=== PATIENT | female | born 1985 | race Caucasian/White ===

== ENCOUNTER 2021-10-05 08:28 | Outpatient (CLI) | payer OTHER, SELFPAY ==
[2021-10-05 13:51] LABS: Chloride* 106 mmol/L (96-114); Potassium* 4.2 mmol/L (3.6-5.1); Sodium* 138 mmol/L (135-149)
[2021-10-05 13:54] LABS: Carbon Dioxide* 26 mmol/L (20-32); Creatinine* 0.7 mg/dL (0.5-1.5); Estimated Glomerular Filt Rate 114.88; Hematocrit 35.9 % (33.0-51.0); Hemoglobin* 11.6 gm/dL (12.0-16.0); Mean Corpuscular HGB Conc 32 gm/dL (32-36); Mean Corpuscular Hemoglobin 26 pg (26-34); Mean Corpuscular Volume 81 fL (80-100); Platelet Count* 235 K/uL (140-440); Red Blood Count 4.46 m/uL (4.00-5.20); White Blood Count* 5.35 K/uL (4.50-11.00)
[2021-10-05 13:55] LABS: Blood Urea Nitrogen* 18 mg/dL (5-24); Calcium* 9.4 mg/dL (8.4-10.6); Glucose* 104 mg/dL (60-115)
[2021-10-05 14:04] LABS: Slide Review Reflex No
[2021-10-05 15:01] LABS: SARS PCR* Negative SARS-CoV-2 (Negative)
[2021-10-05 21:55] LABS: Thyroid Stimulating Hormone* < 0.015 uIU/mL (0.270-4.20)
== END 2021-10-05 08:29 | disposition home or self-care (01) ==
PROVIDERS: PCP Family Medicine; Visit Provider Family Medicine
DX: Z20.822 Contact with and (suspected) exposure to COVID-19 (principal); Z01.818 Encounter for other preprocedural examination; E03.9 Hypothyroidism, unspecified
CPT/HCPCS: 80048; 84443; 85027; 87635

== ENCOUNTER 2021-10-06 06:33 | Day surgery (SDC) | payer OTHER, SELFPAY ==
[2021-10-06] VITALS (51 sets, daily range): BP systolic 112–137; BP diastolic 56–83; PULSE 56–97; RESP 14–18; TEMP 36.4–36.9; O2SAT 89–99; BMI 46.3
[2021-10-06] MEDS: LACTATED RINGERS 1000 ML 1,000 ML 35 ML IV ×2 (06:30→09:24)
[2021-10-06 07:19] LABS: Ur HCG Qualitative* Negative (Negative)
--- NOTE | 2021-10-06 07:29 | PM.GSPRC ---
Operative Note Date of procedure: 10/06/21 Type of Procedure: 1. Excisional biopsy of the right breast retroareolar tissue. Procedure Description: After discussing the risks and benefits of the procedure, the patient signed informed consent.? The operative site was marked and the patient was brought to the operating room and placed on the operating table in supine position.? Care was taken to pad the patient's pressure points.?? The patient was then intubated by anesthesia.?? The operative site was then prepped and draped in the usual sterile fashion.? A time-out was then performed. Local anesthetic was injected in the right periareolar skin and skin incision was made with a scalpel spanning from 4 o'clock to 7 o'clock. A disk of retroareolar ductal breast tissue was then excised with cautery. Dilated retroareolar duct was noted immediately adjacent to the nipple. During the dissection this duct was entered and gold brown and minimally thickened mucus like clear discharge came out from this duct. There were no masses palpable in the specimen. The excised retroareolar breast tissue was inked for orientation and sent to pathology for permanent section. Hemostasis was achieved with cautery. Additional local anesthetic was injected in the surgical field. The dilated duct was oversewn with a [id number] 3-0 Vicryl suture. Retroareolar breast tissue was then re-approximated with interrupted 3-0 Vicryl stitches. Dermal layer was re-approximated with interrupted 3-0 Vicryl stitches and skin was closed with a running 4-0 Monocryl stitch. Steris and sterile pressure dressing was applied over the incision. All counts were correct at the end of the case. Dr. Johnson from OBGYN than proceeded with her portion of the procedure. Findings: A single dilated duct posterior to the nipple. The duct was entered and clear jelly-like material along with small amount of gold simple fluid was noted to come from the duct. Anesthesia: GETA Surgeon: Rickey Kidd MD Estimated blood loss (mL): 2 Condition: stable Disposition: other (OBGYN proceeded with their portion of the procedure.)
[2021-10-06] MEDS: SCOPOLAMINE 1 MG/3 DAY PATCH 1 PATCH TD (07:48)
[2021-10-06] MEDS: CLINDAMYCIN 900 MG/6 ML VIAL IVPB (08:50)
[2021-10-06] MEDS: BUPIVACAINE 0.25% 30 ML 5 ML INJECTION (09:17)
[2021-10-06] MEDS: VASOPRESSIN 20 UNIT/ML INJ 10 UNIT SUBCUT (09:22)
--- NOTE | 2021-10-06 10:47 | PM.PROC ---
Procedure Note Time Seen by Provider: 10:48 Date Seen: 10/06/21 Date of procedure: 10/06/21 Will [facility] bill your pro fee for this procedure?: Yes Pre-op diagnosis: 36yo with uterine fibroids and menorrhagia Procedure: Total vaginal hysterectomy, bilateral salpingectomy, diagnostic cystoscopy. Procedure Description: Operative note: I was asked to assist Francoise Johnson MD with the patient's surgery. I aided in dissection, visualization, and obtaining hemostasis. Please see Dr. Johnson note for complete details. Surgeon: Francoise Johnson MD Resource Specialist: Ankita Oakley Pathology: specimen obtained, sent to pathology (Uterus, bilateral fallopian tubes.) Condition: stable Disposition: floor
[2021-10-06] MEDS: ESTROGENS, CONJUGATED VAGINAL 0.625 MG/G CREAM 1 APPLIC VAGINAL (10:48)
--- NOTE | 2021-10-06 11:10 | W.PM.GYNPROC ---
Procedure Note Date Seen: 10/06/21 Procedure Details: PREOPERATIVE DIAGNOSIS: Menorrhagia, fibroid uterus POSTOPERATIVE DIAGNOSIS: Menorrhagia, fibroid uterus PROCEDURE: Total vaginal hysterectomy with bilateral salpingectomy, cystoscopy. 260 g uterus. SURGEON: Francoise Johnson MD STOCK COUNTER: Ankita Oakley MD ANESTHESIA: General IV FLUIDS: 1700 mL crystalloid EBL: 150 mL FINDINGS: 1. On exam under anesthesia, uterus was mobile and anteverted. There were no palpable adnexal masses. 2. Upon cystoscopy performed at end of procedure, the bladder mucosa was normal in appearance. There were bilateral ureteral jets and no injury to the bladder dome. 3. Weight of specimen was 260 g. COMPLICATIONS: None PROCEDURE IN DETAIL: Patient was taken to the operating room with IV running. Prior to her hysterectomy, she had excision of breast papilloma mass performed by Dr. Ponce. She was under general anesthesia. After the excision of breast papilloma, she was repositioned in dorsal lithotomy with her legs fully supported in candy-cane stirrups. She received gentamicin and clindamycin in preoperative prophylaxis. Exam under anesthesia was performed for the above noted findings. Baer catheter was inserted. Weighted speculum was inserted. Cervix was grasped along its anterior and posterior lips with thyroid Cb clamps. The cervical vaginal junction was circumferentially infiltrated with dilute vasopressin. The cervical vaginal junction was then incised circumferentially with scalpel. The vaginal epithelium was dissected bluntly off bilateral uterosacral ligaments. Anterior colpotomy was performed sharply, and a Hopkins retractor was placed between the bladder and the uterus. The posterior colpotomy was performed sharply, and a long weighted speculum was placed in the cul-de-sac. Bilateral uterosacral ligaments were clamped, cut, suture ligated with 0 Vicryl, and tagged for later identification. The cardinal ligaments were serially clamped, cut, and suture ligated bilaterally with 0 Vicryl. Finally, the remnants of the broad ligament were clamped, cut, and suture ligated bilaterally, ultimately freeing the uterus from its attachments to the pelvis. The uterus was delivered through the vagina. Bilateral ovaries were normal in appearance. The pedicles of the fallopian tubes were grasped. The LigaSure Impact device was used to divide the tube was from the investing mesosalpinx bilaterally, and each was sent to pathology. Hemostasis of these pedicles was noted. All pedicles were exam. There was persistent bleeding along the pedicles of the broad and cardinal ligaments. Multiple pbhcrn-zy-[id number] sutures of 2-0 Vicryl were used bilaterally to obtain hemostasis. The angles of the vaginal cuff were closed with a stitch of 0 Vicryl, incorporating the distal most aspect of the uterosacral pedicle into the closure. The intervening vaginal cuff was closed with a series of [id number]-lz-[id number] sutures of 0 Vicryl. Hemostasis was noted. All instruments were removed from the vagina. Baer catheter was removed from the patient's bladder. Patient was administered IV sodium fluorescein to aid in visualization of ureteral jets. Cystoscopy was performed, revealing bilateral ureteral jets and no injury to the bladder. The cystoscope was removed and the Baer catheter replaced. Vaginal packing coated with Premarin cream was then placed in the patient's vagina. Patient tolerated procedure well and was taken to recovery area in stable condition.
[2021-10-06] MEDS: fentaNYL 100 MCG/2 ML inj 50 MCG IV ×2 (11:15→11:20)
[2021-10-06] MEDS: HYDROmorphone 0.5 mg/0.5 ml inj IVP ×2 (11:34→11:44)
--- NOTE | 2021-10-06 12:28 | W.ANESCHARGE ---
Anesthesia Charges Start Date/Time Anesthesia Start Date: 10/06/21 Anesthesia Start Time: 07:50 Stop Date/Time Anesthesia Stop Date: 10/06/21 Anesthesia Stop Time: 11:03 Summary Emergency: No
[2021-10-06] MEDS: KETOROLAC 30 MG/ML inj IVP ×2 (13:12→19:17)
[2021-10-06] MEDS: LACTATED RINGERS 1000 ML 1,000 ML 125 ML IV ×2 (13:54→23:12)
--- NOTE | 2021-10-06 14:16 | W.ANESCHARGE ---
Anesthesia Charges Start Date/Time Anesthesia Start Date: 10/06/21 Anesthesia Start Time: 07:50 Stop Date/Time Anesthesia Stop Date: 10/06/21 Anesthesia Stop Time: 11:03 Summary Emergency: No
--- NOTE | 2021-10-06 14:42 | P.GYNPN_ITS ---
NATIONAL SALES REPRESENTATIVE - A/P Assessment and plan (1) H/O total vaginal hysterectomy: Status: Acute Plan Postop day 0 status post total vaginal hysterectomy. Appropriate postoperative course. EBL was 150 mL. She will have complete blood count at 3:00 p.m.. Is this is reassuring, she will receive Lovenox tonight in prophylaxis against DVT. Otherwise, advance diet as tolerated. Ambulate when ready. She will have a voiding trial in a.m.. Anticipate discharge tomorrow. Postoperative Procedures: Procedures Operation Date: 10/06/21 07:45 Actual Procedure Side Surgeon p #1 Breast Excision Retro Areolar Tissue (45 min) Right Rickey Kidd MD p #2 Total Vaginal Hysterectomy, Bilateral Salpingectomy, Cystoscopy Francoise Johnson MD Postoperative day: 0 Postoperative status: doing well Time Spent With Patient Time: Total time spent is greater than 50% in coordination of care (as documented) at patient's floor/unit and/or counseling patient: Time with patient: less than 15 minutes NATIONAL SALES REPRESENTATIVE- PN:Subj Post-Op Subjective Time Seen by Provider: 14:00 Date Seen: 10/06/21 Post Operative Details: Post-operative day 0: status post total vaginal hysterectomy, bilateral salpingectomy, cystoscopy Also status post excision of breast papilloma by Dr. Kris Castillo reports some pelvic discomfort/pressure. She does have a vaginal pack in place. She does receive some Toradol, and thinks this will help. She is interested in eating something. Denies any chest pain, shortness of breath, or nausea. NATIONAL SALES REPRESENTATIVE-PN: Obj Exam Physical Exam: Vital signs: Temp Pulse Resp BP Pulse Ox 97.7 F 61 14 137/81 98 10/06/21 13:12 10/06/21 13:58 10/06/21 13:58 10/06/21 13:58 10/06/21 13:58 Narrative: General: Pleasant, no acute distress Heart: Regular rate and rhythm, no murmur or gallop Lungs: Clear to auscultation bilaterally Abdomen: Soft, normoactive bowel sounds in all 4 quadrants, nontender, not distended, no rebound or guarding Lower extremities: SCDs in place bilaterally Urinary Catheter Management: 2-way Urethral: Cath placed during this visit: no NATIONAL SALES REPRESENTATIVE - PN: Obj Data Labs Labs: Laboratory Results - last 24 hr 10/06/21 10/06/21 06:40 07:05 Urine HCG, Qual Negative Blood Type O Negative Antibody Screen NEGATIVE Crossmatch (AHG) See Detail
--- NOTE | 2021-10-06 15:06 | PM.GYNDS1 ---
DS: Providers Provider Date Seen: 10/07/21 Date of admission: 10/06/2021 Primary care physician: Jomar Seaman MD Admitting Clinician: Francoise Johnson MD Consults: Rosa Ponce MD Attending Physician on discharge: Francoise Johnson MD Date of Discharge: 10/07/21 DS: Diagnosis Discharge Diagnosis (1) H/O total vaginal hysterectomy: Status: Acute ENTERPRISE SOFTWARE DEVELOPER-Discharge Summary Hospital Course Hospital Course Narrative: Patient is a 36 year old woman admitted on 10/06/2021 for excision of breast papilloma, performed by Dr. Ponce, by total vaginal hysterectomy with bilateral salpingectomy and cystoscopy. This was performed for indication of menorrhagia. Intraoperative findings were notable for a 260 g uterus. Surgery was uncomplicated. Postoperative course has been uneventful. Vitals have been stable. She has remained afebrile. Today, on postoperative day 1, she was doing well. Time Spent with Patient Time attestation: Total time spent providing and/or coordinating discharge services: ENTERPRISE SOFTWARE DEVELOPER - Exam Physical Exam: Vital signs: Temp Pulse Resp BP Pulse Ox 97.7 F 61 14 137/81 98 10/06/21 13:12 10/06/21 13:58 10/06/21 13:58 10/06/21 13:58 10/06/21 13:58 ENTERPRISE SOFTWARE DEVELOPER - DS: Data Data Completed and Pending Labs on day of discharge: Labs from last 24 hours 10/06/21 10/06/21 10/06/21 08:22 07:05 06:40 Urine HCG, Qual Negative Surg PTH (Off-Site) Pending Blood Type O Negative Antibody Screen NEGATIVE Crossmatch (AHG) See Detail Procedures Procedures: Procedures Operation Date: 10/06/21 07:45 Actual Procedure Side Surgeon p #1 Breast Excision Retro Areolar Tissue (45 min) Right Rickey Kidd MD p #2 Total Vaginal Hysterectomy, Bilateral Salpingectomy, Cystoscopy Francoise Johnson MD Discharge Plan Discharge Disposition: Home, Self-Care Discharging Surgeon: Francoise Johnson Follow-Up Appointment: [address] Johnson Prescriptions: New acetaminophen 325 mg Tablet 650 mg PO Q4H PRN (Reason: minor pain) Qty: 60 0RF oxycodone 5 mg Tablet 5 mg PO Q4H PRN (Reason: Moderate Pain) 7 Days Qty: 20 0RF ibuprofen 600 mg tablet 600 mg PO Q6H PRNQty: 60 0RF Continued escitalopram oxalate 20 mg tablet 20 mg PO DAILY 0RF levothyroxine 200 mcg tablet 200 mcg PO DAILY 0RF Rx Instructions: total dose 225 mcg QD levothyroxine 25 mcg tablet 25 mcg PO DAILY 0RF Rx Instructions: Total dose is 225 mcg QD No Action phentermine 37.5 mg capsule 37.5 mg PO DAILY Qty: 30 2RF Activity Level: No Restrictions Activity Detail: Nothing per vagina for 6 weeks. No lifting restriction. Discharge Diet: Regular Patient Instructions: Surgical Site Infections (DC), Vaginal Hysterectomy (DC) Additional Instructions: Hospital Course: Anna was admitted to the hospital on 10/06/2021 for a scheduled total vaginal hysterectomy to treat menorrhagia and uterine fibroids. Her surgery was uncomplicated. Her postoperative course was also uncomplicated. Her vaginal packing was removed in the evening on postop day 0. By postoperative day 1, she was tolerating a regular diet, ambulating without difficulty, passing flatus and pain was well controlled with oral pain medications. She would like to be discharged home today on postoperative day 1. Labs: Preoperative hemoglobin 11.6 on 10/05/2021, postoperative hemoglobin 11.2 on 10/06/2021. Objective: General: Alert and oriented x3. Pleasant, woman in no acute distress. Vital signs: See EMR. Heart: Regular rate and rhythm without gallop, rub or murmur. Chest: Clear to auscultation bilaterally. Abdomen: Soft, nontender, nondistended with normal bowel sounds throughout. No CVA or flank tenderness. Pelvic: Minimal vaginal bleeding, remainder of pelvic exam deferred. Extremities: No pain, edema, cyanosis or clubbing. Assessment: 36-year-old postoperative day 1 from a total vaginal hysterectomy doing well. Plan: 1. Discharge home today. 2. Activity restrictions reviewed with the patient. 3. Return to clinic to see Dr. Francoise Johnson for a postoperative visit in 2-3 weeks. Discharge instructions were reviewed with the patient including signs and symptoms of infection and medications to use for pain.? ? No lifting restriction. Nothing per vagina for 6 weeks. Off work or school for 4 weeks. ? Follow up with your surgeon in 2-3 weeks for a postop exam. Forms: Work/Release Restrictions Follow-up: Francoise Johnson MD [Staff Physician] - Jomar Seaman MD [Primary Care Provider] - Discharge Orders: Discharge Order (Routine); Ordered 10/07/21 Ordered By: Ankita Oakley
[2021-10-06 15:38] LABS: Basophils Absolute Auto 0.01 K/uL (0.00-0.30); Basophils Percent Auto 0.1 % (0.0-3.0); Eosinophils Absolute Auto 0.01 K/uL (0.00-0.50); Eosinophils Percent Auto 0.1 % (0.0-7.0); Hematocrit 34.9 % (33.0-51.0); Hemoglobin* 11.2 gm/dL (12.0-16.0); Immature Granulocytes Abs Auto 0.01 K/uL (0.00-0.30); Lymphocytes Percent Auto 5.8 % (20-44); Mean Corpuscular HGB Conc 32 gm/dL (32-36); Mean Corpuscular Hemoglobin 26 pg (26-34); Mean Corpuscular Volume 80 fL (80-100); Monocytes Percent Auto 2.8 % (0.0-11.0); Neutrophils Percent Auto 91.1 % (42.0-72.0); Platelet Count* 238 K/uL (140-440); RDW Coefficient of Variation % 14.2 % (11.5-15.5); Red Blood Count 4.34 m/uL (4.00-5.20); White Blood Count* 10.08 K/uL (4.50-11.00)
[2021-10-06 15:43] LABS: Slide Review Reflex No
[2021-10-06] MEDS: ACETAMINOPHEN 325 MG TABLET 650 MG PO (18:26)
[2021-10-06] MEDS: OXYCODONE 5 MG TABLET PO (20:03)
[2021-10-06] MEDS: ENOXAPARIN 40 MG/0.4 ML INJ SUBCUT (20:04)
[2021-10-07] MEDS: ACETAMINOPHEN 325 MG TABLET 650 MG PO ×3 (00:23→08:14)
[2021-10-07] MEDS: OXYCODONE 5 MG TABLET PO ×3 (00:24→08:15)
[2021-10-07 00:27] VITALS: BP 110/67; PULSE 60; RESP 16; TEMP 36.4; O2SAT 97
[2021-10-07] MEDS: KETOROLAC 30 MG/ML inj IVP (01:19)
[2021-10-07 04:31] VITALS: BP 107/68; PULSE 83; RESP 16; TEMP 36.6; O2SAT 96
[2021-10-07 07:36] VITALS: BP 108/70; PULSE 60; RESP 16; TEMP 36.7; O2SAT 99
[2021-10-07 07:42] VITALS: PULSE 60; RESP 16
== END 2021-10-07 09:40 | disposition home or self-care (01) ==
LOC: OR 06:34 → MEDSURG 06:40 → OB 09:52
PROVIDERS: Obstetrics & Gynecology; PCP Family Medicine; Visit Provider Surgery
PROC: (CPT 19120; principal; 2021-10-06 07:30)
PROC: 0UT94ZZ Resection of Uterus, Percutaneous Endoscopic Approach (ICD-10-PCS; CPT 58291; 2021-10-06 07:30)
DX: N92.0 Excessive and frequent menstruation with regular cycle (principal); D25.9 Leiomyoma of uterus, unspecified; D24.1 Benign neoplasm of right breast
CPT/HCPCS: 58291; 19120; 00944; 36415; 81025; 82565; 85018; 85025; 86850; 86900; 86901; 86922; 88307; A9270; J0330; J1100; J1170; J1580; J1650; J1885; J2250; J2704; J3010; J3490; J7120; S0077

== ENCOUNTER 2022-02-13 09:42 | Outpatient (CLI) | payer OTHER, SELFPAY ==
--- OUTSIDE RECORDS SUMMARY | 2022-02-13 09:56 | XMS_ITS | Encounter Summary ---
:1985 Author Organization [facility] Address [address] [place] [address] Care Team Providers Name Role Phone No Ref-Primary, Physician Primary Care Provider [phone] Hawa Valderrama PETROLEUM PRODUCTION ENGINEER Unavailable Reason for Visit Reason Onset Date Comments Schedule Surgery 04/02/2020 RIGHT BREAST SEED LO CALIZED EXCISIONAL BIOPSY GENERAL PT INST TO HAVE H&P WIT H PCP 60 MIN REQ PA ASSIST DJM NMS SEED AT 8:00 AM NMS Encounter Details Date Type Department Care Team Description 04/02/2020 Telephone [facility] Marina Mix MD Schedule Surgery Surgery Clinic [address] (RIGHT BREAST SEED [place] [address] LOCALIZED EXCISIONAL [address] [facility] [place] [address] BIOPSY GENERAL PT INST [address] TO HAVE H&P WITH PCP [place], [place] 60 MIN REQ PA ASSIST [id number] DJM NMS SEED AT 8:00 AM NMS ) Social History Tobacco Use Types Packs/Day Years Used Date Smoking Tobacco: Never Smokeless Tobacco: Never Alcohol Habits Answer Date Recorded How often do you have a drink containing alcohol? Never 04/19/2020 How many drinks containing alcohol do you have on a typical Not asked day when you are drinking? How often do you have six or more drinks on one occasion? No t asked Sex Assigned at Date Recorded Not on file COVID-19 Exposure Response Date Recorded In the last month, have you been in contact with No / Unsure 04/01/2020 3:49 PM TRADES HELPER someone who was confirmed or suspected to have Coronavirus / COVID-19? documented as of this encounter Miscellaneous Notes Telephone Encounter - Maria Luisa Kim CMA - 04/02/2020 9:50 AM CST Type of surgery: RIGHT BREAST SEED LOCALIZED EXCISIONAL BIOPSY Location of surgery: [facility] Date and time of surgery: 05/14/2020 @ 10:00 AM Surgeon: MARINA MIX MD Pre-Op Appt Date: PATIENT TO SCHEDULE Post-Op Appt Date: PATIENT TO SCHEDULE Packet sent out: Yes Pre-cert/Authorization completed: Not Applicable Date: 04/01/2020 RIGHT BREAST SEED LOCALIZED EXCISIONAL BIOPSY GENERAL PT INST TO HAVE H&P WITH PCP 60 MIN REQ PAASSIST MADDI NMS SEED AT 8:00 AM NMS ES HELPER documented in this encounter Plan of Treatment Not on filedocumented as of this encounter Visit Diagnoses Not on filedocumented in this encounter Care Teams Identity Management Consultant Relationship Specialty Start Date End Date No Ref-Primary, Physician PCP - General 04/01/20 Hawa Valderrama, KEN Assigned PCP 03/25/20 [place] [address] documented as of this encounter
--- OUTSIDE RECORDS SUMMARY | 2022-02-13 09:56 | XMS_ITS | Encounter Summary ---
:1985 Author Organization [facility] Address [address] [place] [address] Care Team Providers Name Role Phone No Ref-Primary, Physician Primary Care Provider [phone] Hawa Valderrama NP Unavailable Jomar Castro MD Unavailable Reason for Referral Diagnostic Imaging Ultrasound (Routine) - Closed Specialty Diagnoses / Procedures Referred By Contact Refer red To Contact Diagnoses Papilloma of right breast Jomar Castro MD Procedures US Breast Radioactive Seed Placement, 1St Lesion Right [address] [facility] [address] [place] [address] Referral ID Status Reason Start Date Expiration Date Visits Requ ested Visits Authorized [id number] Closed 04/02/2020 04/02/2021 1 1 N HOSPITALIST PHYSICIAN Reason for Visit Auth/Cert Specialty Diagnoses / Procedures Referred By Contact Refer red To Contact Surgery Diagnoses Papilloma of breast Papilloma of breast [D24.9] Rh Periop Services Procedures HC BX BREAST W DEVICE 1ST LESION, STEREOTACTIC GUIDE HC BX BREAST W DEVICE 1ST LESION, ULTRASOUND GUIDE HC BX BREAST W DEVICE 1ST LESION, MAGNETIC RES GUIDE RIGHT BREAST SEED LOCALIZED EXCISIONAL BIOPSY [address] [place], [place] [address] Phone: Fax: Referral ID Status Reason Start Date Expiration Date Visits Requ ested Visits Authorized [id number] 1 1 Encounter Details Date Type Department Care Team Description 05/14/2020 Hospital Encounter [facility] Jomar Castro, Papilloma of right [facility] [address] [facility] [address] [place], [place] [id number] Social History Tobacco Use Types Packs/Day Years Used Date Smoking Tobacco: Never Smokeless Tobacco: Never Alcohol Use Standard Drinks/Week Comments Yes 0 (1 standard drink = 0.6 oz pure alcoho l) 2 drinks per year Alcohol Habits Answer Date Recorded How often [...] been in contact with No / Unsure 05/14/2020 6:57 AM OBGYN HOSPITALIST PHYSICIAN someone who was confirmed or suspected to have Coronavirus / COVID-19? documented as of this encounter Medications at Time of Discharge Medication Sig Dispensed Refills Start Date End Date levothyroxine Take 1 tablet (200 90 tablet 3 04/19/2020 (SYNTHROID/LEVOTHROID) 200 mcg) by mouth daily MCG tabletIndications: Other specified hypothyroidism oxyCODONE (ROXICODONE) 5 MG Take 1-2 tablets 10 tablet 0 tabletIndications: (5-10 mg) by mouth Papilloma of right breast every 4 hours as needed for moderate to severe pain documented as of this encounter Progress Notes Anuradha Bains - 05/14/2020 8:22 AM CST SBAR Seed Localization SITUATION: Patient to breast imaging center for imaging guided seed localizations before breast lumpectomy or excision biopsy without sentinel node injection. BACKGROUND: Breast imaging cancer, breast abnormality Ordered procedure completed: Yes Special needs identified: Yes ASSESSMENT: SBAR report called to patient care unit because of unexpected event in radiology: No Allergies and medication list reviewed prior to procedure. Yes Skin cleansed with ChloraPrep One-Step. Anesthesia: approximately 5ml of 1% Lidocaine injection subcutaneous before seed insertion administered by the radiologist. Gauze dressing over insertion site(s). Post procedure mammogram completed: Yes Patient tolerance: Patient tolerated procedure well. RECOMMENDATIONS: Patient transferred to Same Day Surgery in stable condition via wheelchair with Transport Services. Please call [facility] [place] [phone] if there are any questions. N HOSPITALIST PHYSICIAN documented in this encounter Plan of Treatment Not on filedocumented as of this encounter Procedures Procedure Name Priority Date/Time Associated Comments Diagnosis US BREAST RADIOACTIVE Routine 05/14/2020 8:22 AM Papilloma of right Results for this SEED PLACEMENT, 1ST OBGYN HOSPITALIST PHYSICIAN breast procedur e are in LESION RIGHT the results section. documented in this encounter Results US Breast Radioactive Seed Placement, 1St Lesion Right (05/14/2020 8:22 AM OBGYN HOSPITALIST PHYSICIAN) Anatomical Region Laterality Modality Breast Right Ultrasound Specimen (Source) Anatomical Location Collection Method / Collectio n Time Received Time / Laterality Volume Impressions 05/14/2020 8:26 AM OBGYN HOSPITALIST PHYSICIAN IMPRESSION: Successful placement of radioactive seed(s) for operative guidance. JUAN HAN MD Narrative 05/14/2020 8:26 AM OBGYN HOSPITALIST PHYSICIAN RIGHT BREAST SEED LOCALIZATION; POST SEED PLACEMENT RIGHT DIGITAL MAMMOG CINDA; 05/14/2020 8:24 AM HISTORY: Papilloma. Imaging directed loc alization requested prior to excision. COMPARISON: 03/25/2020 PROCEDURE: ??Informed consent was obtain ed prior to the procedure. ??The skin overlying the target lesion was mar ked, sterilized and anesthetized using 1% lidocaine. ??Using continuous ultrasound guidance, one radioactive seed(s) was/we re deployed adjacent to biopsy marker. ??Adequate placement was confirm ed with imaging. ??Images were archived. There were no complications. Post procedure mammogram confirms satisf actory positioning of the seed(s). ??The images were annotated and provided to the surgeon. Total seed radiation dose: 0.170 mCi I12 5 Procedure Note Juan Han MD - 05/14/2020 RIGHT BREAST SEED LOCALIZATION; POST SEED PLACEMENT RIGHT DIGITAL MAMMOG CINDA; 05/14/2020 8:24 AM HISTORY: Papilloma. Imaging directed loc alization requested prior to excision. COMPARISON: 03/25/2020 PROCEDURE: Informed consent was obtained prior to the procedure. The skin overlying the target lesion was mar ked, sterilized and anesthetized using 1% lidocaine. Using c ontinuous ultrasound guidance, one radioactive seed(s) was/we re deployed adjacent to biopsy marker. Adequate placement was confirmed with imaging. Images were archived. There were no complications. Post procedure mammogram confirms satisf actory positioning of the seed(s). The images were annotated and p rovided to the surgeon. Total seed radiation dose: 0.170 mCi I12 5 IMPRESSION: Successful placement of radi oactive seed(s) for operative guidance. JUAN HAN MD Jomar Castro MD IMG US ORDERABLES documented in this encounter Visit Diagnoses Diagnosis Papilloma of right breast documented in this encounter Administered Medications Inactive Administered Medications - up to 3 most recent administrations Medication Order MAR Action Action Date Dose Rate Site lidocaine 1 % 5 mL Given 05/14/2020 8:12 AM OBGYN HOSPITALIST PHYSICIAN 5 mLs 5 mL, Subcutaneous, ONCE, On Sun05/14/20 at 0800, For 1 dose documented in this encounter Care Teams Heavy Forger Helper Relationship Specialty Start Date End Date No Ref-Primary, Physician PCP - General 04/01/20 Hawa Valderrama, KEN Assigned PCP 03/25/20 [address] [place] [address] Jomar Castro MD Assigned Surgical Provider 04/04/20 7 [address] [place] [id number] documented as of this encounter
--- OUTSIDE RECORDS SUMMARY | 2022-02-13 09:56 | XMS_ITS | Encounter Summary ---
:1985 Author Organization [place] Address [facility] [place] [address] Care Team Providers Name Role Phone No Ref-Primary, Physician Primary Care Provider [phone] Hawa Valderrama NP Unavailable Jomar Castro MD Unavailable Reason for Visit Auth/Cert Specialty Diagnoses / [...] LOCALIZED EXCISIONAL BIOPSY [address] [place], [place] [phone] Phone: Fax: Referral ID Status Reason Start Date Expiration Date Visits Requ ested Visits Authorized [id number] 1 1 Encounter Details Date Type Department Care Team Description 05/14/2020 Hospital Encounter [facility] Jomar Castro, Papilloma of right [facility] [address] [facility] [address] [facility], [address] [place] [id number] Social History Tobacco Use Types Packs/Day [...] with No / Unsure 05/14/2020 6:57 AM [employer] someone who was confirmed or suspected to [...] severe pain documented as of this encounter Plan of Treatment Not on filedocumented as of this encounter Visit Diagnoses Diagnosis Papilloma of right breast documented in this encounter Care Teams E Tailer Relationship Specialty Start Date End Date No Ref-Primary, Physician PCP - General 04/01/20 Hawa Valderrama NP Assigned PCP 03/25/20 [address] [place] [address] Jomar Castro MD Assigned Surgical Provider 04/04/20 [address] [place] [id number] documented as of this encounter
--- OUTSIDE RECORDS SUMMARY | 2022-02-13 09:56 | XMS_ITS | Encounter Summary ---
:1985 Author Organization [facility] [place] [address] Care Team Providers Name Role Phone No Ref-Primary, Physician Primary Care Provider [phone] Hawa Valderrama NP Unavailable Marina Castro MD Unavailable Reason for Visit Auth/Cert [...] LOCALIZED EXCISIONAL BIOPSY [address] [place], [place] [address] Phone: Fax: Referral ID Status Reason Start Date Expiration Date Visits Requ ested Visits Authorized [id number] 1 1 Encounter Details Date Type Department Care Team Description 05/14/2020 Hospital Encounter [facility] Marina Castro, Papilloma of breast; [facility] PreOP/PostOP Papilloma of breast; [address] [facility] [address] Papilloma of right breast [facility] [address] [id number] [place], [place] [phone] [id number] Social History Tobacco Use Types Packs/Day Years [...] with No / Unsure 05/14/2020 6:57 AM STAMP REDEMPTION CLERK someone who was confirmed or suspected to have Coronavirus / COVID-19? documented as of this encounter Last Filed Vital Signs Vital Sign Reading Time Taken Comments Blood Pressure 105/57 05/14/2020 12:50 PM STAMP REDEMPTION CLERK Pulse 59 05/14/2020 12:50 PM STAMP REDEMPTION CLERK Temperature 36.4 ??C (97.6 ??F) 05/14/2020 12:50 PM STAMP REDEMPTION CLERK Respiratory Rate 16 05/14/2020 12:50 PM STAMP REDEMPTION CLERK Oxygen Saturation 100% 05/14/2020 12:50 PM STAMP REDEMPTION CLERK Inhaled Oxygen Concentration - - Weight 122 kg (268 lb 14.4 oz) 05/14/2020 7:14 AM STAMP REDEMPTION CLERK Height 170.2 cm (5' 7) 05/14/2020 7:14 AM STAMP REDEMPTION CLERK Body Mass Index 42.12 05/14/2020 7:14 AM STAMP REDEMPTION CLERK documented in this encounter Discharge Instructions Discharge Agnes James RN - 05/14/2020 11:49 AM CST HOME CARE FOLLOWING BREAST BIOPSY Myrtle Pop, Princess Mccarty, R. O???Josue Anton RESULTS: You will receive a phone call from your surgeon or office staff with your pathology results. Occasionally special testing must be done on the surgical specimen which may delay the posting of your finalpathology report. You may call for your final pathology report after 1p.m. three working days after surgery to check on its status. INCISIONAL CARE: ??? If you have a dressing in place, keep clean and dry for 48 hours; you may replace the gauze if it becomes soiled. ??? After 48 hours you may remove the dressing and shower. Do not submerse incision in water for 1 week. ??? Sutures will absorb and do not need to be removed. ??? If present, leave the steri-strips (white paper tapes) in place for 14 days after surgery. ??? You may expect a small amount of drainage from your incision. ??? A lump/ridge under the incision is normal and will gradually resolve. SUPPORT: Wear a bra for support and comfort for 3-7 days, day and night. ACTIVITY: Cautiously resume exercise and strenuous activities such as jogging, tennis, aerobics, etc. Also, becareful of stretching activities with operative side for two weeks. DIET: Start with liquids and gradually resume your regular diet as tolerated. Increased fluid intake is recommended. While taking pain medications, consider use of a stool softener, increase your fiber in your diet, or add a fiber supplement (like Metamucil, Citrucel) to help prevent constipation - a possible side effect of pain medications. DISCOMFORT: Local anesthetic placed at surgery should provide relief for 4-8 hours. Begin taking pain pills before discomfort is severe. Take the pain medication with some food, when possible, to minimize side effects. Intermittent use of ice packs may help during the first 1-3 weeks after surgery. Expect gradual improvement. Ufzb-pav-npzttja anti-inflammatory medications (i.e. Ibuprofen/Advil/Motrin or Naprosyn/Aleve) may be used per package instructions in addition to or while tapering off the narcotic pain medications todecrease swelling and sensitivity. DO NOT TAKE these Anti-inflammatory medications if your primary physician has advised against doing so, or if you have acid reflux, ulcer, or bleeding disorder, or take blood-thinner medications. Call your primary physician or the surgery office if you have medication questions. FOLLOW-UP AFTER SURGERY: -Our office will contact you approximately 2-3 weeks after surgery to check on your progress and answer any questions you may have. If you are doing well, you will not need to return for an office appointment. If any concerns are identified over the phone, we will help you make an appointment to see a provider. -If you have not received a phone call, have any questions or concerns, or would like to be seen, please call us at [phone]. We are located at: [address], [address]; [place] [address] -CONTACT US IF THE FOLLOWING DEVELOPS: 1. A fever that is above 101?? 2. Increased redness, warmth, drainage, bleeding, or swelling. 3. Pain that is not relieved by rest/ice and your prescription. 4. Increasing pain after 48 hours. 5. Drainage that is thick, cloudy, yellow, green or white. 6. Any other questions or concerns. FREQUENTLY ASKED QUESTIONS: Q: How should my incision look? A: Normally your incision will appear slightly swollen with light redness directly along the incision itself as it heals. It may feel like a bump or ridge as the healing/scarring happens, and over time(3-4 months) this bump or ridge feeling should slowly go away. In general, clear or pink watery drainage can be normal at first as your incision heals, but should decrease over time. Q: How do I know if my incision is infected? A: Look at your incision for signs of infection, like redness around the incision spreading to surrounding skin, or drainage of cloudy or foul-smelling drainage. If you feel warm, check your temperature to see if you are running a fever. If any of these things occur, please notify the nurse at our office. We may need you to come into the office for an incision check. Q: How do I take care of my incision? A: If you have a dressing in place - Starting the day after surgery, replace the dressing 1-2 times a day until there is no further drainage from the incision. At that time, a dressing is no longer needed. Try to minimize tape on the skin if irritation is occurring at the tape sites. If you have significant irritation from tape on the skin, please call the office to discuss other method of dressing your incision. Small pieces of tape called ???steri-strips?? may be present directly overlying your incision; these may be removed 10 days after surgery unless otherwise specified by your surgeon. If these tapes start to loosen at the ends, you may trim them back until they fall off or are removed. Q: There is a piece of tape or a sticky ???lead?? still on my skin. Can I remove this? A: Sometimes the sticky ???leads?? used for monitoring during surgery or for evaluation in the emergency department are not all removed while you are in the hospital. These sometimes have a tab or metal dot on them. You can easily remove these on your own, like taking off a band-aid. If there is a gel substance under the ???lead?? , simply wipe/clean it off with a washcloth or paper towel. Q: What can I do to minimize constipation (very hard stools, or lack of stools)? A: Stay well hydrated. Increase your dietary fiber intake or take a fiber supplement -with plenty ofwater. Walk around frequently. You may consider an lkcr-jiz-loejdca stool-softener. Your Pharmacist can assist you with choosing one that is stocked at your pharmacy. Constipation is also one of the most common side effects of pain medication. If you are using pain medication, be pro-active and try toPREVENT problems with constipation by taking the steps above BEFORE constipation becomes a problem. Q: What do I do if I need more pain medications? A: Call the office to receive refills. Be aware that certain pain meds cannot be called into a pharmacy and actually require a paper prescription. A change may be made in your pain med as you progress thru your recovery period or if you have side effects to certain meds. --Pain meds are NOT refilled after 5pm on weekdays, and NOT AT ALL on the weekends, so please look ahead to prevent problems. Q: Why am I having a hard time sleeping now that I am at home? A: Many medications you receive while you are in the hospital can impact your sleep for a number of days after your surgery/hospitalization. Decreased level of activity and naps during the day may alsomake sleeping at night difficult. Try to minimize day-time naps, and get up frequently during the day to walk around your home during your recovery time. Sleep aides may be of some help, but are not recommended for long-term use. Q: I am having some back discomfort. What should I do? A: This may be related to certain positioning that was required for your surgery, extended periods of time in bed, or other changes in your overall activity level. You may try ice, heat, acetaminophen,or ibuprofen to treat this temporarily. Note that many pain medications have acetaminophen in them and would state this on the prescription bottle. Be sure not to exceed the maximum of 4000mg per day of acetaminophen. If the pain you are having does not resolve, is severe, or is a flare of back pain you have had onother occasions prior to surgery, please contact your primary physician for further recommendations or for an appointment to be examined at their office. Q: Why am I having headaches? A: Headaches can be caused by many things: caffeine withdrawal, use of pain meds, dehydration, high blood pressure, lack of sleep, over-activity/exhaustion, flare-up of usual migraine headaches. If youfeel this is related to muscle tension (a band-like feeling around the head, or a pressure at the low-back of the head) you may try ice or heat to this area. You may need to drink more fluids (try electrolyte drink like Gatorade), rest, or take your usual migraine medications. If your headaches do not resolve, worsen, are accompanied by other symptoms, or if your blood pressure is high, please call your primary physician for recommendation and/or examination. Q: I am unable to urinate. What do I do? A: A small percentage of people can have difficulty urinating initially after surgery. This includesbeing able to urinate only a very small amount at a time and feeling discomfort or pressure in the very low abdomen. This is called ???urinary retention?? , and is actually an urgent situation. Proceedto your nearest Emergency department for evaluation (not an Urgent Care Center). Sometimes the bladder does not work correctly after certain medications you receive during surgery, or related to certain procedures. You may need to have a catheter placed until your bladder recovers. When planning to goto an Emergency department, it may help to call the ER to let them know you are coming in for this problem after a surgery. This may help you get in quicker to be evaluated. If you have symptoms of a urinary tract infection, please contact your primary physician for the proper evaluation and treatment. If you have other questions, please call the office Sunday thru Sunday between 8am and 5pm to discuss with the nurse or physician placement assistant. # There is a surgeon SPLASH LINE OPERATOR on weekday evenings and over the weekend in case of urgent need only, andmay be contacted at the same number. If you are having an emergency, call 911 or proceed to your nearest emergency department. GENERAL ANESTHESIA OR SEDATION ADULT DISCHARGE INSTRUCTIONS SPECIAL PRECAUTIONS FOR 24 HOURS AFTER SURGERY IT IS NOT UNUSUAL TO FEEL LIGHT-HEADED OR FAINT, UP TO 24 HOURS AFTER SURGERY OR WHILE TAKING PAIN MEDICATION. IF YOU HAVE THESE SYMPTOMS; SIT FOR A FEW MINUTES BEFORE STANDING AND HAVE SOMEONE ASSIST YOU WHEN YOU GET UP TO WALK OR USE THE BATHROOM. YOU SHOULD REST AND RELAX FOR THE NEXT 24 HOURS AND YOU MUST MAKE ARRANGEMENTS TO HAVE SOMEONE STAY WITH YOU FOR AT LEAST 24 HOURS AFTER YOUR DISCHARGE. AVOID HAZARDOUS AND STRENUOUS ACTIVITIES. DO NOTMAKE IMPORTANT DECISIONS FOR [address] ANY VEHICLE OR OPERATE MECHANICAL EQUIPMENT FOR 24 HOURS FOLLOWING THE END OF YOUR SURGERY. EVEN THOUGH YOU MAY FEEL NORMAL, YOUR REACTIONS MAY BE AFFECTED BY THE MEDICATION YOU HAVE RECEIVED. DO NOT DRINK ALCOHOLIC BEVERAGES FOR 24 HOURS FOLLOWING YOUR SURGERY. DRINK CLEAR LIQUIDS (APPLE JUICE, BHUMI JOSE, 7-UP, BROTH, ETC.). PROGRESS TO YOUR REGULAR DIET YOU FEEL ABLE. YOU MAY HAVE A DRY MOUTH, A SORE THROAT, MUSCLES ACHES OR TROUBLE SLEEPING. THESE SHOULD GO AWAY AFTER 24 HOURS. CALL YOUR DOCTOR FOR ANY OF THE FOLLOWING: SIGNS OF INFECTION (FEVER, GROWING TENDERNESS AT THE SURGERY SITE, A LARGE AMOUNT OF DRAINAGE OR BLEEDING, SEVERE PAIN, FOUL-SMELLING DRAINAGE, REDNESS OR SWELLING. IT HAS BEEN OVER 8 TO 10 HOURS SINCE SURGERY AND YOU ARE STILL NOT ABLE TO URINATE (PASS WATER). P REDEMPTION CLERK documented in this encounter Medications at Time of Discharge [...] severe pain documented as of this encounter H&P Notes Tan Saucedo DO - 05/14/2020 9:14 AM CST I have reviewed the surgical (or preoperative) H&P that is linked to this encounter, and examined the patient. There are no significant changes P REDEMPTION CLERK Source Note - Hawa Valderrama NP - 04/19/2020 3:40 PM STAMP REDEMPTION CLERK [place] [address] [address] [facility] [id number] Primary Provider: No Ref-Primary, Physician PREOPERATIVE EVALUATION: Today's date: 04/19/2020 Anna Reed is a 34 year old female who presents for a preoperative evaluation. Surgical Information: Surgery/Procedure: Right breast seed localized excisional biopsy Surgery Location: [facility] Surgeon: Dr. Marina Castro Surgery Date: 05/14/20 Time of Surgery: 10 AM Where patient plans to recover: At home with family Fax number for surgical facility: Note does not need to be faxed, will be available electronically in theScore. Type of Anesthesia Anticipated: General Subjective HPI related to upcoming procedure: Preop Questions 04/19/2020 1. Have you ever had a heart attack or stroke? No 2. Have you ever had surgery on your heart or blood vessels, such as a stent placement, a coronary artery bypass, or surgery on an artery in your head, neck, heart, or legs? No 3. Do you have chest pain with activity? No 4. Do you have a history of heart failure? No 5. Do you currently have a cold, bronchitis or symptoms of other infection? No 6. Do you have a cough, shortness of breath, or wheezing? No 7. Do you or anyone in your family have previous history of blood clots? No 8. Do you or does anyone in your family have a serious bleeding problem such as prolonged bleeding following surgeries or cuts? No 9. Have you ever had problems with anemia or been told to take iron pills? No 10. Have you had any abnormal blood loss such as black, tarry or bloody stools, or abnormal vaginal bleeding? No 11. Have you ever had a blood transfusion? No 12. Are you willing to have a blood transfusion if it is medically needed before, during, or after your surgery? Yes 13. Have you or any of your relatives ever had problems with anesthesia? UNKNOWN - 14. Do you have sleep apnea, excessive snoring or daytime drowsiness? No 15. Do you have any artifical heart valves or other implanted medical devices like a pacemaker, defibrillator, or continuous glucose monitor? No 16. Do you have artificial joints? No 17. Are you allergic to latex? No 18. Is there any chance that you may be ? No Health Care Directive: Patient does not have a Health Care Directive or Living Will: Discussed advance care planning with patient; however, patient declined at this time. Preoperative Review of BILLBOARD POSTER HELPER: BILLBOARD POSTER HELPER reviewed - no record of controlled substances prescribed. Review of Systems CONSTITUTIONAL: NEGATIVE for fever, chills, change in weight INTEGUMENTARY/SKIN: NEGATIVE for worrisome rashes, moles or lesions EYES: NEGATIVE for vision changes or irritation ENT/MOUTH: NEGATIVE for ear, mouth and throat problems RESP: NEGATIVE for significant cough or SOB BREAST: NEGATIVE for masses, tenderness or discharge CV: NEGATIVE for chest pain, palpitations or peripheral edema GI: NEGATIVE for nausea, abdominal pain, heartburn, or change in bowel habits : NEGATIVE for frequency, dysuria, or hematuria MUSCULOSKELETAL: NEGATIVE for significant arthralgias or myalgia NEURO: NEGATIVE for weakness, dizziness or paresthesias ENDOCRINE: NEGATIVE for temperature intolerance, skin/hair changes HEME: NEGATIVE for bleeding problems PSYCHIATRIC: NEGATIVE for changes in mood or affect Patient Active Problem List Diagnosis Date Noted ??? Papilloma of breast 04/02/2020 Priority: Medium Added automatically from request for surgery [id number] ??? Morbid obesity (H) 04/01/2020 Priority: Medium History reviewed. No pertinent past medical history. History reviewed. No pertinent surgical history. Current Outpatient Medications Medication Sig Dispense Refill ??? levothyroxine (SYNTHROID/LEVOTHROID) 200 MCG tablet Take 200 mcg by mouth daily Allergies Allergen Reactions ??? Penicillins Anaphylaxis Social History Tobacco Use ??? Smoking status: Never Smoker ??? Smokeless tobacco: Never Used Substance Use Topics ??? Alcohol use: Never Frequency: Never History Drug Use Unknown Objective BP 122/74 (BP Location: Right arm, Patient Position: Sitting, Cuff Size: Adult Large) Pulse 90 Temp 98 ??F (36.7 ??C) (Oral) Ht 1.702 m (5' 7) Wt 125.1 kg (275 lb 12.8 oz) LMP 03/28/2020 (Approximate) SpO2 98% BMI 43.20 kg/m?? Physical Exam GENERAL APPEARANCE: alert, no distress and morbidly obese EYES: EOMI, PERRL NECK: no adenopathy, no asymmetry, masses, or scars and thyroid normal to palpation RESP: lungs clear to auscultation - no rales, rhonchi or wheezes CV: regular rates and rhythm, normal S1 S2, no S3 or S4 and no murmur, click or rub ABDOMEN: soft, nontender, no HSM or masses and bowel sounds normal MS: extremities normal- no gross deformities noted, no evidence of inflammation in joints, FROM in all extremities. SKIN: no suspicious lesions or rashes NEURO: Normal strength and tone, sensory exam grossly normal, mentation intact and speech normal PSYCH: mentation appears normal. and affect normal/bright LYMPHATICS: No cervical adenopathy No results for input(s): HGB, PLT, INR, NA, POTASSIUM, CR, A1C in the last 14753 hours. Diagnostics: No EKG required for low risk surgery (cataract, skin procedure, breast biopsy, etc). Revised Cardiac Risk Index (RCRI): The patient has the following serious cardiovascular risks for perioperative complications: - No serious cardiac risks = 0 points RCRI Interpretation: 0 points: Class I (very low risk - 0.4% complication rate) Assessment & Plan The proposed surgical procedure is considered LOW risk. (Z01.818) Preop general physical exam (primary encounter diagnosis) Comment: Plan: CBC with platelets, Basic metabolic panel (E03.8) Other specified hypothyroidism Comment: Plan: levothyroxine (SYNTHROID/LEVOTHROID) 200 MCG tablet, TSH Risks and Recommendations: The patient has the following additional risks and recommendations for perioperative complications: - Morbid obesity (BMI >40) RECOMMENDATION: APPROVAL GIVEN to proceed with proposed procedure pending review of diagnostic evaluation. Signed Electronically by: Hawa Valderrama NP Copy of this evaluation report is provided to requesting physician. Preop [facility] Preop Guidelines Revised Cardiac Risk Index P REDEMPTION CLERK documented in this encounter Miscellaneous Notes Result Encounter Note - Marina Castro MD - 05/14/2020 1:41 PM CST Patient was notified of these results. Recommended new baseline mammogram in 9 months Marina Castro MD 05/18/2020 10:19 AM P REDEMPTION CLERK Op Note - Marina Castro MD - 05/14/2020 11:32 AM CST General Surgery Operative Note Pre-operative diagnosis: Right breast mass, subareolar Post-operative diagnosis: Same Procedure: Right seed-localized breast biopsy, areola Surgeon: Marina Castro MD Crime Laboratory Analyst(s): Ellie Tolliver PA-C The Physician Crime Laboratory Analyst was medically necessary for their expertise in prepping, camera management, suctioning, suturing and retraction. Anesthesia: General Estimated blood loss: 2 cc Specimens: ID Type Source Tests Collected by Time Destination A : RIGHT BREAST BIOPSY Tissue Breast, Right SURGICAL PATHOLOGY EXAM Marina Castro MD 05/14/2020 11:30 AM INDICATIONS: Right breast mass, areola. Percutaneous biopsy reveals a papilloma. DESCRIPTION OF PROCEDURE: The patient was placed on the table in supine position. Anesthetic was administered. The right breast was prepped and draped in standard sterile fashion. We used the seed placed in the Breast Center as well as the post-seed mammograms to localize the area of interest. After an esthetizing the skin we made an incision centered at the 3 o'clock position. We carried the incisiondown into the breast tissue and excised the area of interest, including the seed. The seed had been placed just superficial to the target lesion. Target lesion appears to be somewhat fragmented by the prior biopsy. A specimen mammogram was performed and sent via PACS to the Breast Center. The breast radiologist confirmed the presence of the area of interest including the seed and the clip which had been placed at the time of her biopsy. Hemostasis was maintained throughout with electrocautery. The cavity was checked and rechecked to assure both complete hemostasis and complete removal of the targetlesion. The deep dermis was closed with interrupted 3-0 Vicryl. The skin was closed with running 4-0Vicryl subcuticular suture and Steri-Strips. The patient tolerated the procedure well. Sponge and instrument counts were correct. Marina Castro MD P REDEMPTION CLERK documented in this encounter Plan of Treatment Not on filedocumented as of this encounter Procedures Procedure Name Priority Date/Time Associated Comments Diagnosis MA BREAST SPECIMEN Routine 05/14/2020 11:31 Papilloma of right Results for this RIGHT OR AM STAMP REDEMPTION CLERK breast procedure are i n the results section. SURGICAL PATHOLOGY Routine 05/14/2020 11:30 Resul ts for this EXAM AM STAMP REDEMPTION CLERK procedure are i n the results section. EKG 12-LEAD, TRACING Routine 05/14/2020 8:46 AM R esults for this ONLY STAMP REDEMPTION CLERK procedure are i n the results section. HCG QUALITATIVE URINE STAT 05/14/2020 7:05 AM Papilloma of breast Results for this STAMP REDEMPTION CLERK procedure are i n the results section. BIOPSY BREAST SEED Routine 05/14/2020 7:03 AM Papilloma of caroline ast LOCALIZATION STAMP REDEMPTION CLERK documented in this encounter Results MA Breast Specimen Right OR (05/14/2020 11:31 AM STAMP REDEMPTION CLERK) Anatomical Region Laterality Modality Breast Right Mammography Specimen (Source) Anatomical Location Collection Method / Collectio n Time Received Time / Laterality Volume Impressions 05/14/2020 11:33 AM STAMP REDEMPTION CLERK Impression: Specimen radiograph shows the target lesion, the radioactive seed and the marker placed a t the time of core biopsy. MOODY HAN MD Narrative 05/14/2020 11:33 AM STAMP REDEMPTION CLERK MA BREAST SPECIMEN RIGHT OR, 05/14/2020 11:31 AM History: Papilloma of right breast. Procedure Note Moody Han MD - 05/14/2020 MA BREAST SPECIMEN RIGHT OR, 05/14/2020 1 1:31 AM History: Papilloma of right breast. Impression: Specimen radiograph shows th e target lesion, the radioactive seed and the marker placed a t the time of core biopsy. MOODY HAN MD Marina Castro MD IMG MAMMOGRAPHY ORDERABLES Surgical pathology exam (05/14/2020 11:30 AM STAMP REDEMPTION CLERK) Component Value Ref Test Analysis Performed At [facility] Range Method Time Signature Copath Report Patient Name: ANNA REED MR#: [id number] Specimen #: [id number] Collected: 05/14/2020 Received: 05/14/2020 Reported: 05/17/2020 13:45 Ordering Phy(s): MARINA CASTRO For improved result formatting, select 'View Enhanced Report Format' under Linked Documents section. SPECIMEN(S): Breast mass, right FINAL DIAGNOSIS: Breast, right, radioactive seed localized excisional biopsy: - Changes of prior biopsy site. - Intraductal papilloma with florid epithelial hyperplasia. - Negative for atypia and malignancy. - Margins: See comment. COMMENT: The specimen was received fragmented and thus interfering wi th margin assessment. ??However, the tumor is affected by cautery artifact and consequently, we assume jeffry t it is extending to the margin. Electronically signed out by: Angelo Miller M.D. CLINICAL HISTORY: Papilloma of right breast. GROSS: The specimen is received in formalin labeled with the patien t's name, identifying information and designated right breast biopsy. ??It consists of two unoriented fragm ents of fibrofatty tissue, aggregating to 1.2 grams. ??The smaller fragment measures 0.6 cm and the larger fragment is 1.5 x 1.5 x 0.9 cm. ??The outer surface of each fragment is inked blue. ??Sectioning the larger frag ment reveals a 0.8 cm partially disrupted biopsy cavity. ??A discrete lesion isn't identified. ??Floating loo se within the container is a single radioactive seed and a coiled biopsy clip. ??This seed is retrieved and handl ed per protocol. ??The specimen is serially sectioned and submitted entirely in sequential order in 3 ocks. (Dictated by: MIGUELINA Tucker 05/14/2020 01:05 PM) MICROSCOPIC: Microscopic examination was performed. The technical component of this testing was completed at the [facility], with the professional compo nent performed at the [facility], [address] [place] [address] ??[phone] ([phone]) CPT Codes: A: 42794-YW9 COLLECTION SITE: Client: [facility] Location: [facility] (R) Specimen (Source) Anatomical Collection Method Collection Time Re ceived Time Location / / Volume Laterality Tissue specimen RIGHT BREAST 05/14/2020 11:30 (specimen) STRUCTURE / AM STAMP REDEMPTION CLERK Unknown Comment: 1 seed confirmed placement and collection via telephone conversation by Dr. Castro and Dr. Han at 1129. Marina Castro MD LAB - [facility] AP Performing Organization Address City/State/ZIP Code Phon e Number COPATH EKG 12-lead, tracing only (05/14/2020 8:46 AM STAMP REDEMPTION CLERK) Patholo gist Method Time Signature Interpretation ECG Click View RADIOLOGY Image link RESULTS to view waveform and result Specimen (Source) Anatomical Collection Method Collection Time Re ceived Time Location / / Volume Laterality 05/14/2020 8:46 AM STAMP REDEMPTION CLERK Rene Blank MD ECG ORDERABLES Performing Organization Address City/State/ZIP Code Phon e Number RADIOLOGY RESULTS HCG qualitative urine (05/14/2020 7:05 AM STAMP REDEMPTION CLERK) athologist Signature HCG Qual Urine Negative NEG^Negati 05/14/2020 [facility] 7:22 AM R [facility] Comment: This test is for screening purposes. ??R esults should be interpreted along with the clinical picture. ??Confirmation te sting is available if warranted by ordering [id number], HCG Quantitative Pregna ncy. Specimen Anatomical Collection Method Collection Time Receive d Time (Source) Location / / Volume Laterality Urine specimen URINE SPECIMEN / 05/14/2020 7:05 AM 7:13 (specimen) Unknown STAMP REDEMPTION CLERK AM STAMP REDEMPTION CLERK Rene Blank MD LAB - URINE ORDERABLES Performing Organization Address City/[facility] Phon e Number [place] [address] [place] [address] [facility] [address] [phone] documented in this encounter Visit Diagnoses Diagnosis Papilloma of breast - Primary Benign neoplasm of breast Papilloma of right breast documented in this encounter Admitting Diagnoses Diagnosis Papilloma of breast Benign neoplasm of breast documented in this encounter Administered Medications Inactive Administered Medications - up to 3 most recent administrations Medication Order MAR Action Action Date Dose Rate Site HYDROmorphone (PF) (DILAUDID) injection 0.3-0.5 mg 0.3-0.5 mg, Intravenous, EVERY 10 MIN PRN, other, acut e pain. May administer if Respiratory Rate is greater than 10, Starting on Sun at 1145, Max cumulative dose = 2 mg If fentaNYL (SUBL IMAZE) is also ordered, use HYDROmorphone (DILAUDID) if pain control insufficient with fentaNYL (SUMBLIMAZE) or a longer acting agent is needed. For ordered IV doses 0.1-4 mg give IV Push undiluted. Administer each 2mg over 2-5 minutes., PACU/Phase II lactated ringers infusion at 100 mL/hr, Intravenous, CONTINUOUS, Continue until IV catheter is weaned, PACU/Phase II, Starting on Sun05/14/20 at 1200, Until Sun05/14/20 at 1542 meperidine (DEMEROL) injection 12.5 mg 12.5 mg, Intravenous, EVERY 15 MIN PRN, post anesthesia shivering, Starting on Sun05/14/20 at 1145, For 2 doses, Give IV Pu sh undiluted. 10-40 mg over 2-3 minutes, up to 125 mg over 3-15 minutes, PACU/Phase II naloxone (NARCAN) injection 0.2 mg 0.2 mg, Intravenous, EVERY 2 MIN PRN, op ioid reversal, Starting on Sun05/14/20 at 1145, For 24 hours, Administer intraveno us route when available and notify provider when administered. For unintended sedati on or respiratory depression if all of the below criteria are met: ~ respiratory ra te LESS than or EQUAL to 8. ~SaO2 less than 92% and or/end-tidal CO2 is greater than 50. ~ the patient is receiving an opioid, has unintended sedations assessed as AYAKA S (-3), and is currently not on mechanical ventilation. RASS scale moderate (-3) is movement or eye opening to voice but no eye contact. Patient Monitoring Once the patient has demonstrated a response to the naloxone, continue to monitor respiratory rate, depth, oxygen saturation and end-tidal CO2 (if available) every 15 mi nutes x 2, then every 30 minutes x 2, then every 1 hour x 1 after each naloxone dose. Consider tr ansfer to ICU if patient respiratory parameters have not improved after 4 nalox one doses. For ordered IV doses 0.1-2mg give IVP. Give each 0.4mg over 15 seconds in emergency situations. For non-emergent situations further dilu te in 9mL of NS to facilitate titration of response., PACU/Phase II naloxone (NARCAN) injection 0.2 mg 0.2 mg, Intramuscular, EVERY 2 MIN PRN, opioid reversal, Starting on Sun05/14/20 at 1145, For 24 hours, Administer intramuscular if an int ravenous route is not available and notify provider when administered. For u nintended sedation or respiratory depression if all of the below criteria ar e met: ~ respiratory rate LESS than or EQUAL to 8. ~SaO2 less than 92% and or/end-tidal CO2 is greater than 50. ~ the patient is receiving an opioid , has unintended sedations assessed as RASS (-3), and is currently not on mechanical ventilation. RASS scale moderate (-3) is movement or eye opening to voice but no eye contact. Patient Monitoring Once the patient has demonstrated a response to the naloxone, c ontinue to monitor respiratory rate, depth, oxygen saturati on and end-tidal CO2 (if available) every 15 minutes x 2, then every 30 minutes x 2, then every 1 hour x 1 after each naloxone dose. Consider transfer to ICU if patient respiratory parameters have not improved after 4 naloxone doses. For ord ered IV doses 0.1-2mg give IVP. Give each 0.4mg over 15 seconds in emergency situa tions. For non-emergent situations further dilute in 9mL of NS to facilitate titration of respons e., PACU/Phase II naloxone (NARCAN) injection 0.4 mg 0.4 mg, Intravenous, EVERY 2 MIN PRN, op ioid reversal, Starting on Sun05/14/20 at 1145, For 24 hours, Administer intraveno us route when available and notify provider when administered. For unintended sedati on or respiratory depression if all of the below criteria are met: ~ respiratory rate LESS than o r EQUAL to 8. ~ SaO2 less than 92% and or/end-tidal CO2 is greater than 50. ~ th e patient is receiving an opioid, has unintended sedation assessed as RASS (-4) or (-5) and patient is currently not on mechanical ventilation. RASS scale (-4) is deep sedation with no response to voice but movement or eye op ening to physical stimulation. RASS scale (-5) is unarousable. Patient Monitoring Once the patie nt has demonstrated a response to the naloxone, continue to monitor respirat ory rate, depth, oxygen saturation and end-tidal CO2 (if available) every 15 m inutes x 2, then every 30 minutes x 2, then every 1 hour x 1 after each naloxone dose. Consider transfer to ICU if patient respiratory parameters khan ve not improved after 4 naloxone doses. For ordered IV doses 0.1-2mg give IVP. Give each 0.4mg ove r 15 seconds in emergency situations. For non-emergent situations further dilute in 9mL of NS to facilitate titration of response., PACU/Phase II naloxone (NARCAN) injection 0.4 mg 0.4 mg, Intramuscular, EVERY 2 MIN PRN, opioid reversal, Starting on Sun05/14/20 at 1145, For 24 hours, Administer intramuscular if an int ravenous route is not available and notify provider when administered. For u nintended sedation or respiratory depression if all of the below criteria ar e met: ~ respiratory rate LESS than or EQUAL to 8. ~ SaO2 less jeffry n 92% and or/end-tidal CO2 is greater than 50. ~ the patient is receiving an opioid , has unintended sedation assessed as RASS (-4) or (-5) and patient is currently not on mechanica l ventilation. RASS scale (-4) is deep sedation with no response to voice but mo vement or eye opening to physical stimulation. RASS scale (-5) is unarousable. Patient Monitoring Once the patient has demonstrated a response to the naloxone, c ontinue to monitor respiratory rate, depth, oxygen saturati on and end-tidal CO2 (if available) every 15 minutes x 2, then every 30 minutes x 2, then every 1 hour x 1 after each naloxone dose. Consider transfer to ICU if patient respiratory parameters have not improved after 4 naloxone doses. For ord ered IV doses 0.1-2mg give IVP. Give each 0.4mg over 15 seconds in emergency situa tions. For non-emergent situations further dilute in 9mL of NS to facilitate titration of respons e., PACU/Phase II ondansetron (ZOFRAN) injection 4 mg 4 mg, Intravenous, EVERY 30 MIN PRN, ghulam sea, vomiting, Administer over 2-5 Minutes, Starting on Sun05/14/20 at 1145, For 2 d oses, MAX total dose = 8 mg, including OR dosing. This is step 1 of nausea and vomiting manageme nt. If not resolved in 15 minutes, then go to step 2 [prochlorpera zine (COMPAZINE) if ordered]. Irritant. For ordered IV doses 0.1-4 mg, give IV Push undiluted over 2-5 minutes., PACU/Phase II ondansetron (ZOFRAN-ODT) ODT tab 4 mg 4 mg, Oral, EVERY 30 MIN PRN, nausea, vo miting, Starting on Sun05/14/20 at 1145, For 2 doses, MAX total dose = 8 mg, incl uding OR dosing. This is step 1 of nausea and vomiting management. If not resolved in 15 minutes , then go to step 2 [prochlorperazine (COMPAZINE) if ordered ]. With dry hands, peel back foil backing and gently remove tablet. Do not push oral disintegrat ing tablet through foil backing. Administer immediately on tongu e and oral disintegrating tablet dissolves in seconds, then swallow with saliva. Liquid not requi red., PACU/Phase II ORAL Pain Medications - may administer a s ordered by surgeon for take home use CONTINUOUS PRN, Starting on Sun05/14/20 at 1145, Until Sun05/14/20 at 1542, May administer oral pain medications as ordered by surgeon for take home use. Discontinue IV pain medication prior to administration of oral pain medication., PACU/Phase II prochlorperazine (COMPAZINE) injection 1 0 mg Given 05/14/2020 11:54 AM STAMP REDEMPTION CLERK 10 mg 10 mg, Intravenous, EVERY 6 HOURS PRN, nausea, vomiting, Administer over 1-2 Minutes, Starting on Sun05/14/20 at 1145, This is Step 2 of nausea and vomiting management. If nausea not resolved in 15 minutes, Notify provider. For ordered IV doses 0.1-10 mg, give IV push undiluted, each 5 mg over 1 minute., PACU/Phase II documented in this encounter Active and Recently Administered Medications Times are shown in STAMP REDEMPTION CLERK. Scheduled Medication Order 05/12/2020 05/13/2020 05/14/2020 acetaminophen (TYLENOL) tablet 975 mg 1200 (Canceled Entry - Provider: Orders Generic Provider - Comment: Automatically canceled at discontinue of medication order) 975 mg, Oral, ONCE, Sun05/14/20 at 1200, For 1 dose, Maximum acetaminophen dose from all sources = 75 mg/kg/day not to exceed 4 grams/day., PACU/Phase II bupivacaine 0.25 % - EPINEPHrine 1:200,000 (PF) injection 0-75 m g (COMPLETED) 1030 (Due)1132 (Given - Provider: Marina Castro MD) 0-75 mg (0-30 mL), Intradermal, ONCE, Fr i 05/14/20 at 1030, For 1 dose, Intra-procedure clindamycin (CLEOCIN) infusion 900 mg (CANCELED) 0730 (Canceled Entry - Provider: Orders Generic Provider - Comment: Automatically canceled at discontinue of medication order)1046 (Given - Provider: Kwesi Blank APRN CRNA) Routine, 900 mg, Intravenous, EVERY 8 HO URS, First dose on Sun05/14/20 at 0730, Indications: Perioperative Pharmacoprophylaxis, Pre-procedure Continuous Medication Order 05/12/2020 05/13/2020 05/14/2020 lactated ringers infusion (CANCELED) 1030 (New Bag - Provider: Kwesi Blank APRN CRNA) at 25 mL/hr, Intravenous, CONTINUOUS, IF patient NOT on dialysis., Pre- procedure, Starting Sun05/14/20 at 0730, Until Sun05/14/20 at 1141 lactated ringers infusion 1200 ( Canceled Entry - Provider: Orders Generic Provider - Comment: Automatically canceled at discontinue of medication order) at 100 mL/hr, Intravenous, CONTINUOUS, C ontinue until IV catheter is weaned, PACU/Phase II, Starting Sun05/14/20 at 1200, Until Sun05/14/20 at 1542 PRN Medication Order 05/12/2020 05/13/2020 05/14/2020 HYDROmorphone (PF) (DILAUDID) injection 0.3-0.5 mg 0.3-0.5 mg, Intravenous, EVERY 10 MIN AZ N, other, acute pain. May administer if Respiratory Rate is greater than 10, Starting Sun05/14/20 at 1145, Max cumulative dose = 2 mg If fentaNYL (SUBLIMAZE) is a lso ordered, use HYDROmorphone (DILAUDID ) if pain control insufficient with fentaNYL (SUMBLIMAZE) or a longer acting agent is needed. For ordered IV doses 0.1-4 mg give IV Push undiluted. Administer each 2mg over 2-5 minutes., PACU/Phase II meperidine (DEMEROL) injection 12.5 mg 12.5 mg, Intravenous, EVERY 15 MIN PRN, post anesthesia shivering, Starting Sun05/14/20 at 1145, For 2 doses, Give IV Push undiluted. 10-40 mg over 2-3 minutes, up to 125 mg over 3-15 minutes, PACU/Phase II naloxone (NARCAN) injection 0.2 mg 0.2 mg, Intravenous, EVERY 2 MIN PRN, op ioid reversal, Starting Sun05/14/20 at 1145, For 24 hours, Administer intravenous route when available and notify provider when administered. For unintended sedat ion or respiratory depression if all of the below criteria are met: ~ respiratory rate LESS than or EQUAL to 8. ~SaO2 less than 92% and or/end-tidal CO2 is greater than 50. ~ the patient is receiving an opioid, has unintended sedations assess ed as RASS (-3), and is currently not on mechanical ventilation. RASS scale moderate (-3) is movement or eye opening to voice but no eye contact. Patient Monitori ng Once the patient has demonstrated a r esponse to the naloxone, continue to monitor respiratory rate, depth, oxygen saturation and end-tidal CO2 (if available) every 15 minutes x 2, then every 30 minut es x 2, then every 1 hour x 1 after each naloxone dose. Consider transfer to ICU if patient respiratory parameters have not improved after 4 naloxone doses. For ordered IV doses 0.1-2mg give IVP. Give e ach 0.4mg over 15 seconds in emergency s ituations. For non-emergent situations further dilute in 9mL of NS to facilitate titration of response., PACU/Phase II naloxone (NARCAN) injection 0.2 mg 0.2 mg, Intramuscular, EVERY 2 MIN PRN, opioid reversal, Starting Sun05/14/20 at 1145, For 24 hours, Administer intramuscular if an intravenous route is not available and notify provider when administer ed. For unintended sedation or respirato ry depression if all of the below criteria are met: ~ respiratory rate LESS than or EQUAL to 8. ~SaO2 less than 92% and or/end-tidal CO2 is greater than 50. ~ the patient is receiving an opioid, has uni ntended sedations assessed as RASS (-3), and is currently not on mechanical ventilation. RASS scale moderate (-3) is movement or eye opening to voice but no eye c ontact. Patient Monitoring Once the naveen ent has demonstrated a response to the naloxone, continue to monitor respiratory rate, depth, oxygen saturation and end-tidal CO2 (if available) every 15 minutes x 2, then every 30 minutes x 2, then katheryn ry 1 hour x 1 after each naloxone dose. Consider transfer to ICU if patient respiratory parameters have not improved after 4 naloxone doses. For ordered IV doses 0.1-2mg give IVP. Give each 0.4mg over 1 5 seconds in emergency situations. For non-emergent situations further dilute in 9mL of NS to facilitate titration of response., PACU/Phase II naloxone (NARCAN) injection 0.4 mg 0.4 mg, Intravenous, EVERY 2 MIN PRN, op ioid reversal, Starting Sun05/14/20 at 1145, For 24 hours, Administer intravenous route when available and notify provider when administered. For unintended sedat ion or respiratory depression if all of the below criteria are met: ~ respiratory rate LESS than or EQUAL to 8. ~ SaO2 less than 92% and or/end-tidal CO2 is greater than 50. ~ the patient is receiving a n opioid, has unintended sedation assess ed as RASS (-4) or (-5) and patient is currently not on mechanical ventilation. RASS scale (-4) is deep sedation with no response to voice but movement or eye ope swathi to physical stimulation. RASS scale (-5) is unarousable. Patient Monitoring Once the patient has demonstrated a response to the naloxone, continue to monitor respiratory rate, depth, oxygen saturat ion and end-tidal CO2 (if available) katheryn ry 15 minutes x 2, then every 30 minutes x 2, then every 1 hour x 1 after each naloxone dose. Consider transfer to ICU if patient respiratory parameters have not improved after 4 naloxone doses. For ord ered IV doses 0.1-2mg give IVP. Give each 0.4mg over 15 seconds in emergency situations. For non-emergent situations further dilute in 9mL of NS to facilitate titration of response., PACU/Phase II naloxone (NARCAN) injection 0.4 mg 0.4 mg, Intramuscular, EVERY 2 MIN PRN, opioid reversal, Starting Sun05/14/20 at 1145, For 24 hours, Administer intramuscular if an intravenous route is not available and notify provider when administer ed. For unintended sedation or respirato ry depression if all of the below criteria are met: ~ respiratory rate LESS than or EQUAL to 8. ~ SaO2 less than 92% and or/end-tidal CO2 is greater than 50. ~ th e patient is receiving an opioid, has un intended sedation assessed as RASS (-4) or (-5) and patient is currently not on mechanical ventilation. RASS scale (-4) is deep sedation with no response to voice but movement or eye opening to physical stimulation. RASS scale (-5) is unarousable. Patient Monitoring Once the patient has demonstrated a response to the naloxone, continue to monitor respiratory rat e, depth, oxygen saturation and end-tida l CO2 (if available) every 15 minutes x 2, then every 30 minutes x 2, then every 1 hour x 1 after each naloxone dose. Consider transfer to ICU if patient respirat ory parameters have not improved after 4 naloxone doses. For ordered IV doses 0.1-2mg give IVP. Give each 0.4mg over 15 seconds in emergency situations. For non-emergent situations further dilute in 9mL of NS to facilitate titration of response., PACU/Phase II ondansetron (ZOFRAN) injection 4 mg(Linked Group 1) 4 mg, Intravenous, EVERY 30 MIN PRN, ghulam sea, vomiting, Administer over 2-5 Minutes, Starting Sun05/14/20 at 1145, For 2 doses, MAX total dose = 8 mg, including OR dosing. This is step 1 of nausea and vo miting management. If not resolved in 15 minutes, then go to step 2 [prochlorperazine (COMPAZINE) if ordered]. Irritant. For ordered IV doses 0.1-4 mg, give IV Push undiluted over 2-5 minutes., PACU/Phase II ondansetron (ZOFRAN-ODT) ODT tab 4 mg(Linked Group 1) 4 mg, Oral, EVERY 30 MIN PRN, nausea, vo miting, Starting Sun05/14/20 at 1145, For 2 doses, MAX total dose = 8 mg, including OR dosing. This is step 1 of nausea and vomiting management. If not resolved i n 15 minutes, then go to step 2 [prochlo rperazine (COMPAZINE) if ordered]. With dry hands, peel back foil backing and gently remove tablet. Do not push oral disintegrating tablet through foil backing. A dminister immediately on tongue and oral disintegrating tablet dissolves in seconds, then swallow with saliva. Liquid not required., PACU/Phase II ORAL Pain Medications - may administer as ordered by surgeon for take home use CONTINUOUS PRN, Starting Sun05/14/20 at 1145, Until Sun05/14/20 at 1542, May administer oral pain medications as ordered by surgeon for take home use. Discontinue IV pain medication prior to administration of oral pain medication., PACU/Phase II oxyCODONE (ROXICODONE) tablet 5 mg 5 mg, Oral, ONCE PRN, other, pain contro l or improvement in physical function.??, Starting Sun05/14/20 at 1145, For 1 dose, Notify provider to assess for uncontrolled pain or analgesic side effects., Post-procedure prochlorperazine (COMPAZINE) injection 10 mg 1154 (Given - Provider: Agnes Parada RN) 10 mg, Intravenous, EVERY 6 HOURS PRN, n ausea, vomiting, Administer over 1-2 Minutes, Starting Sun05/14/20 at 1145, This is Step 2 of nausea and vomiting management. If nausea not resolved in 15 minutes , Notify provider. For ordered IV doses 0.1-10 mg, give IV push undiluted, each 5 mg over 1 minute., PACU/Phase II Linked Groups Order Group 1: ondansetron (ZOFRAN-ODT) ODT tab 4 mgJump to med 4 mg, Oral, EVERY 30 MIN PRN, nausea, vo miting, Starting Sun05/14/20 at 1145, For 2 doses
MAX total dose = 8 mg, including OR dosing. This is step 1 of nausea and vomiting management. If not resolved in 15 minutes, the n go to step 2 [prochlorperazine (COMPAZINE) if ordered]. With dry hands, peel back foil backing and gently remove tablet. Do not push oral disintegr ating tablet through foil backing. Admin ister immediately on tongue and oral disintegrating tablet dissolves in seconds, then swallow with saliva. Liquid not required.
PACU/Phase II Or ondansetron (ZOFRAN) injection 4 mgJump to med 4 mg, Intravenous, EVERY 30 MIN PRN, ghulam sea, vomiting, Administer over 2-5 Minutes, Starting 05/14/20 at 1145, For 2 doses
MAX total dose = 8 mg, including OR dosing. This is step 1 of nause a and vomiting management. If not resolved in 15 minutes, then go to step 2 [prochlorperazine (COMPAZINE) if ordered]. Irritant. For ordered IV doses 0.1-4 mg, give IV Push undiluted over 2-5 minutes.
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
--- OUTSIDE RECORDS SUMMARY | 2022-02-13 09:56 | XMS_ITS | Encounter Summary ---
:1985 Author Organization [facility] Address [address] [place] [address] Care Team Providers Name Role Phone No Ref-Primary, Physician Primary Care Provider [phone] Hawa Valderrama NP Unavailable Jomar Castro MD Unavailable Encounter Details Date Type Department Care Team Description 05/11/2020 [facility] Only [facility] angelic for screening [facility] for other viral diseases [address] [place] [address] Social History Tobacco Use Types Packs/Day Years [...] been in contact with No / Unsure 05/11/2020 9:24 AM AMERICAN SIGN LANGUAGE INTERPRETER someone who was confirmed or suspected to have Coronavirus / COVID-19? documented as of this encounter Plan of Treatment Not on filedocumented as of this encounter Procedures Procedure Name Priority Date/Time Associated Diagnosis Comme nts SARS-COV-2 Routine 05/11/2020 2:57 PM Encounter for Results for this (COVID-19) VIRUS AMERICAN SIGN LANGUAGE INTERPRETER screening for other proc edure are in RT-PCR viral diseases the results section. COVID-19 VIRUS Routine 05/11/2020 2:57 PM Encounter for Result s for this (CORONAVIRUS) BY AMERICAN SIGN LANGUAGE INTERPRETER screening for other proc edure are in PCR viral diseases the results section. documented in this encounter Results SARS-CoV-2 COVID-19 Virus (Coronavirus) by PCR (05/11/2020 2:57 PM AMERICAN SIGN LANGUAGE INTERPRETER) [facility] Method Time Signature SARS-CoV-2 Nasopharyngeal 05/12/2020 INFECTIOUS Virus 2:06 PM AMERICAN SIGN LANGUAGE INTERPRETER DISEASES Specimen DIAGNOSTIC Source LABORATORY, [facility] SARS-CoV-2 NEGATIVE 05/12/2020 INFECTIOUS PCR Result 2:06 PM AMERICAN SIGN LANGUAGE INTERPRETER DISEASES DIAGNOSTIC LABORATORY, [facility] Comment: SARS-CoV2 (COVID-19) RNA not de tected, presumed negative. SARS-CoV-2 PCR Testing was 05/12/2020 2:06 PM INFE CTIOUS DISEASES Comment performed using the AMERICAN SIGN LANGUAGE INTERPRETER DIAGNOSTIC zoe SARS-CoV-2 LABORATORY, [facility] assay on the zoe 6800 System.2 Comment: This test should be ordered for the dete ction of SARS-CoV-2 in individuals who meet SARS-CoV-2 clinical and/or epidemi ological criteria. Test performance is unknown in asymptomatic patients. This test is for in vitro diagnostic use under the FDA EUA for laboratories certified under CLIA to perform high and /or moderate complexity testing. This test has not been FDA cleared or approve d. A negative result does not rule out the presence of PCR inhibitors in the specimen or target RNA in concentration below the limit of detection for the assay. The possibility of a false negati ve should be considered if the patient's recent exposure or clinical pr esentation suggests COVID-19. This test was validated by the [facility] Infectious Diseases Diagnostic Laboratory. This laboratory i s certified under the Clinical Laboratory Improvement Amendments of 198 8 (CLIA-88) as qualified to perform high and/or moderate complexity laborato ry testing. Specimen (Source) Anatomical Collection Method Collection Time Re ceived Time Location / / Volume Laterality Specimen from 05/11/2020 2:57 05/11/2020 nasopharyngeal PM AMERICAN SIGN LANGUAGE INTERPRETER 3:02 PM AMERICAN SIGN LANGUAGE INTERPRETER structure (specimen) Jomar Castro MD LAB - MICRO GENERAL ORDERABL ES Performing Organization Address City/State/ZIP Code Phon e Number INFECTIOUS DISEASES DIAGNOSTIC [address] [facility] [address] LABORATORY, [facility] Asymptomatic COVID-19 Virus (Coronavirus) by PCR (05/11/2020 2:57 PM AMERICAN SIGN LANGUAGE INTERPRETER) Component Value Ref Test Analysis Performed At Patholo gist Range Method Time Signature COVID-19 Nasopharyngeal 05/11/2020 JENNERS Virus PCR to 3:02 PM AMERICAN SIGN LANGUAGE INTERPRETER CLINICS [facility] Source COVID-19 Test received-See 05/11/2020 INFECTIOUS Virus PCR to reflex to IDDL 6:42 PM AMERICAN SIGN LANGUAGE INTERPRETER DISEASES [facility] [place] - test SARS CoV2 DIAGNOSTIC Result (COVID-19) Virus LABORATORY, RT-PCR [facility] Specimen (Source) Anatomical Collection Method Collection Time Re ceived Time Location / / Volume Laterality Specimen from 05/11/2020 2:57 05/11/2020 nasopharyngeal PM AMERICAN SIGN LANGUAGE INTERPRETER 3:02 PM AMERICAN SIGN LANGUAGE INTERPRETER structure (specimen) Jomar Castro MD LAB - MICRO GENERAL ORDERABL ES Performing Organization Address City/State/ZIP Code Phon e Number INFECTIOUS DISEASES [address] [place] [address] DIAGNOSTIC LABORATORY, [facility] [address] [place], [place] [address] [address] documented in this encounter Visit Diagnoses Diagnosis Encounter for screening for other viral diseases documented in this encounter Care Teams Family Day Care Provider Relationship Specialty Start Date End Date No Ref-Primary, Physician PCP - General 04/01/20 Hawa Valderrama NP Assigned PCP 03/25/20 [address] [place] [address] Jomar Castro MD Assigned Surgical Provider 04/04/20 7 [address] [address] documented as of this encounter
--- OUTSIDE RECORDS SUMMARY | 2022-02-13 09:56 | XMS_ITS | Encounter Summary ---
:1985 Author Organization [facility] Address [address] [place] [address] Care Team Providers Name Role Phone No Ref-Primary, Physician Primary Care Provider Hawa Valderrama NP Unavailable Marina Castro MD [...] LOCALIZED EXCISIONAL BIOPSY [address] [place], [place] [address] Phone: Fax: Referral ID Status Reason Start Date Expiration Date Visits Requ ested Visits Authorized [id number] 1 1 Encounter Details Date Type Department Care Team Description 05/14/2020 Surgery [facility] Marina Castro MD RIGHT BREAST SEED [facility] [address] LOCALIZED EXCISIONAL [address] [place], [place] [address] [phone] Surgery Details Date/Time Status Location OR Service Patient Case Class Case Type Trauma Class Case? 05/14/20 9:50 Posted [facility] OR OR 06 General Same Day AM Surgery Panel 1 Procedure LRB Anes Op Region Wound Class Commen ts RIGHT BREAST SEED LOCALIZED EXCISIONAL Right General Breast I-Clean BIOPSY Surgeon Surgeon Role Service Panel Marina Castro MD Primary General 1 Ellie Tolliver PA-C Assisting Manager Mountain Authoriz ation 1 Special Needs 5ft7in, 247 lb stated documented in this encounter Social History Tobacco Use Types Packs/Day Years [...] with No / Unsure 05/14/2020 6:57 AM FABRICATION SUPERVISOR someone who was confirmed or suspected to have Coronavirus / COVID-19? documented as of this encounter Last Filed Vital Signs Vital Sign Reading Time Taken Comments Blood Pressure 121/87 05/14/2020 7:14 AM FABRICATION SUPERVISOR Pulse 74 05/14/2020 7:14 AM FABRICATION SUPERVISOR Temperature 36.8 ??C (98.3 ??F) 05/14/2020 7:14 AM FABRICATION SUPERVISOR Respiratory Rate 20 05/14/2020 7:14 AM FABRICATION SUPERVISOR Oxygen Saturation 98% 05/14/2020 7:14 AM FABRICATION SUPERVISOR Inhaled Oxygen Concentration - - Weight 122 kg (268 lb 14.4 oz) 05/14/2020 7:14 AM FABRICATION SUPERVISOR Height 170.2 cm (5' 7) 05/14/2020 7:14 AM FABRICATION SUPERVISOR Body Mass Index 42.12 05/14/2020 7:14 AM FABRICATION SUPERVISOR documented in this encounter Discharge Instructions Discharge Agnes James RN - 05/14/2020 11:49 AM CST HOME CARE FOLLOWING BREAST BIOPSY Myrtle Pop, Princess Mccarty, RKim Singh???Josue Anton RESULTS: You will receive a phone [...] 1-3 weeks after surgery. Expect gradual improvement. Qpab-bwe-aetuqqq anti-inflammatory medications (i.e. Ibuprofen/Advil/Motrin or Naprosyn/Aleve) may [...] to be seen, please call us at [phone]. We are located at: [address] [facility], [address]; [place] [address] -CONTACT US IF THE FOLLOWING DEVELOPS: 1. [...] Walk around frequently. You may consider an chrv-rws-zibggkn stool-softener. Your Pharmacist can assist you with [...] to discuss with the nurse or physician event sales assistant. # There is a surgeon CARTRIDGE FILLER on weekday evenings and over the weekend [...] STILL NOT ABLE TO URINATE (PASS WATER). ICATION SUPERVISOR documented in this encounter Medications at Time [...] the patient. There are no significant changes ICATION SUPERVISOR Source Note - Hawa Valderrama, KEN - 04/19/2020 3:40 PM FABRICATION SUPERVISOR [place] [address] [address] [facility] [address] Primary Provider: No Ref-Primary, Physician PREOPERATIVE EVALUATION: Today's date: 04/19/2020 Anna Reed is a 34 year old female who presents for a preoperative evaluation. Surgical Information: Surgery/Procedure: Right breast seed localized excisional biopsy Surgery Location: [facility] Surgeon: Dr. Marina Castro Surgery Date: 05/14/20 Time of Surgery: 10 AM Where patient plans to recover: At home with family Fax number for surgical facility: Note does not need to be faxed, will be available electronically in CTQuan. Type of Anesthesia Anticipated: General Subjective HPI [...] declined at this time. Preoperative Review of MIRROR SILVERER: MIRROR SILVERER reviewed - no record of controlled substances [...] Medium Added automatically from request for surgery [id number] ??? Morbid obesity (H) 04/01/2020 Priority: Medium [...] NA, POTASSIUM, CR, A1C in the last 11192 hours. Diagnostics: No EKG required for low [...] report is provided to requesting physician. Preop [facility] Preop Guidelines Revised Cardiac Risk Index ICATION SUPERVISOR documented in this encounter Miscellaneous Notes Result Encounter Note - Marina Castro MD - 05/14/2020 1:41 PM CST Patient was notified of these results. Recommended new baseline mammogram in 9 months Marina Castro MD 05/18/2020 10:19 AM ICATION SUPERVISOR Op Note - Marina Castro MD - 05/14/2020 11:32 AM CST General Surgery Operative Note Pre-operative diagnosis: Right breast mass, subareolar Post-operative diagnosis: Same Procedure: Right seed-localized breast biopsy, areola Surgeon: Marina Castro MD Manager Mountain(s): Ellie Tolliver PA-C The Physician Manager Mountain was medically necessary for their expertise in [...] instrument counts were correct. Marina Castro MD ICATION SUPERVISOR documented in this encounter Plan of Treatment Not on filedocumented as of this encounter Procedures Procedure Name Priority Date/Time Associated Comments Diagnosis MA BREAST SPECIMEN Routine 05/14/2020 11:31 Papilloma of right Results for this RIGHT OR AM FABRICATION SUPERVISOR breast procedure are i n the results section. SURGICAL PATHOLOGY Routine 05/14/2020 11:30 Resul ts for this EXAM AM FABRICATION SUPERVISOR procedure are i n the results section. EKG 12-LEAD, TRACING Routine 05/14/2020 8:46 AM R esults for this ONLY FABRICATION SUPERVISOR procedure are i n the results section. HCG QUALITATIVE URINE STAT 05/14/2020 7:05 AM Papilloma of breast Results for this FABRICATION SUPERVISOR procedure are i n the results section. BIOPSY BREAST SEED Routine 05/14/2020 7:03 AM Papilloma of caroline ast LOCALIZATION FABRICATION SUPERVISOR documented in this encounter Results MA Breast Specimen Right OR (05/14/2020 11:31 AM FABRICATION SUPERVISOR) Anatomical Region Laterality Modality Breast Right Mammography Specimen (Source) Anatomical Location Collection Method / Collectio n Time Received Time / Laterality Volume Impressions 05/14/2020 11:33 AM FABRICATION SUPERVISOR Impression: Specimen radiograph shows the target lesion, the radioactive seed and the marker placed a t the time of core biopsy. MOODY HAN MD Narrative 05/14/2020 11:33 AM FABRICATION SUPERVISOR MA BREAST SPECIMEN RIGHT OR, 05/14/2020 11:31 [...] ORDERABLES Surgical pathology exam (05/14/2020 11:30 AM FABRICATION SUPERVISOR) Component Value Ref Test Analysis Performed At [facility] Range Method Time Signature Copath Report Patient Name: ANNA REED MR#: [id number] Specimen #: [id number] Collected: 05/14/2020 Received: 05/14/2020 Reported: 05/17/2020 13:45 [...] of this testing was completed at the [facility], with the professional compo nent performed at the [facility], [address] [place] [address] ??[phone] ([phone]) CPT Codes: A: 99815-DG2 COLLECTION SITE: Client: [facility] Location: [facility]OR (R) Specimen (Source) Anatomical Collection Method Collection Time Re ceived Time Location / / Volume Laterality Tissue specimen RIGHT BREAST 05/14/2020 11:30 (specimen) STRUCTURE / AM FABRICATION SUPERVISOR Unknown Comment: 1 seed confirmed placement and collection via telephone conversation by Dr. Castro and Dr. Han at 1129. Marina Castro MD LAB - BEAKER AP Performing Organization Address City/State/ZIP Code Phon e Number COPATH EKG 12-lead, tracing only (05/14/2020 8:46 AM FABRICATION SUPERVISOR) [facility] gist Method Time Signature Interpretation ECG Click View RADIOLOGY Image link RESULTS to view waveform and result Specimen (Source) Anatomical Collection Method Collection Time Re ceived Time Location / / Volume Laterality 05/14/2020 8:46 AM FABRICATION SUPERVISOR Rene Blank MD ECG ORDERABLES Performing Organization Address City/[facility]/ZIP [facility] Phon e Number RADIOLOGY RESULTS HCG qualitative urine (05/14/2020 7:05 AM FABRICATION SUPERVISOR) athologist Signature HCG Qual Urine Negative NEG^Negati 05/14/2020 [facility] 7:22 AM [facility] Comment: This test is for screening purposes. ??R esults should be interpreted along with the clinical picture. ??Confirmation te sting is available if warranted by ordering [id number], HCG Quantitative Pregna ncy. Specimen Anatomical Collection Method Collection Time Receive d Time (Source) Location / / Volume Laterality Urine specimen URINE SPECIMEN / 05/14/2020 7:05 AM 7:13 (specimen) Unknown FABRICATION SUPERVISOR AM FABRICATION SUPERVISOR Rene Blank MD LAB - URINE ORDERABLES Performing Organization Address City/[facility]/ZIP [facility] Phon e Number [facility] [address] [place], [place] [address] [facility] [address] [phone] documented in this encounter Visit Diagnoses Diagnosis Papilloma of breast - Primary Benign neoplasm of breast Papilloma of right breast Papilloma of breast Benign neoplasm of breast documented in this encounter Admitting Diagnoses Diagnosis Papilloma of breast Benign neoplasm of breast documented in this encounter Administered Medications Inactive Administered Medications - up to 3 most recent administrations Medication Order MAR Action Action Date Dose Rate Site bupivacaine 0.25 % - Given 05/14/2020 11:32 15 mLs Operative EPINEPHrine 1:200,000 AM FABRICATION SUPERVISOR Sit e/Surgical Site (PF) injection 0-75 mg 0-75 mg (0-30 mL), Intradermal, ONCE, On Sun05/14/20 at 1030, For 1 dose, Intra-procedure HYDROmorphone (PF) (DILAUDID) injection 0.3-0.5 mg 0.3-0.5 [...] 1 0 mg Given 05/14/2020 11:54 AM FABRICATION SUPERVISOR 10 mg 10 mg, Intravenous, EVERY 6 [...] Recently Administered Medications Times are shown in FABRICATION SUPERVISOR. Scheduled Medication Order 05/12/2020 05/13/2020 05/14/2020 acetaminophen [...] mg 0.3-0.5 mg, Intravenous, EVERY 10 MIN NV N, other, acute pain. May administer if [...] Minutes, Starting Sun05/14/20 at 1145, For 2 doses
MAX total dose = 8 mg, including OR dosing. This is step 1 of nause a and vomiting management. If not resolved in 15 minutes, then go to step 2 [prochlorperazine (COMPAZINE) if ordered]. Irritant. For ordered IV doses 0.1-4 mg, give IV Push undiluted over 2-5 minutes.
PACU/Phase II documented in this encounter Care Teams Packing Machine Tender Relationship Specialty Start Date End Date No Ref-Primary, Physician PCP - General 04/01/20 Hawa Valderrama, KEN Assigned PCP 03/25/20 [address] [place], [place] [address] Marina Castro MD Assigned Surgical Provider 04/04/20 2 [address] [place] [address] documented as of this encounter
--- OUTSIDE RECORDS SUMMARY | 2022-02-13 09:56 | XMS_ITS | Encounter Summary ---
:1985 Author Organization [facility] Address [address] [place] [address] Care Team Providers Name Role Phone No Ref-Primary, Physician Primary Care Provider [phone] Hawa Valderrama MEDICAL CODING MANAGER Unavailable Jomar Castro MD Unavailable Encounter Details Date Type Department Care Team Description 05/14/2020 Travel Social History Tobacco Use Types Packs/Day Years [...] with No / Unsure 05/14/2020 6:57 AM LINE COOK someone who was confirmed or suspected to have Coronavirus / COVID-19? documented as of this encounter Plan of Treatment Not on filedocumented as of this encounter Visit Diagnoses Not on filedocumented in this encounter Care Teams Culture Room Worker Relationship Specialty Start Date End Date No Ref-Primary, Physician PCP - General 04/01/20 Hawa Valderrama, KEN Assigned PCP 03/25/20 [address] [place] [place], [place] [address] Jomar Castro MD Assigned Surgical Provider 04/04/20 2 [address] [facility] [address] [place], [place] [address] documented as of this encounter
--- OUTSIDE RECORDS SUMMARY | 2022-02-13 09:56 | XMS_ITS | Encounter Summary ---
:1985 Author Organization [facility] Address [address] [place] [address] Care Team Providers Name Role Phone No Ref-Primary, Physician Primary Care Provider [phone] Hawa Valderrama NP Unavailable Jomar Castro MD Unavailable Encounter Details Date Type Department Care Team Description 04/19/2020 Travel Social History Tobacco Use Types Packs/Day Years Used Date Smoking Tobacco: Never Smokeless Tobacco: Never Alcohol Use Standard Drinks/Week Comments Never 0 (1 standard drink = 0.6 oz pure alcoho l) Alcohol Habits Answer Date Recorded How often [...] been in contact with No / Unsure 04/19/2020 3:32 PM CLERICAL TRANSCRIBER someone who was confirmed or suspected to have Coronavirus / COVID-19? documented as of this encounter Plan of Treatment Not on filedocumented as of this encounter Visit Diagnoses Not on filedocumented in this encounter Care Teams [place] Operator Relationship Specialty Start Date End Date No Ref-Primary, Physician PCP - General 04/01/20 Hawa Valderrama NP Assigned PCP 03/25/20 [address] [place], [place] [address] Jomar Castro MD Assigned Surgical Provider 1/10/21 7/8/2 2 [address] [facility] [address] [place], [place] [address] documented as of this encounter
--- OUTSIDE RECORDS SUMMARY | 2022-02-13 09:56 | XMS_ITS | Clinical Summary ---
:1985 Author Organization [facility] [employer] [place] [address] Care Team Providers Name Role Phone Jomar Seaman MD Primary Care Provider Allergies Active Allergy Reactions Severity Noted Date Comments Cinnamon Anaphylaxis 08/27/2006 Penicillins Anaphylaxis 08/27/2006 Medications Medication Sig Dispensed Refills Start Date End Date Status levothyroxine TAKE 1 TABLET BY 30 tablet 0 02/07/2011 Active (SYNTHROID) 200 mcg MOUTH EVERY DAY tabletIndications: BEFORE BREAKFAST Unspecified hypothyroidism norgestimate-ethinyl Take 1 tablet by 0 Active estradiol, 0.25-35 mouth once daily. mg-mcg, (MONO-LINYAH) 0.25-35 mg-mcg tablet ibuprofen (ADVIL; Take 400 mg by 0 Active MOTRIN) 200 mg cap mouth one time. Active Problems Problem Noted Date Unspecified hypothyroidism 05/10/2007 Migraine, unspecified, without mention of intractable migraine without 04/23/2007 mention of status migrainosus Allergic rhinitis, cause unspecified Resolved Problems Problem Noted Date Resolved Date Presence of intrauterine contraceptive device 10/28/2007 08/02/2010 Overview: Mirena IUD placed 03/2005 Unspecified asthma(493.90) 04/23/2007 Immunizations Name Administration Dates Next Due Td (Age >=7 Years) 03/26/1998 Family History Medical History Relation Name Comments Good Health Father Other Maternal Grandmother Alzheimers Good Health Mother Good Health Sister Relation Name Status Comments Father Maternal Grandmother Mother Sister Social History Tobacco Use Types Packs/Day Years Used Date Never Smoker Smokeless Tobacco: Never Used Comments: never Alcohol Use Standard Drinks/Week Comments Yes 0 (1 standard drink = 0.6 oz pure occasi onally, maybe once a month alcohol) Alcohol Habits Answer Date Recorded How often do you have a drink Not asked containing alcohol? How many drinks containing alcohol do Not asked you have on a typical day when you are drinking? How often do you have six or more Not asked drinks on one occasion? Comment: occasionally, maybe once a month 008 Sex Assigned at Date Recorded Not on file Obstetrics History Last Filed Vital Signs Vital Sign Reading Time Taken Comments Blood Pressure 145/65 08/12/2017 10:00 PM CDT Pulse 66 08/12/2017 10:00 PM CDT Temperature 36.7 ??C (98 ??F) 08/12/2017 7:52 PM CDT Respiratory Rate 18 08/12/2017 10:00 PM CDT Oxygen Saturation 100% 08/12/2017 10:00 PM CDT Inhaled Oxygen Concentration - - Weight 122.2 kg (269 lb 4.8 oz) 08/12/2017 7:52 PM CDT Height 162.6 cm (5' 4) 08/12/2017 7:52 PM CDT Body Mass Index 46.23 08/12/2017 7:52 PM CDT Plan of Treatment Health Maintenance Due Date Last Done Comments COVID-19 vaccine series (#1) 01/31/1986 Tdap 1996 Depression screening for age 12+ 1997 BMI (ht and wt on same day) for 08/01/2003 age 18+ Hepatitis C screening for age 0508/01/2003 18-79 Tetanus booster 03/26/2008 03/26/1998 Influenza for age 9-49 11/24/2021 Pap test for age 21-65 06/13/2024 06/13/2021, 06/13/2021, 04/16/2009, Additional history exists Results Not on filefrom Last 3 Months Insurance Payer Benefit Plan / Subscriber ID Effective Dates Phone Addre ss Type Group [employer] [id number] 2020-Present [address] [place] [address] [phone] (Home) [place] [address] Care Teams Patient Care Relationship Specialty Start Date End Date Jomar Seaman MD PCP - General Family Practice 12/10/201999 [place] [address]
--- OUTSIDE RECORDS SUMMARY | 2022-02-13 09:56 | XMS_ITS | Encounter Summary ---
:1985 Author Organization [place] Address [address] [place] [address] Care Team Providers Name Role Phone No Ref-Primary, Physician Primary Care Provider [phone] Hawa Valderrama NP Unavailable Jomar Castro MD Unavailable Reason for Referral Diagnostic Imaging Mammo (Routine) - Closed Specialty Diagnoses / Procedures Referred By Contact Refer red To Contact Diagnoses Papilloma of right breast Jomar Castro MD Procedures MA Post Procedure Right [address] [facility] [address] [place] [address] Referral ID Status Reason Start Date Expiration Date Visits Requ ested Visits Authorized [id number] Closed 04/02/2020 04/02/2021 1 1 CAID BUSINESS ANALYST Reason for Visit Auth/Cert Specialty Diagnoses / [...] LOCALIZED EXCISIONAL BIOPSY [address] [place], [place] [address] Phone: Fax: Referral ID Status Reason Start Date Expiration Date Visits Requ ested Visits Authorized [id number] 1 1 Encounter Details Date Type Department Care Team Description 05/14/2020 Hospital Encounter [facility] Jomar Castro, Papilloma of right [facility] [address] [facility] [address] [facility], [address] [place] [id number] Social History Tobacco Use Types Packs/Day [...] with No / Unsure 05/14/2020 6:57 AM MEDICAID BUSINESS ANALYST someone who was confirmed or suspected to [...] Name Priority Date/Time Associated Diagnosis Comme nts MA POST PROCEDURE Routine 05/14/2020 8:24 AM Papilloma of righ t Results for this RIGHT MEDICAID BUSINESS ANALYST breast procedure are i n the results section. documented in this encounter Results MA Post Procedure Right (05/14/2020 8:24 AM MEDICAID BUSINESS ANALYST) Anatomical Region Laterality Modality Breast Right Mammography Specimen (Source) Anatomical Location Collection Method / Collectio n Time Received Time / Laterality Volume Impressions 05/14/2020 8:26 AM MEDICAID BUSINESS ANALYST IMPRESSION: Successful placement of radioactive seed(s) for operative guidance. JUAN HAN MD Narrative 05/14/2020 8:26 AM MEDICAID BUSINESS ANALYST RIGHT BREAST SEED LOCALIZATION; POST SEED PLACEMENT [...] JUAN HAN MD Jomar Castro MD IMG MAMMOGRAPHY ORDERABLES documented in this encounter Visit Diagnoses Diagnosis Papilloma of right breast documented in this encounter Care Teams Pottery Machine Operator Relationship Specialty Start Date End Date No Ref-Primary, Physician PCP - General 04/01/20 Hawa Valderrama NP Assigned PCP 03/25/20 [place] [address] Jomar Castro MD Assigned Surgical Provider 04/04/20 2 [address] [facility] [address] [place] [address] documented as of this encounter
--- OUTSIDE RECORDS SUMMARY | 2022-02-13 09:56 | XMS_ITS | Clinical Summary ---
:1985 Author Organization [place] Address [address] [place] [address] Care Team Providers Name Role Phone No Ref-Primary, Physician Primary Care Provider [phone] Hawa Valderrama STAFFING ASSISTANT Unavailable Allergies Active Allergy Reactions Severity Noted Date Comments Penicillins Anaphylaxis High 04/01/2020 Medications Medication Sig Dispensed Refills Start Date End Date Status levothyroxine Take 1 tablet 90 tablet 3 04/19/2020 A ctive (SYNTHROID/LEVOTHROID) (200 mcg) by 200 MCG mouth daily tabletIndications: Other specified hypothyroidism oxyCODONE (ROXICODONE) Take 1-2 tablets 10 tablet 0 05/14/2020 Active 5 MG tabletIndications: (5-10 mg) by Papilloma of right mouth every 4 breast hours as needed for moderate to severe pain Active Problems Problem Noted Date Papilloma of breast 04/02/2020 Overview: Added automatically from request for antonia devin [id number] Morbid obesity 04/01/2020 Immunizations Name Administration Dates Next Due Flu, Unspecified 02/04/2015, 02/03/2013 Influenza (IIV3) PF 01/13/2014 TD (ADULT, 7+) 03/26/1998 TDAP Vaccine (Adacel) 08/23/2016, 03/24/2015 Family History Medical History Relation Comments Diabetes Father Lung Cancer Father Relation Status Comments Father Mother Alive Breast cancer Social History Tobacco Use Types Packs/Day Years Used Date Smoking Tobacco: Never Smokeless Tobacco: Never Tobacco Cessation: Counseling Given: No Alcohol Use Standard Drinks/Week Comments Yes 0 [...] Assigned at Date Recorded Not on file Last Filed Vital Signs Vital Sign Reading Time Taken Comments Blood Pressure 105/57 05/14/2020 12:50 PM SEQUINS SPOOLER Pulse 59 05/14/2020 12:50 PM SEQUINS SPOOLER Temperature 36.4 ??C (97.6 ??F) 05/14/2020 12:50 PM SEQUINS SPOOLER Respiratory Rate 16 05/14/2020 12:50 PM SEQUINS SPOOLER Oxygen Saturation 100% 05/14/2020 12:50 PM SEQUINS SPOOLER Inhaled Oxygen Concentration - - Weight 122 kg (268 lb 14.4 oz) 05/14/2020 7:14 AM SEQUINS SPOOLER Height 170.2 cm (5' 7) 05/14/2020 7:14 AM SEQUINS SPOOLER Body Mass Index 42.12 05/14/2020 7:14 AM SEQUINS SPOOLER Plan of Treatment Health Maintenance Due Date Last Done Comments ADVANCE CARE PLANNING 1985 ANNUAL REVIEW OF HM ORDERS 1985 HEPATITIS B IMMUNIZATION (1 1985 of 3 - 3-dose series) YEARLY PREVENTIVE VISIT 1985 COVID-19 Vaccine (#1) 01/31/1986 HIV SCREENING 2000 HEPATITIS C SCREENING 08/01/2003 PAP 2006 PHQ-2 (once per calendar 03/26/2021 04/19/2020 year) INFLUENZA VACCINE (#1) 2021 02/04/2015, 01/13/2014, 02/03/2013 DTAP/TDAP/TD IMMUNIZATION (4 08/23/2026 08/23/2016, - Td or Tdap) 03/24/2015, 03/26/1998 IPV IMMUNIZATION Aged Out No longer eligi ble based on patient's age to complete this to pic MENINGITIS IMMUNIZATION Aged Out No longe r eligible based on patient's age to complete this to pic Pneumococcal Vaccine: Aged Out No longer eligible based Pediatrics (0 to 5 Years) and on patient's age to At-Risk Patients (6 to 64 comple te this topic Years) Insurance Payer Benefit Plan Subscriber ID Effective Dates Phone Address Type / Group [employer] [id number] 2020-Pres [address] [address] Medicaid GUARANTOR ent [place] [id number] (Home) [place] [id number] SHENG,PROGRAM Special Other 03/26/1989 [address] [address] Guarantor (Home) [place] [id number] Care Teams Director Biology Relationship Specialty Start Date End Date No Ref-Primary, Physician PCP - General 04/01/20 Hawa Valderrama, KEN Assigned PCP 03/25/20 [address] [place], [place] [id number]
--- OUTSIDE RECORDS SUMMARY | 2022-02-13 09:56 | XMS_ITS | Encounter Summary ---
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 documented as of this encounter Plan of Treatment Not on filedocumented as of this encounter Visit Diagnoses Not on filedocumented in this encounter Care Teams Behavioral Therapy Coordinator Relationship Specialty Start Date End Date No Ref-Primary, Physician PCP - General 04/01/20 Hawa Valderrama, KEN Assigned PCP 03/25/20 [address] [place], [place] [address] Jomar Castro MD Assigned Surgical Provider 04/04/20 2 [address] [facility] [address] [place], [place] [id number] documented as of this encounter
--- OUTSIDE RECORDS SUMMARY | 2022-02-13 09:56 | XMS_ITS | Encounter Summary ---
:1985 Author Organization [place] Address [facility] [place] [address] Care Team Providers Name Role Phone No Ref-Primary, Physician Primary Care Provider [phone] Hawa Valderrama NP Unavailable Jomar Castro MD Unavailable Reason for Visit Auth/Cert Specialty Diagnoses / Procedures Referred By Contact Refer red To Contact Surgery Diagnoses Papilloma of breast Papilloma of breast [D24.9] Periop Services Procedures HC BX BREAST W DEVICE 1ST LESION, STEREOTACTIC GUIDE HC BX BREAST W DEVICE 1ST LESION, ULTRASOUND GUIDE HC BX BREAST W DEVICE 1ST LESION, MAGNETIC RES GUIDE RIGHT BREAST SEED LOCALIZED EXCISIONAL BIOPSY [address] [place], [place] [address] Phone: Fax: Referral ID Status Reason Start Date Expiration Date Visits Requ ested Visits Authorized [id number] 1 1 Encounter Details Date Type Department Care Team Description 05/14/2020 Anesthesia Event [facility] Tan Saucedo DO PeriOp Services [facility] [address] [facility] [place] [phone] [facility] [phone] [address] [place], [place] [address] [phone] (Wo rk) Anesthesia Record Procedure Summary Procedure Name Responsible Anesthesia Start Anesthesia Stop Anesthesiologist Time Time RIGHT BREAST SEED Tan Saucedo DO 05/14/20 1059 05/14/20 1145 LOCALIZED EXCISIONAL BIOPSY (Right: Breast) Events Date Time Event Comment 05/14/2020 0915 1055 Quick Note DOOR LINER HELPER with patien t in preop. Questions answered and cares explained before coming to OR. 1059 An Start 1059 An Start Data 1101 MD Present 1102 An Induction 1104 An LMA 1111 MD Present 1135 MD Present 1139 LMA Removed 1139 an stop data 1142 MD Present 1145 An Stop Electronically s igned by Kwesi Blank APRN CRNA on May 14, 2020 11:45 AM Name Total midazolam 1mg/mL 2 mg fentaNYL (SUBLIMAZE) injection 200 mcg propofol (DIPRIVAN) injection 10 mg/mL vial 200 mg propofol infusion (mcg/kg/min) 231.8 mg lidocaine 1% 50 mg glycopyrrolate 0.2 mg/mL 0.2 mg dexamethasone 4 mg/mL 4 mg ondansetron 2 mg/mL 4 mg phenylephrine (ANGELO-SYNEPHRINE) injection 100 mcg clindamycin (CLEOCIN) infusion 900 mg 900 mg lactated ringers infusion 0 mL Agents Name NO HELIOX O2 N2O Air Exp Sevoflurane Exp Isoflurane Exp Desflurane Exp N2O Ins Sevoflurane Ins Isoflurane Ins Desflurane O2 Auxiliary Blood No blood administrations on file. Lines, Drains, and Airways Type Details Placement Removal Incision/Surgical Site 05/14/20; 1138; Right; 05/14/20 1138 by Breast; steris 4x4 tape Rosi Bird RN Peripheral IV 05/14/20; 0741; 22 G; 05/14/20 0741 by 05/14/20 1327 by Left; Hand; Liyah Dash, Citlaly Healy , Chlorhexidine RN Supraglottic Airway Placement Date: 05/14/20 1104 by 05/14/20 11 39 by 05/14/20; Placement Kwesi Blank Rob in Time: 110 (created via BRITTANY Colon CRNA, APRN CRNA procedure documentation); Airway Type: Standard LMA; Mask Ventilation: 1; LMA Size: 4; Airway Brand: I-Gel; Attempts: 1 documented in this encounter Social History Tobacco [...] with No / Unsure 05/14/2020 6:57 AM SENIOR GOVERNMENT PROGRAM ANALYST someone who was confirmed or suspected to have Coronavirus / COVID-19? documented as of this encounter OR Notes Anesthesia Postprocedure Evaluation - Tan Saucedo DO - 05/14/2020 12:04 PM CST Patient: Anna Reed Procedure(s): RIGHT BREAST SEED LOCALIZED EXCISIONAL BIOPSY Diagnosis:Papilloma of breast [D24.9] Diagnosis Additional Information: No value filed. Anesthesia Type: General Note: Postop Pain Control: Uneventful Sign Out: Well controlled pain PONV: No Neuro/Psych: Uneventful Sign Out: Acceptable/Baseline neuro status Airway/Respiratory: Uneventful Sign Out: Acceptable/Baseline resp. status CV/Hemodynamics: Uneventful Sign Out: Acceptable CV status Other NRE: NONE DID A NON-ROUTINE EVENT OCCUR? No Last vitals: Vitals: 05/14/20 1145 05/14/20 1150 05/14/20 1155 BP: 122/75 122/84 123/69 Pulse: 66 81 66 Resp: 11 8 10 Temp: SpO2: 100% 99% 100% Last vitals prior to Anesthesia Care Transfer: DOOR LINER HELPER VITALS 05/14/2020 1109 - 05/14/2020 1204 05/14/2020 Pulse: 81 SpO2: 98 % Resp Rate (observed): (!) 4 Electronically Signed By: Tan Saucedo DO May 14, 2020 12:04 PM OR GOVERNMENT PROGRAM ANALYST Anesthesia Procedure Notes - Kwesi Blank APRN CRNA - 05/14/2020 11:14 AM CSTAssociated Order(s): Airway Airway Date/Time: 05/14/2020 11:04 AM Patient location during procedure: OR Staff - DOOR LINER HELPER: Kwesi Blank APRN DOOR LINER HELPER Performed By: DOOR LINER HELPER Consent for Airway Urgency: elective Indications and Patient Condition Indications for airway management: ray-procedural Induction type:intravenousMask difficulty assessment: 1 - vent by mask Final Airway Details Final airway type: supraglottic airway Endotracheal Airway Details Secured with: plastic tape Post intubation assessment Placement verified by: capnometry, equal breath sounds and chest rise Number of attempts at approach: 1 Number of other approaches attempted: 0 Secured with:plastic tape Ease of procedure: easy Dentition: Intact and Unchanged OR GOVERNMENT PROGRAM ANALYST Anesthesia Preprocedure Evaluation - Tan Saucedo, DO - 05/14/2020 9:14 AM CST Anesthesia Pre-Procedure Evaluation Patient: Anna Reed : 1985 Preoperative Diagnosis: Papilloma of breast [D24.9] Procedure : Procedure(s): RIGHT BREAST SEED LOCALIZED EXCISIONAL BIOPSY Past Medical History: Diagnosis Date ??? Obese ??? PONV (postoperative nausea and vomiting) ??? Thyroid disease Past Surgical History: Procedure Laterality Date ??? APPENDECTOMY ??? ENT SURGERY tonsilectomy Allergies Allergen Reactions ??? Penicillins Anaphylaxis Social History Tobacco Use ??? Smoking status: Never Smoker ??? Smokeless tobacco: Never Used Substance Use Topics ??? Alcohol use: Yes Frequency: Never Comment: 2 drinks per year Wt Readings from Last 1 Encounters: 05/14/20 122 kg (268 lb 14.4 oz) Anesthesia Evaluation ROS/MED HX ENT/Pulmonary: - neg pulmonary ROS Neurologic: - neg neurologic ROS Cardiovascular: - neg cardiovascular ROS METS/Exercise Tolerance: Hematologic: - neg hematologic ROS Musculoskeletal: - neg musculoskeletal ROS GI/Hepatic: - neg GI/hepatic ROS Renal/Genitourinary: - neg Renal ROS Endo: Comment: .Body mass index is 42.12 kg/m??. (+) thyroid problem, Obesity, Psychiatric/Substance Use: - neg psychiatric ROS Infectious Disease: - neg infectious disease ROS Malignancy: - neg malignancy ROS Other: Comment: .Lab Test 04/19/20 1601 WBC 7.9 HGB 12.2 MCV 86 PLT 199 Lab Test 04/19/20 1601 NA 137 POTASSIUM 3.6 CHLORIDE 106 CO2 25 BUN 13 CR 0.83 ANIONGAP 6 CYNDI 9.8 GLC 84 - neg other ROS Physical Exam Airway Mallampati: II Neck ROM: full Respiratory Devices and Support Dental Cardiovascular cardiovascular exam normal Rhythm and rate: regular Pulmonary pulmonary exam normal OUTSIDE LABS: CBC: Lab Results Component Value Date WBC 7.9 04/19/2020 HGB 12.2 04/19/2020 HCT 37.7 04/19/2020 PLT 199 04/19/2020 BMP: Lab Results Component Value Date NA 137 04/19/2020 POTASSIUM 3.6 04/19/2020 CHLORIDE 106 04/19/2020 CO2 25 04/19/2020 BUN 13 04/19/2020 CR 0.83 04/19/2020 GLC 84 04/19/2020 COAGS: No results found for: PTT, INR, FIBR POC: Lab Results Component Value Date HCG Negative 05/14/2020 HEPATIC: No results found for: ALBUMIN, PROTTOTAL, ALT, AST, GGT, ALKPHOS, BILITOTAL, BILIDIRECT, TIANA OTHER: Lab Results Component Value Date CYNDI 9.8 04/19/2020 TSH 3.35 04/19/2020 Anesthesia Plan ASA Status: 3 Anesthesia Type: General. Induction: Intravenous, Propofol. Maintenance: Balanced. Consents Anesthesia Plan(s) and associated risks, benefits, and realistic alternatives discussed. Questions answered and patient/primary care sales representative(s) expressed understanding. - Discussed with: Patient Postoperative Care Pain management: IV analgesics, Oral pain medications, Multi-modal analgesia. PONV prophylaxis: Ondansetron (or other 5HT-3), Dexamethasone or Solumedrol Comments: Tan Saucedo DO OR GOVERNMENT PROGRAM ANALYST documented in this encounter Miscellaneous Notes Addendum Note - Kwesi Blank APRN CRNA - 05/14/2020 12:39 PM SENIOR GOVERNMENT PROGRAM ANALYST Addendum created 05/14/20 1239 by Kwesi Blank APRN CRNA Intraprocedure Meds edited, Orders acknowledged in Narrator OR GOVERNMENT PROGRAM ANALYST Anesthesia Care Transfer Note - Kwesi Blank APRN CRNA - 05/14/2020 11:44 AM CST Patient: Anna Reed Procedure(s): RIGHT BREAST SEED LOCALIZED EXCISIONAL BIOPSY Diagnosis: Papilloma of breast [D24.9] Diagnosis Additional Information: No value filed. Anesthesia Type: General Note: Oropharynx: spontaneously breathing Level of Consciousness: awake Oxygen Supplementation: face mask Level of Supplemental Oxygen (L/min / FiO2): 6l Independent Airway: airway patency satisfactory and stable Dentition: dentition unchanged Vital Signs Stable: post-procedure vital signs reviewed and stable Report to RN Given: handoff report given Patient transferred to: PACU Comments: Pt to PACU, VSS, report to RN Handoff Report: Identifed the Patient, Identified the Reponsible Provider, Reviewed the pertinent medical history, Discussed the surgical course, Reviewed Intra-OP anesthesia mangement and issues during anesthesia, Set expectations for post-procedure period and Allowed opportunity for questions and acknowledgement of understanding Vitals: (Last set prior to Anesthesia Care Transfer) DINORAH VITALS 05/14/2020 1109 - 05/14/2020 1144 05/14/2020 Pulse: 81 SpO2: 98 % Resp Rate (observed): (!) 4 Electronically Signed By: Kwesi Blank APRN CRNA May 14, 2020 11:44 AM OR GOVERNMENT PROGRAM ANALYST documented in this encounter Plan of Treatment Not on filedocumented as of this encounter Procedures Procedure Name Priority Date/Time Associated Comments Diagnosis ANE AIRWAY Routine 05/14/2020 11:14 Results for this SUPRAGLOTTIC AM SENIOR GOVERNMENT PROGRAM ANALYST procedure are i n PERFORMABLE the results section. documented in this encounter Results ANE AIRWAY SUPRAGLOTTIC PERFORMABLE (05/14/2020 11:14 AM SENIOR GOVERNMENT PROGRAM ANALYST) Narrative Kwesi Blank APRN CRNA - 04/26 11:14 AM SENIOR GOVERNMENT PROGRAM ANALYST Kwesi Blank APRN CRNA ? 05/14/2020 11:14 AM Airway Date/Time: 05/14/2020 11:04 AM Patient location during procedure: OR Staff - DOOR LINER HELPER: Kwesi Blank APRN DOOR LINER HELPER Performed By: DOOR LINER HELPER Consent for Airway Urgency: elective Indications and Patient Condition Indications for airway management: ray- procedural Induction type:intravenousMask difficult y assessment: 1 - vent by mask Final Airway Details Final airway type: supraglottic airway Endotracheal Airway Details Secured with: plastic tape Post intubation assessment Placement verified by: capnometry, equal breath sounds and chest rise Number of attempts at approach: 1 Number of other approaches attempted: 0 Secured with:plastic tape Ease of procedure: easy Dentition: Intact and Unchanged Tan Saucedo DO [place] ANESTHESIA documented in this encounter Visit Diagnoses Not on filedocumented in this encounter Administered Medications Inactive Administered Medications - up to 3 most recent administrations Medication Order MAR Action Action Date Dose Rate Site clindamycin (CLEOCIN) infusion Given 05/14/2020 10:46 AM SENIOR GOVERNMENT PROGRAM ANALYST 900 mg 900 mg Routine, 900 mg, Intravenous, EVERY 8 HOURS, First dose on Sun05/14/20 at 0730, Indications: Perioperative Pharmacoprophylaxis, Pre-procedure dexamethasone (DECADRON) injection Given 05/14/2020 11:02 AM SENIOR GOVERNMENT PROGRAM ANALYST 4 mg Intravenous, PRN, Administer over 1 Minutes, Starting on Sun05/14/20 at 1102, Anesthesia Intra-op fentaNYL (PF) (SUBLIMAZE) injection Given 05/14/2020 11:21 AM SENIOR GOVERNMENT PROGRAM ANALYST 50 mcg PRN, Administer over 3-5 Minutes, Starting on Sun05/14/20 at 1102, Anesthesia Intra-op Given 05/14/2020 11:12 AM SENIOR GOVERNMENT PROGRAM ANALYST 50 mcg Given 05/14/2020 11:02 AM SENIOR GOVERNMENT PROGRAM ANALYST 100 mcg glycopyrrolate (ROBINUL) injection Given 05/14/2020 11:20 AM SENIOR GOVERNMENT PROGRAM ANALYST 0.2 mg Intravenous, PRN, Administer over 1-2 Minutes, Starting on Sun05/14/20 at 1120, Anesthesia Intra-op lactated ringers infusion New Bag 05/14/2020 10:30 AM SENIOR GOVERNMENT PROGRAM ANALYST at 25 mL/hr, Intravenous, CONTINUOUS, IF patient NOT on dialysis., Pre-procedure, Starting on Sun05/14/20 at 0730, Until Sun05/14/20 at 1141 lidocaine 1 % injection Given 05/14/2020 11:02 AM SENIOR GOVERNMENT PROGRAM ANALYST 50 mg Intravenous, PRN, Starting on Sun05/14/20 at 1102, Anesthesia Intra-op midazolam (VERSED) injection Given 05/14/2020 11:38 AM SENIOR GOVERNMENT PROGRAM ANALYST 2 mg Administer over 2 Minutes, PRN, Starting on Sun05/14/20 at 1138, Anesthesia Intra-op ondansetron (ZOFRAN) injection Given 05/14/2020 11:32 AM SENIOR GOVERNMENT PROGRAM ANALYST 4 mg Intravenous, PRN, Administer over 2-5 Minutes, Starting on Sun05/14/20 at 1132, Anesthesia Intra-op phenylephrine (ANGELO-SYNEPHRINE) injection New Bag 05/14/2020 11:02 AM SENIOR GOVERNMENT PROGRAM ANALYST 100 mcg Intravenous, CONTINUOUS PRN, Starting on Sun05/14/20 at 1102, Anesthesia Intra-op propofol (DIPRIVAN) infusion New Bag 05/14/2020 11:07 AM 50 mcg/kg/min 36.6 mL/hr Intravenous, CONTINUOUS PRN, SENIOR GOVERNMENT PROGRAM ANALYST Starting on Sun05/14/20 at 1107, Anesthesia Intra-op propofol (DIPRIVAN) injection 10 mg/mL v ial Given 05/14/2020 11:02 AM SENIOR GOVERNMENT PROGRAM ANALYST 200 mg PRN, Starting on Sun05/14/20 at 1102, Anesthesia Intra-op documented in this encounter Care Teams Commercial Loan Manager Relationship Specialty Start Date End Date No Ref-Primary, Physician PCP - General 04/01/20 Hawa Valderrama NP Assigned PCP 03/25/20 [address] [place] [address] Jomar Castro MD Assigned Surgical Provider 04/04/20 2 [address] [address] documented as of this encounter
--- OUTSIDE RECORDS SUMMARY | 2022-02-13 09:56 | XMS_ITS | Encounter Summary ---
:1985 Author Organization [facility] Address [address] [place] [address] Care Team Providers Name Role Phone No Ref-Primary, Physician Primary Care Provider [phone] Hawa Valderrama HELPER ELECTRICAL Unavailable Encounter Details Date Type Department Care Team Description 04/02/2020 Orders Only [facility] Jomar Castro MD Encounter for [facility] [address] screening for other [address] viral diseases [place], [place] (Primary Dx ) [phone] (Wo rk) Social History Tobacco Use Types Packs/Day Years [...] with No / Unsure 04/01/2020 3:49 PM 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 documented as of this encounter Plan of Treatment Not on filedocumented as of this encounter Results Asymptomatic COVID-19 Virus (Coronavirus) by PCR (05/11/2020 2:57 PM CRABBING MACHINE OPERATOR) Component Value Ref Test Analysis Performed At [facility] Method Time Signature COVID-19 Nasopharyngeal 05/11/2020 [place] Virus PCR to 3:02 PM CRABBING MACHINE OPERATOR CLINICS [facility] Source COVID-19 Test received-See 05/11/2020 INFECTIOUS Virus PCR to reflex to IDDL 6:42 PM CRABBING MACHINE OPERATOR DISEASES [facility] - test SARS CoV2 DIAGNOSTIC Result (COVID-19) Virus LABORATORY, RT-PCR [facility] Specimen (Source) Anatomical Collection Method Collection Time Re ceived Time Location / / Volume Laterality Specimen from 05/11/2020 2:57 05/11/2020 nasopharyngeal PM CRABBING MACHINE OPERATOR 3:02 PM CRABBING MACHINE OPERATOR structure (specimen) Jomar Castro MD LAB - MICRO GENERAL ORDERABL ES Performing Organization Address City/State/ZIP Code Phon e Number INFECTIOUS DISEASES [address] [place] [address] DIAGNOSTIC LABORATORY, [facility] [address] [place], [place] [address] [address] documented in this encounter Visit Diagnoses Diagnosis Encounter for screening for other viral diseases - Primary documented in this encounter Care Teams Bunghole Borer Relationship Specialty Start Date End Date No Ref-Primary, Physician PCP - General 04/01/20 Hawa Valderrama NP Assigned PCP 03/25/20 [address] [place], [place] [id number] documented as of this encounter
--- OUTSIDE RECORDS SUMMARY | 2022-02-13 09:56 | XMS_ITS | Encounter Summary ---
:1985 Author Organization [facility] Address [address] [place] [address] Care Team Providers Name Role Phone No Ref-Primary, Physician Primary Care Provider [phone] Hawa Valderrama CONTACT ACID PLANT OPERATOR HELPER Unavailable Jomar Castro MD Unavailable Reason for Visit Reason Comments Pre-Op Exam Encounter Details Date Type Department Care Team Description [facility] (Primary Dx[facility] [place] NP Other specified hypothyroidism [address] [place] [id number] Social History Tobacco Use Types Packs/Day Years Used Date Smoking Tobacco: Never Smokeless Tobacco: Never Tobacco Cessation: Counseling Given: No Alcohol Use Standard Drinks/Week Comments Never 0 [...] with No / Unsure 04/19/2020 3:32 PM CRYPTOGRAPHIC CENTER SPECIALIST someone who was confirmed or suspected to have Coronavirus / COVID-19? documented as of this encounter Last Filed Vital Signs Vital Sign Reading Time Taken Comments Blood Pressure 122/74 04/19/2020 3:40 PM CRYPTOGRAPHIC CENTER SPECIALIST Pulse 90 04/19/2020 3:40 PM CRYPTOGRAPHIC CENTER SPECIALIST Temperature 36.7 ??C (98 ??F) 04/19/2020 3:40 PM CRYPTOGRAPHIC CENTER SPECIALIST Respiratory Rate - - Oxygen Saturation 98% 04/19/2020 3:40 PM CRYPTOGRAPHIC CENTER SPECIALIST Inhaled Oxygen Concentration - - Weight 125.1 kg (275 lb 12.8 oz) 04/19/2020 3:40 PM CRYPTOGRAPHIC CENTER SPECIALIST Height 170.2 cm (5' 7) 04/19/2020 3:40 PM CRYPTOGRAPHIC CENTER SPECIALIST Body Mass Index 43.2 04/19/2020 3:40 PM CRYPTOGRAPHIC CENTER SPECIALIST documented in this encounter Patient Instructions Patient InstructionsNoemy Quigley, MA - 04/19/2020 3:40 PM CST Preparing for Your Surgery Getting started A nurse will call you to review your health history and instructions. They will give you an arrival time based on your scheduled surgery time. Please be ready to share the following: ?? Your doctor's clinic name and phone number ?? Your medical, surgical and anesthesia history ?? A list of allergies and sensitivities ?? A list of medicines, including herbal treatments and rhms-igc-xigjdig drugs ?? Whether the patient has a legal guardian (ask how to send us the papers in advance) If you have a child who's having surgery, please ask for a copy of Preparing for Your Child's Surgery. Preparing for surgery ?? Within 30 days of surgery: Have a pre-op exam (sometimes called an H&P, or History and Physical). This can be done at a clinic or pre-operative center. ? If you're having a , you may not need this exam. Talk to your care team ?? At your pre-op exam, talk to your care team about all medicines you take. If you need to stop anymedicines before surgery, ask when to start taking them again. ? We do this for your safety. Many medicines can make you bleed too much during surgery. Some changehow well surgery (anesthesia) drugs work. ?? Call your insurance company to let them know you're having surgery. (If you don't have insurance,call [phone].) ?? Call your clinic if there's any change in your health. This includes signs of a cold or flu (sorethroat, runny nose, cough, rash, fever). It also includes a scrape or scratch near the surgery site. ?? If you have questions on the day of surgery, call your hospital or surgery center. Eating and drinking guidelines For your safety: Unless your surgeon tells you otherwise, follow the guidelines below. ?? Eat and drink as usual until 8 hours before surgery. After that, no food or milk. ?? Drink clear liquids until 2 hours before surgery. These are liquids you can see through, like water, Gatorade and Propel Water. You may also have black coffee and tea (no cream or milk). ?? Nothing by mouth within 2 hours of surgery. This includes gum, candy and breath mints. ?? If you drink, stop drinking alcohol the night before surgery. ?? If your care team tells you to take medicine on the morning of surgery, it's okay to take it witha sip of water. Preventing infection ?? Shower or bathe the night before and morning of your surgery. Follow the instructions your clinicgave you. (If no instructions, use regular soap.) ?? Don't shave or clip hair near your surgery site. We'll remove the hair if needed. ?? Don't smoke or vape the morning of surgery. You may chew nicotine gum up to 2 hours before surgery. A nicotine patch is okay. ? Note: Some surgeries require you to completely quit smoking and nicotine. Check with your surgeon. ?? Your care team will make every effort to keep you safe from infection. We will: ? Clean our hands often with soap and water (or an alcohol-based hand rub). ? Clean the skin at your surgery site with a special soap that kills germs. ? Give you a special gown to keep you warm. (Cold raises the risk of infection.) ? Wear special hair covers, masks, gowns and gloves during surgery. ? Give antibiotic medicine, if prescribed. Not all surgeries need antibiotics. What to bring on the day of surgery ?? Photo ID and insurance card ?? Copy of your health care directive, if you have one ?? Glasses and hearing aides (bring cases) ? You can't wear contacts during surgery ?? Inhaler and eye drops, if you use them (tell us about these when you arrive) ?? CPAP machine or breathing device, if you use them ?? A few personal items, if spending the night ?? If you have . . . ? A pacemaker or ICD (cardiac defibrillator): Bring the ID card. ? An implanted stimulator: Bring the remote control. ? A legal guardian: Bring a copy of the certified (court-stamped) guardianship papers. Please remove any jewelry, including body piercings. Leave jewelry and other valuables at home. If you're going home the day of surgery Important: If you don't follow the rules below, we must cancel your surgery. ?? Arrange for someone to drive you home after surgery. You may not drive, take a taxi or take public transportation by yourself (unless you'll have local anesthesia only). ?? Arrange for a responsible adult to stay with you overnight. If you don't, we may keep you in the hospital overnight, and you may need to pay the costs yourself. Questions? If you have any questions for your care team, list them here: For informational purposes only. Not to replace the advice of your health care provider. Copyright ?? 2018 [facility]. All rights reserved. Clinically reviewed by Stefany Waite MD. [employer] [id number] - REV 07/13. TOGRAPHIC CENTER SPECIALIST documented in this encounter Progress Notes Hawa Valderrama, KEN - 04/19/2020 3:40 PM CST [address] [address] Primary Provider: No Ref-Primary, Physician PREOPERATIVE EVALUATION: Today's date: 04/19/2020 Anna Reed is a 34 year old female who presents for a preoperative evaluation. Surgical Information: Surgery/Procedure: Right breast seed localized excisional biopsy Surgery Location: [facility] Surgeon: Dr. Jmoar Castro Surgery Date: 05/14/20 Time of Surgery: 10 AM Where patient plans to recover: At home with family Fax number for surgical facility: Note does not need to be faxed, will be available electronically in [facility]. Type of Anesthesia Anticipated: General Subjective HPI [...] declined at this time. Preoperative Review of AUTOMOTIVE REFINISHER: AUTOMOTIVE REFINISHER reviewed - no record of controlled substances [...] Medium Added automatically from request for surgery [id number] ??? Morbid obesity (H) 04/01/2020 Priority: Medium [...] NA, POTASSIUM, CR, A1C in the last 13314 hours. Diagnostics: No EKG required for low [...] report is provided to requesting physician. Preop [facility] Preop Guidelines Revised Cardiac Risk Index TOGRAPHIC CENTER SPECIALIST documented in this encounter Plan of Treatment Not on filedocumented as of this encounter Procedures Procedure Name Priority Date/Time Associated Diagnosis Comme nts TSH Routine 04/19/2020 4:01 PM Other specified Result s for this CRYPTOGRAPHIC CENTER SPECIALIST hypothyroidism procedure are in the results section. BASIC METABOLIC Routine 04/19/2020 4:01 PM Preop general physi antonella Results for this PANEL CRYPTOGRAPHIC CENTER SPECIALIST exam procedure are i n the results section. CBC WITH PLATELETS Routine 04/19/2020 4:01 PM Preop general ph ysical Results for this CRYPTOGRAPHIC CENTER SPECIALIST exam procedure are i n the results section. documented in this encounter Results TSH (04/19/2020 4:01 PM CRYPTOGRAPHIC CENTER SPECIALIST) athologist Signature TSH 3.35 0.40 - 4.00 04/20/2020 [facility] mU/L 2:55 PM CRYPTOGRAPHIC CENTER SPECIALIST [facility] Specimen Anatomical Collection Method Collection Time Receive d Time (Source) Location / / Volume Laterality Blood specimen 04/19/2020 4:01 PM 021 4:02 (specimen) CRYPTOGRAPHIC CENTER SPECIALIST PM CRYPTOGRAPHIC CENTER SPECIALIST Hawa Valderrama NP LAB - BLOOD ORDERABLES Performing Organization Address City/State/ZIP Code Phon e Number [facility] [address] [place] [address] Basic metabolic panel (04/19/2020 4:01 PM CRYPTOGRAPHIC CENTER SPECIALIST) athologist Signature Sodium 137 133 - 144 04/20/2020 [facility] mmol/L 2:03 PM CRYPTOGRAPHIC CENTER SPECIALIST [facility] Potassium 3.6 3.4 - 5.3 04/20/2020 [facility] mmol/L 2:03 PM [facility] Chloride 106 94 - 109 04/20/2020 [facility] mmol/L 2:03 PM [facility]GRAPH[facility] CENTER SPECIAL[facility] Carbon Dioxide 25 20 - 32 04/20/2020 [facility] CS mmol/L 2:40 PM CRYPTOGRAPHIC CENTER SPECIALIST [facility] Anion Gap 6 3 - 14 04/20/2020 [facility] mmol/L 2:40 PM [facility] Glucose 84 70 - 99 04/20/2020 [facility] mg/dL 2:40 PM [facility] Comment: Fasting specimen Urea Nitrogen 13 7 - 30 mg/dL 04/20/2020 2:40 PM [facility] Creatinine 0.83 0.52 - 1.04 mg/dL 04/20/2020 2:40 PM CS T [facility] GFR Estimate >90 >60 04/20/2020 2:40 PM [facility] mL/min/{1.73_m2} [place] [facility] Comment: Non GFR Calc Starting 03/12/2018, serum creatinine ba sed estimated GFR (eGFR) will be calculated using the Chronic Kidney Dise [facility] Epidemiology Collaboration (CKD-EPI) equation. GFR Estimate If >90 >60 mL/min/{1.73_m2} 04/20/2020 2: 40 PM [facility] Black [facility] Comment: GFR Calc Starting 03/12/2018, serum creatinine ba sed estimated GFR (eGFR) will be calculated using the Chronic Kidney Dise [facility] Epidemiology Collaboration (CKD-EPI) equation. Calcium 9.8 8.5 - 10.1 mg/dL 04/20/2020 2:40 PM [facility] Specimen Anatomical Collection Method Collection Time Receive d Time (Source) Location / / Volume Laterality Blood specimen 04/19/2020 4:01 PM 021 4:02 (specimen) CRYPTOGRAPHIC CENTER SPECIALIST PM CRYPTOGRAPHIC CENTER SPECIALIST Hawa Valderrama NP LAB - BLOOD ORDERABLES Performing Organization Address City/State/ZIP Code Phon e Number [facility] [address] [place] [address] CBC with platelets (04/19/2020 4:01 PM CRYPTOGRAPHIC CENTER SPECIALIST) P athologist Signature WBC 7.9 4.0 - 11.0 04/19/2020 [place] 10e9/L 4:33 PM [facility] RBC Count 4.40 3.8 - 5.2 04/19/2020 [place] 10e12/L 4:33 PM [facility] Hemoglobin 12.2 11.7 - 04/19/2020 [place] 15.7 g/dL 4:33 PM [facility] Hematocrit 37.7 35.0 - 04/19/2020 [place] 47.0 % 4:33 PM [facility] MCV 86 78 - 100 04/19/2020 [place] fl 4:33 PM [facility] MCH 27.7 26.5 - 04/19/2020 [place] 33.0 pg 4:33 PM [facility] MCHC 32.4 31.5 - 04/19/2020 [place] 36.5 g/dL 4:33 PM [facility] RDW 13.3 10.0 - 04/19/2020 [place] 15.0 % 4:33 PM [facility] Platelet Count 199 150 - 450 04/19/2020 [place] 10e9/L 4:33 PM [facility] Specimen Anatomical Collection Method Collection Time Receive d Time (Source) Location / / Volume Laterality Blood specimen 04/19/2020 4:01 PM 021 4:02 (specimen) CRYPTOGRAPHIC CENTER SPECIALIST PM CRYPTOGRAPHIC CENTER SPECIALIST Hawa Valderrama NP LAB - BLOOD ORDERABLES Performing Organization Address City/State/ZIP Code Phon e Number [facility] [address] [place], [place] [address] [address] documented in this encounter Visit Diagnoses Diagnosis Preop general physical exam - Primary Other specified pre-operative examinatio n Other specified hypothyroidism documented in this encounter Administered Medications Administered Medications Medication Order MAR Action Action Date Dose Rate Site IG-IM Given 11/11/2012 Left Ventroglut eal Intramuscular documented in this encounter Care Teams Imaging Scheduler Relationship Specialty Start Date End Date No Ref-Primary, Physician PCP - General 04/01/20 Hawa Valderrama NP Assigned PCP 03/25/[address] [place] [address] Jomar Castro MD Assigned Surgical Provider 04/04/20 7 [address] [place] [address] documented as of this encounter
--- OUTSIDE RECORDS SUMMARY | 2022-02-13 09:57 | XMS_ITS | Encounter Summary ---
:1985 Author Organization [facility] Address [address] [place] [address] Care Team Providers Name Role Phone No Ref-Primary, Physician Primary Care Provider [phone] Hawa Valderrama CLICKER OPERATOR Unavailable Encounter Details Date Type Department Care Team Description 04/01/2020 Travel Social History Tobacco Use Types Packs/Day [...] with No / Unsure 04/01/2020 3:49 PM SALES FLOOR TEAM LEADER someone who was confirmed or suspected to have Coronavirus / COVID-19? documented as of this encounter Plan of Treatment Not on filedocumented as of this encounter Visit Diagnoses Not on filedocumented in this encounter Care Teams Chopper Gun Operator Relationship Specialty Start Date End Date No Ref-Primary, Physician PCP - General 04/01/20 Hawa Valderrama, KEN Assigned PCP 03/25/20 [address] [place], [place] [address] documented as of this encounter
--- OUTSIDE RECORDS SUMMARY | 2022-02-13 09:57 | XMS_ITS | Encounter Summary ---
:1985 Author Organization [facility] Address [address] [place] [address] Care Team Providers Name Role Phone Hawa Valderrama NP Unavailable Reason for Referral Diagnostic Imaging Ultrasound (Routine) - Closed Specialty Diagnoses / Procedures Referred By Contact Refer red To Contact Radiology. Diagnoses Nipple discharge Breast density Family history of breast cancer Jocelyn Jang MD Ultrasound Breast Procedures US Breast Biopsy Core Needle Right [facility] [address], [address] [place] [address] [place] [address] Referral ID Status Reason Start Date Expiration Date Visits Requ ested Visits Authorized [id number] Closed 03/16/2020 03/16/2021 1 1 MS INVESTIGATOR Reason for Visit Diagnostic Imaging Ultrasound (Routine) - Closed Specialty Diagnoses / Procedures Referred By Contact Refer red To Contact Radiology. Diagnoses Nipple discharge Breast density Family history of breast cancer Jocelyn Jang MD Ultrasound Breast Procedures US Breast Biopsy Core Needle Right [facility] [place] [address], [address] [place] [address] [place] [address] Referral ID Status Reason Start Date Expiration Date Visits Requ ested Visits Authorized [id number] Closed 03/16/2020 03/16/2021 1 1 Encounter Details Date Type Department Care Team Description 03/25/2020 Hospital Encounter [facility] Darlene Jang le discharge; [facility] Cresencio Banks MD Breast density; Center PLANNED Family history of breast can cer [address] [facility], [address] [address] [facility] [address] [address] [place], [place] [phone] [address] Social History Tobacco Use Types Packs/Day Years Used Date Smoking Tobacco: Never Assessed Alcohol Habits Answer Date Recorded How often [...] been in contact with No / Unsure 03/25/2020 10:05 AM CLAIMS INVESTIGATOR someone who was confirmed or suspected to have Coronavirus / COVID-19? documented as of this encounter Discharge Instructions Discharge InstructionsYancy Patel RN - 03/25/2020 10:51 AM CST Page 1 of 1 For informational purposes only. Not to replace the advice of your health care provider. Copyright ?? 2009 [facility]. All rights reserved. [employer] [id number] - REV 05/11. After Your Breast Biopsy Bleeding or bruising Slight bruising is normal. If you bleed through the bandage, put direct pressure on the breast for 10 minutes. If the breast begins to swell, or you have a lot of bleeding after 10 minutes of pressure, call the doctor who ordered your exam. Or, go to the emergency room. Bandages Keep your bandage in place until tomorrow morning. Do not get it wet. If you have small pieces of tape on the skin, leave them in place. They will fall off on their own, or you can remove them after 5 days. Activity You may shower the morning after the exam. No heavy activity (lifting, vacuuming) on the day of yourexam. You may go back to normal activity the next day, unless you had a lot of bleeding or pain. Discomfort You may take Tylenol (acetaminophen) today for pain. Tomorrow, you may take an anti-inflammatory medicine (aspirin, ibuprofen, Motrin, Aleve, Advil), unless your doctor tells you not to. Wear your bra overnight to support the breast. You may also use an ice pack: Place it over the area for 15-20 minutes several times a day. Infection Infection is rare. Symptoms include fever, redness, increasing pain and fluid draining from the biopsy site. If you have any of these symptoms, please call the doctor who ordered your exam. Results Results may take up to 5 business days. A nurse or doctor from the Breast Center will call with yourresults. We will also send the results to the doctor who ordered your biopsy. If you have not heard your results in 5 days, please call the Breast Center. Other instructions Call your doctor if: You have bleeding that lasts more than 10 minutes. You have pain that cannot be controlled. You have signs of infection (fever, redness, drainage or other signs). You have not received your results within 5 days. Please call the [facility] nurse navigator at [phone] if you have questions or concerns about your biopsy. MS INVESTIGATOR documented in this encounter Medications at Time of Discharge Medication Sig Dispensed Refills Start Date End Date levothyroxine Take 200 mcg by 0 12/04/20192020 (SYNTHROID/LEVOTHROID) 200 mouth daily MCG tablet documented as of this encounter Plan of Treatment Not on filedocumented as of this encounter Procedures Procedure Name Priority Date/Time Associated Diagnosis Comme nts BREAST BIOPSY Routine 03/25/2020 10:42 AM Nipple disc harge Results for this CORE NEEDLE RIGHT CLAIMS INVESTIGATOR Breast density procedure are in Family history of the result s breast cancer section. SURGICAL PATHOLOGY Routine 03/25/2020 10:38 AM Nipple di scharge Results for this EXAM CLAIMS INVESTIGATOR Breast density procedure are in Family history of the result s breast cancer section. documented in this encounter Results US Breast Biopsy Core Needle Right (03/25/2020 10:42 AM CLAIMS INVESTIGATOR) Anatomical Region Laterality Modality Breast Right Ultrasound Specimen (Source) Anatomical Location Collection Method / Collectio n Time Received Time / Laterality Volume Addenda Addendum by Moody Han MD on 03/30/2020 11:29 AM CLAIMS INVESTIGATOR Pathology Results: Intraductal papilloma. Please see full pathology report for fur ther details. Results are concordant with imaging find ings. Recommendation: Surgical consultation. MOODY HAN MD Impressions 03/25/2020 10:51 AM CLAIMS INVESTIGATOR IMPRESSION: ?Uncomplicated ultrasound guided core needle biopsy of the RIGHT breast. MOODY HAN MD Narrative 03/25/2020 10:51 AM CLAIMS INVESTIGATOR Ultrasound guided RIGHT breast biopsy. Comparisons: 03/16/2020 FINDINGS: Procedure, risks, benefits and alternatives were discussed with the patient and the patient gave wr itten and verbal consent. Aseptic technique was utilized. 1% lidoc trey was utilized for local anesthesia. Under ultrasound guidance, b iopsy of mass was performed and marker placed as follows and images were archived: Size: 14 gauge core needle biopsy system Number of cores: 3 Position: 3:00 retroareolar RIGHT breast Marker: HydroMark Less than 5 mL blood loss. Pressure was held over this area for approximately 10 minutes. A dressing was placed and care instructions were discussed with the patient. Post biopsy mammogram demonstrates clip deployment. Procedure Note Moody Han MD - 03/25/2020 Ultrasound guided RIGHT breast biopsy. Comparisons: 03/16/2020 FINDINGS: Procedure, risks, benefits and alternatives were discussed with the patient and the patient gave wr itten and verbal consent. Aseptic technique was utilized. 1% lidoc trey was utilized for local anesthesia. Under ultrasound guidance, b iopsy of mass was performed and marker placed as follows and images were archived: Size: 14 gauge core needle biopsy system Number of cores: 3 Position: 3:00 retroareolar RIGHT breast Marker: HydroMark Less than 5 mL blood loss. Pressure was held over this area for approximately 10 minutes. A dressing was placed and care instructions were discussed with the patient. Post biopsy mammogram demonstrates clip deployment. IMPRESSION: Uncomplicated ultrasound niesha ded core needle biopsy of the RIGHT breast. MOODY HAN MD Jocelyn Jang MD IMG US ORDERABLES Surgical pathology exam (03/25/2020 10:38 AM CLAIMS INVESTIGATOR) Component Value Ref Test Analysis Performed At [facility] Range Method Time Signature Copath Report Patient Name: ANNA DELVALLE MR#: [id number] Specimen #: [id number] Collected: 03/25/2020 Received: 03/25/2020 Reported: 03/29/2020 07:46 Ordering Phy(s): MOODY HAN For improved result formatting, select 'View Enhanced Report Format' under Linked Documents section. SPECIMEN(S): Right ultrasound guided breast needle biopsy, 3:00, retroare olar FINAL DIAGNOSIS: Breast, right, 3:00, retroareolar, ultrasound-guided needle core biopsy. - Fragments of intraductal papilloma with areas of florid hy perplasia. - Negative for atypia and malignancy. Electronically signed out by: Blair Ayala M.D. CLINICAL HISTORY: Right breast, 1.3 cm low suspicion mass (likely papilloma) a t 3:00, retroareolar. GROSS: The specimen is received in formalin labeled with the patien t's name, identifying information and designated right breast needle core biopsy 3:00, retroareolar. ??It c onsists of two vazquez to hemorrhagic friable fibrofatty tissue cores admixed with smaller fragments, aggr egating to 1.5 x 0.4 x 0.2 cm. ??Submitted entirely in one block. (Dictated by: MIGUELINA Tucker 03/25/2020 11: 27 AM) MICROSCOPIC: There are fragments of intraductal papilloma with areas of h yperplasia. ?? No atypia or malignancy is seen in the submitted sample. Case internally consulted with an additional pathologist Dr. HERCULES who concurs. The technical component of this testing was completed at the [facility], with the professional compo nent performed at the [facility], [address], [place], [place] [phone] ([phone]) CPT Codes: A: 71687-YM0 COLLECTION SITE: Client: [facility] Location: RHBCUS (R) Specimen (Source) Anatomical Collection Method Collection Time Re ceived Time Location / / Volume Laterality Tissue specimen BREAST STRUCTURE / 03/25/2020 10:38 (specimen) Unknown AM CLAIMS INVESTIGATOR Comment: Right breast ultrasound core bi opsy, 3:00, Retroareolar, 1.3 cm size. Low suspicion. Performed by Dr. Moody Han. Indication: right breast mass, likely papilloma. Moody BLACK - [facility] Performing Organization Address City/State/ZIP Code Phon e Number COPATH documented in this encounter Visit Diagnoses Diagnosis Nipple discharge Other sign and symptom in breast Breast density Other sign and symptom in breast Family history of breast cancer Family history of malignant neoplasm of breast documented in this encounter Administered Medications Inactive Administered Medications - up to 3 most recent administrations Medication Order MAR Action Action Date Dose Rate Site lidocaine 1 % 5 mL Given 03/25/2020 10:32 AM CLAIMS INVESTIGATOR 5 mLs 5 mL, Subcutaneous, ONCE, On Mily 03/25/20 at 1030, For 1 dose documented in this encounter Care Teams Cemetery Laborer Relationship Specialty Start Date End Date Hawa Valderrama NP Assigned PCP 03/25/20 [address] [place] [address] documented as of this encounter
--- OUTSIDE RECORDS SUMMARY | 2022-02-13 09:57 | XMS_ITS | Encounter Summary ---
:1985 Author Organization [facility] Address [address] [place] [address] Care Team Providers Name Role Phone Hawa Vladerrama ARTISTS' BOOKING REPRESENTATIVE Unavailable Encounter Details Date Type Department Care Team Description 03/25/2020 Travel Social History Tobacco Use Types Packs/Day [...] with No / Unsure 03/25/2020 10:05 AM DESK MANAGER someone who was confirmed or suspected to have Coronavirus / COVID-19? documented as of this encounter Plan of Treatment Not on filedocumented as of this encounter Visit Diagnoses Not on filedocumented in this encounter Care Teams Sales Rep Relationship Specialty Start Date End Date Hawa Valderrama NP Assigned PCP 03/25/20 [place] [address] documented as of this encounter
--- OUTSIDE RECORDS SUMMARY | 2022-02-13 09:57 | XMS_ITS | Encounter Summary ---
:1985 Author Organization [facility] Address [address] [place] [address] Care Team Providers Name Role Phone Hawa Valderrama NP Unavailable Encounter Details Date Type Department Care Team Description 03/29/2020 Telephone [facility] Breast Yancy Patel RN [place] [address] [facility], [address] [place] [address] Social History Tobacco Use [...] with No / Unsure 03/25/2020 10:05 AM NUT PICKER someone who was confirmed or suspected to have Coronavirus / COVID-19? documented as of this encounter Miscellaneous Notes Telephone Encounter - Yancy Patel RN - 03/29/2020 9:26 AM CST Pathology report reviewed with our breast radiologist Dr Sherwood, who confirmed the recent breast imaging is concordant with the final pathology results below. I phoned Ms Reed, confirmed her full name, date of , and informed patient of her ultrasound Guided right Breast Needle Biopsy (03/25/20) results showing Fragments of intraductal papilloma with areas of florid hyperplasia. - Negative for atypia and malignancy. Recommended follow up is surgical consult. Patient states no problems or concerns with her biopsy site. Questions answered and my phone number given if she has further questions or concerns. I informed patient I will notify the ordering provider of the results and recommendations for follow up. Patient verbalized understanding and agrees with the plan of care. Yancy Patel RN [facility]N Breast Care Nurse Coordinator [facility] [phone] PICKER documented in this encounter Plan of Treatment Not on filedocumented as of this encounter Visit Diagnoses Not on filedocumented in this encounter Care Teams Automation Qa Analyst Relationship Specialty Start Date End Date Hawa Valderrama, KEN Assigned PCP 03/25/20 [place] [address] documented as of this encounter
--- OUTSIDE RECORDS SUMMARY | 2022-02-13 09:57 | XMS_ITS | Encounter Summary ---
:1985 Author Organization [facility] Address [facility] [place] [address] Care Team Providers Name Role Phone Hawa Valderrama NP Unavailable Reason for Referral Diagnostic Imaging Mammo (Routine) - Closed Specialty Diagnoses / Procedures Referred By Contact Refer red To Contact Diagnoses Nipple discharge Breast density Family history of breast cancer Jocelyn Jang MD Procedures MA Post Procedure Right [facility] [place] [address] [place] [address] Referral ID Status Reason Start Date Expiration Date Visits Requ ested Visits Authorized [id number] Closed 03/16/2020 03/16/2021 1 1 GER MATERIALS MANAGEMENT Reason for Visit Diagnostic Imaging Mammo (Routine) - Closed Specialty Diagnoses / Procedures Referred By Contact Refer red To Contact Diagnoses Nipple discharge Breast density Family history of breast cancer Jocelyn Jang MD Procedures MA Post Procedure Right [place] [place] [address] [facility] [address] [place] [address] Referral ID Status Reason Start Date Expiration Date Visits Requ ested Visits Authorized [id number] Closed 03/16/2020 03/16/2021 1 1 Encounter Details Date Type Department Care Team Description 03/25/2020 Hospital Encounter [facility] Darlene Jang le discharge; [facility] Breast MD Jocelyn Breast density; Center PLANNED Family history of breast can cer [address] [facility], [address] [address] [facility] [address] [address] [address] [place], [place] [phone] [address] Social History Tobacco Use Types Packs/Day Years [...] with No / Unsure 03/25/2020 10:05 AM MANAGER MATERIALS MANAGEMENT someone who was confirmed or suspected to [...] Diagnosis Comme nts MA POST PROCEDURE Routine 03/25/2020 10:49 AM Nipple dis charge Results for this RIGHT MANAGER MATERIALS MANAGEMENT Breast density procedure are in Family history of the result s breast cancer section. documented in this encounter Results MA Post Procedure Right (03/25/2020 10:49 AM MANAGER MATERIALS MANAGEMENT) Anatomical Region Laterality Modality Breast Right Mammography Specimen (Source) Anatomical Location Collection Method / Collectio n Time Received Time / Laterality Volume Addenda Addendum by Juan Han MD on 03/30/2020 11:29 AM MANAGER MATERIALS MANAGEMENT Pathology Results: Intraductal papilloma. Please see full pathology report for fur ther details. Results are concordant with imaging find ings. Recommendation: Surgical consultation. JUAN HAN MD Impressions 03/25/2020 10:51 AM MANAGER MATERIALS MANAGEMENT IMPRESSION: ?Uncomplicated ultrasound guided core needle biopsy of the RIGHT breast. JUAN HAN MD Narrative 03/25/2020 10:51 AM MANAGER MATERIALS MANAGEMENT Ultrasound guided RIGHT breast biopsy. Comparisons: 03/16/2020 [...] biopsy mammogram demonstrates clip deployment. Procedure Note Juan Han MD - 03/25/2020 Ultrasound guided RIGHT [...] core needle biopsy of the RIGHT breast. JUAN HAN MD Jocelyn Jang MD IMG MAMMOGRAPHY ORDERABLES documented in this encounter Visit Diagnoses Diagnosis Nipple discharge Other sign and symptom in breast Breast density Other sign and symptom in breast Family history of breast cancer Family history of malignant neoplasm of breast documented in this encounter Care Teams Diesel Lube Tech Relationship Specialty Start Date End Date Hawa Valderrama NP Assigned PCP 03/25/20 [place] [address] documented as of this encounter
--- OUTSIDE RECORDS SUMMARY | 2022-02-13 09:57 | XMS_ITS | Encounter Summary ---
:1985 Author Organization [facility] Address [address] [place] [address] Care Team Providers Name Role Phone No Ref-Primary, Physician Primary Care Provider [phone] Hawa Valderrama WAFER BATTER MIXER Unavailable Reason for Visit Reason Comments Consult Breast Encounter Details Date Type Department Care Team Description 04/01/2020 Office Visit [facility] Jomar Castro MD Intraductal papilloma of breast, right ( Primary Dx); Surgery Clinic [address] [facility] Morbid obesity (H) [address] [place] [address] [address] [place], [place] [phone] (Wo rk) [address] [phone] Social History Tobacco Use Types Packs/Day Years [...] with No / Unsure 04/01/2020 3:49 PM APPAREL TRIMMINGS SALES REPRESENTATIVE someone who was confirmed or suspected to have Coronavirus / COVID-19? documented as of this encounter Last Filed Vital Signs Vital Sign Reading Time Taken Comments Blood Pressure 130/60 04/01/2020 3:52 PM APPAREL TRIMMINGS SALES REPRESENTATIVE Pulse 73 04/01/2020 3:52 PM APPAREL TRIMMINGS SALES REPRESENTATIVE Temperature - - Respiratory Rate 16 04/01/2020 3:52 PM APPAREL TRIMMINGS SALES REPRESENTATIVE Oxygen Saturation 100% 04/01/2020 3:52 PM APPAREL TRIMMINGS SALES REPRESENTATIVE Inhaled Oxygen Concentration - - Weight 122.5 kg (270 lb) 04/01/2020 3:52 PM APPAREL TRIMMINGS SALES REPRESENTATIVE Height 170.2 cm (5' 7) 04/01/2020 3:52 PM APPAREL TRIMMINGS SALES REPRESENTATIVE Body Mass Index 42.29 04/01/2020 3:52 PM APPAREL TRIMMINGS SALES REPRESENTATIVE documented in this encounter Progress Notes Jomar Castro MD - 04/01/2020 4:00 PM CST HPI: right breast discharge noted 6 months ago; initially gold but changed to bloody. Skin rashes, dimpling or nipple changes: none Nipple discharge: right Does perform self breast exams on an irregular basis and has noted no changes. Previous breast biopsies: No Previous cyst aspiration: No Previous other breast surgery: No No family history on file. Family history of breast cancer: Yes - mother at 39, grandmother-unknown age she is not aware of any genetic testing having been done Mammography reveals: no abnormality US reveals: an intraductal nodule measuring 1.3 cm at the 3 o'clock position retroareolar Percutaneous core needle biopsy reveals: a papilloma with florid hyperplasia but no atypia or malignancy Past Medical History: has no past medical history on file. Past Surgical History: No past surgical history on file. Social History: Social History Socioeconomic History ??? Marital status: Spouse name: Not on file ??? Number of children: Not on file ??? Years of education: Not on file ??? Highest education level: Not on file Occupational History ??? Not on file Social Needs ??? Financial resource strain: Not on file ??? Food insecurity Worry: Not on file Inability: Not on file ??? Transportation needs Medical: Not on file Non-medical: Not on file Tobacco Use ??? Smoking status: Not on file Substance and Sexual Activity ??? Alcohol use: Not on file ??? Drug use: Not on file ??? Sexual activity: Not on file Lifestyle ??? Physical activity Days per week: Not on file Minutes per session: Not on file ??? Stress: Not on file Relationships ??? Social connections Talks on phone: Not on file Gets together: Not on file Attends latter day service: Not on file Active member of club or organization: Not on file Attends meetings of clubs or organizations: Not on file Relationship status: Not on file ??? Intimate partner violence Fear of current or ex partner: Not on file Emotionally abused: Not on file Physically abused: Not on file Forced sexual activity: Not on file Other Topics Concern ??? Not on file Social History Narrative ??? Not on file PE: Vitals: There were no vitals taken for this visit. General appearance: well-nourished, sitting comfortably, no apparent distress Neck: Supple without thyromegaly, lymphadenopathy, masses Lungs: Respirations unlabored Abdomen: soft, nondistended Extremities: Without edema Neurologic: nonfocal, grossly intact times four extremities, alert and oriented times three Psychiatric: Mood and affect are appropriate Skin: Without lesions or rashes Breast: Masses- none -breast tissue is heterogeneously dense Ecchymosis- right, at the areolar margin, 3:00 Incisional scar- none Axillae: Palpable adenopathy: none Assessment: Right breast intraductal papilloma, 3 o'clock position, subareolar PLAN: Discussed options for management of this papilloma. We discussed the spectrum of abnormalities that could be noted on pathology evaluation of breast nodules ranging from completely benign to hyperplasia to atypia to preinvasive cancer to invasive malignancy. Currently, she has florid hyperplasia but no atypia. We discussed seed localization, incision, scar, numbness, nursing difficulties, potential for recurrent disease and possible need for additional surgery if malignancy is detected. We also discussed her strong family history and the need for careful surveillance as well as the option of being seen in a high risk breast cancer clinic to discuss risk reduction strategies. For now, she would like to schedule seed localized excisional biopsy and will consider further genetic evaluation pending the results of her biopsy. Jomar Castro MD Please route or send letter to: Primary Care Provider (PCP) and Include Progress Note REL TRIMMINGS SALES REPRESENTATIVE Sierra Boss - 04/01/2020 4:00 PM CST REVIEW OF SYSTEMS: Constitutional: Negative Cardiovascular: Negative Respiratory: Negative Endocrine: Negative Hematologic: Negative Gastrointestinal: Negative Genitourinary: Negative Musculoskeletal: Negative Integumentary / Breast : Negative Neurologic: Negative Breast Patients BREAST PATIENTS (FEMALE) At what age did your periods begin? 13 What was the date of your last menstrual period? 03/30/20 Have you begun menopause? No Are you using hormone replacement therapy? no Number of full-term pregnancies: 3 Did you nurse your children? No Are you now? No Do you have breast implants? No BREAST PATIENTS (ALL) Have you had a previous breast biopsy? Yes Side: Right Date: 03/30/20 Have you had previous Breast Cancer? No REL TRIMMINGS SALES REPRESENTATIVE documented in this encounter Plan of Treatment Not on filedocumented as of this encounter Visit Diagnoses Diagnosis Intraductal papilloma of breast, right - Primary Morbid obesity (H) Morbid obesity documented in this encounter Care Teams Supply And Distribution Manager Relationship Specialty Start Date End Date No Ref-Primary, Physician PCP - General 04/01/20 Hawa Valderrama, KEN Assigned PCP 03/25/20 [place] [address] documented as of this encounter
--- OUTSIDE RECORDS SUMMARY | 2022-02-13 09:57 | XMS_ITS | Encounter Summary ---
:1985 Author Organization [place] Address [address] [place] [address] Care Team Providers Name Role Phone No Ref-Primary, Physician Primary Care Provider [phone] Hawa Valderrama BRIDGE WORKER Unavailable Encounter Details Date Type Department Care Team Description 04/01/2020 Prep for Procedure [facility] Jomar Castro, Papilloma of breast Surgery Clinic (Primary Dx) [place] [address] [facility] [address] [place] [phone] Social History Tobacco Use Types Packs/Day Years [...] with No / Unsure 04/01/2020 3:49 PM TALENT DEVELOPMENT ANALYST someone who was confirmed or suspected to have Coronavirus / COVID-19? documented as of this encounter Plan of Treatment Not on filedocumented as of this encounter Visit Diagnoses Diagnosis Papilloma of breast - Primary Benign neoplasm of breast documented in this encounter Care Teams Knitting Machine Fixer Head Relationship Specialty Start Date End Date No Ref-Primary, Physician PCP - General 04/01/20 Hawa Valderrama, KEN Assigned PCP 03/25/20 [address] [place] [address] documented as of this encounter
--- OUTSIDE RECORDS SUMMARY | 2022-02-13 09:57 | XMS_ITS | Encounter Summary ---
:1985 Author Organization [place] Address [address] [place] [address] Care Team Providers Name Role Phone No Ref-Primary, Physician Primary Care Provider [phone] Hawa Valderrama PLAYERS ASSISTANT Unavailable Reason for Referral Diagnostic Imaging Mammo (Routine) - Closed Specialty Diagnoses / Procedures Referred By Contact Refer red To Contact Diagnoses Papilloma of right breast Jomar Castro MD Procedures MA Post Procedure Right [address] [place] [address] Referral ID Status Reason Start Date Expiration Date Visits Requ ested Visits Authorized [id number] Closed 04/02/2020 04/02/2021 1 1 iagnostic Imaging Ultrasound (Routine) - Closed Specialty Diagnoses / Procedures Referred By Contact Refer red To Contact Diagnoses Papilloma of right breast Jomar Castro MD Procedures US Breast Radioactive Seed Placement, 1St Lesion Right [address] [place] [address] Referral ID Status Reason Start Date Expiration Date Visits Requ ested Visits Authorized [id number] Closed 04/02/2020 04/02/2021 1 1 ASSEMBLER WOOD Encounter Details Date Type Department Care Team Description 04/02/2020 Orders Only [facility] Jomar Castro MD Papilloma of right Surgery Clinic [address] breast (Primary Dx) [place] [address] [place], [place] [address] [address] [place], [place] [phone] (Wo rk) [address] [phone] Social History Tobacco Use Types Packs/Day Years [...] with No / Unsure 04/01/2020 3:49 PM TOY ASSEMBLER WOOD someone who was confirmed or suspected to have Coronavirus / COVID-19? documented as of this encounter Plan of Treatment Not on filedocumented as of this encounter Results MA Post Procedure Right (05/14/2020 8:24 AM TOY ASSEMBLER WOOD) Anatomical Region Laterality Modality Breast Right Mammography Specimen (Source) Anatomical Location Collection Method / Collectio n Time Received Time / Laterality Volume Impressions 05/14/2020 8:26 AM TOY ASSEMBLER WOOD IMPRESSION: Successful placement of radioactive seed(s) for operative guidance. JUAN HAN MD Narrative 05/14/2020 8:26 AM TOY ASSEMBLER WOOD RIGHT BREAST SEED LOCALIZATION; POST SEED PLACEMENT [...] MD Jomar Castro MD IMG MAMMOGRAPHY ORDERABLES US Breast Radioactive Seed Placement, 1St Lesion Right (05/14/2020 8:22 AM TOY ASSEMBLER WOOD) Anatomical Region Laterality Modality Breast Right Ultrasound Specimen (Source) Anatomical Location Collection Method / Collectio n Time Received Time / Laterality Volume Impressions 05/14/2020 8:26 AM TOY ASSEMBLER WOOD IMPRESSION: Successful placement of radioactive seed(s) for operative guidance. JUAN HAN MD Narrative 05/14/2020 8:26 AM TOY ASSEMBLER WOOD RIGHT BREAST SEED LOCALIZATION; POST SEED PLACEMENT [...] guidance. JUAN HAN MD Jomar Castro MD [facility] ORDERABLES documented in this encounter Visit Diagnoses Diagnosis Papilloma of right breast - Primary Papilloma of right breast Papilloma of right breast documented in this encounter Care Teams Manifold Operator Relationship Specialty Start Date End Date No Ref-Primary, Physician PCP - General 04/01/20 Hawa Valderrama, KEN Assigned PCP 03/25/20 [place] [address] documented as of this encounter
--- OUTSIDE RECORDS SUMMARY | 2022-02-13 09:57 | XMS_ITS | Encounter Summary ---
:1985 Author Organization [place] Address [address] [place] [address] Care Team Providers Name Role Phone Unavailable Primary Care Provider Unavailable Reason for Visit Reason Onset Date Comments Results 03/24/2020 Encounter Details Date Type Department Care Team Description 03/24/2020 Telephone [facility] Kenrick Paul RN Results Laboratory [address] [place] [address] Social History Tobacco Use [...] been in contact with No / Unsure 03/16/2020 12:34 PM MARKET BASKET MAKER someone who was confirmed or suspected to have Coronavirus / COVID-19? documented as of this encounter Miscellaneous Notes Telephone Encounter - Kenrick Paul, SCOTT - 03/24/2020 4:18 PM CST ???Coronavirus (COVID-19) Notification Lab Result Lab test 2019-nCoV marketing intelligence analyst-PCR OR SARS-COV-2 PCR Nasopharyngeal AND/OR Oropharyngeal swab is NEGATIVE for 2019-nCoV RNA [OR] SARS-COV-2 RNA (COVID-19) RNA Your result was negative. This means that we didn't find the virus that causes COVID-19 in your sample. A test may show negative when you do actually have the virus. This can happen when the virus is in the early stages of infection, before you feel illness symptoms. If you have symptoms Stay home and away from others (self-isolate) until you meet ALL of the guidelines below: ??? You've had no fever--and no medicine that reduces fever--for 1 full day (24 hours). And ? Your other symptoms have gotten better. For example, your cough or breathing has improved. And??? ; At least 10 days have passed since your symptoms started. (If you've been told by a doctor that you have a weak immune system, wait 20 days.) ??? During this time: ??? Stay home. Don't go to work, school or anywhere else. ??? Stay in your own room, including for meals. Use your own bathroom if you can. ??? Stay away from others in your home. No hugging, kissing or shaking hands. No visitors. ??? Clean ???high touch?? surfaces often (doorknobs, counters, handles, etc.). Use a household cleaning spray or wipes. You can find a full list on the EPA website at www.epa.gov/pesticide-registration /lqzn-a-pjwozdznqctiw-ilp-inkigcw-kulu-cov-2. ??? Cover your mouth and nose with a mask, tissue or other face covering to avoid spreading germs. ??? Wash your hands and face often with soap and water. Going back to work Check with your employer for any guidelines to follow for going back to work. You are sent a letter for your Employer which will serve as formal document notice that you, the employee, tested negative for COVID-19, as of the testing date shown above. If your symptoms worsen or other concerning symptoms, contact PCP, oncare or consider returning to Emergency Dept. Where can I get more information? [facility]: [email or web address] ??? Coronavirus Basics: www.health.[facility].fl.us/diseases/coronavirus/basics.html ??? [facility] Hotline (574-903-2477) Kenrick Paul RN ET BASKET MAKER documented in this encounter Plan of Treatment Not on filedocumented as of this encounter Visit Diagnoses Not on filedocumented in this encounter
--- OUTSIDE RECORDS SUMMARY | 2022-02-13 09:58 | XMS_ITS | Encounter Summary ---
:1985 Author Organization [place] Address [facility] [place] [address] Care Team Providers Name Role Phone Unavailable Primary Care Provider Unavailable Encounter Details Date Type Department Care Team Description 03/16/2020 Orders Only [facility] [place], Encounter for [facility] MD Jocelyn screening for other [address], [place] [facility] viral diseases [address] [address] MARISSA SHIVANI (Primary Dx) [facility] [address] [address] [place], [place] [phone] [address] Social History Tobacco Use Types Packs/Day [...] with No / Unsure 03/16/2020 12:34 PM BARN HAND someone who was confirmed or suspected to have Coronavirus / COVID-19? documented as of this encounter Plan of Treatment Not on filedocumented as of this encounter Results Asymptomatic COVID-19 Virus (Coronavirus) by PCR (03/21/2020 12:34 PM BARN HAND) Component Value Ref Test Analysis Performed At [facility] Method Time Signature COVID-19 Nasopharyngeal 03/21/2020 [place] Virus PCR to 12:37 PM [facility] Source COVID-19 Test received-See 03/21/2020 INFECTIOUS Virus PCR to reflex to IDDL 10:46 PM DISEASES [facility] [place] - test SARS CoV2 BARN HAND DIAGNOSTIC Result (COVID-19) Virus LABORATORY, RT-PCR [facility] Specimen (Source) Anatomical Collection Method Collection Time Re ceived Time Location / / Volume Laterality Specimen from 03/21/2020 12:34 03/21/2020 nasopharyngeal PM BARN HAND 12:37 PM BARN HAND structure (specimen) Jocelyn Jang MD LAB - MICRO GENERAL ORDERABL ES Performing Organization Address City/State/ZIP Code Phon e Number INFECTIOUS DISEASES [address] [place] [address] DIAGNOSTIC LABORATORY, [facility] [address] [phone] documented in this encounter Visit Diagnoses Diagnosis Encounter for screening for other viral diseases - Primary documented in this encounter
--- OUTSIDE RECORDS SUMMARY | 2022-02-13 09:58 | XMS_ITS | Encounter Summary ---
:1985 Author Organization [facility] Address [address] [place] [address] Care Team Providers Name Role Phone Unavailable Primary Care Provider Unavailable Reason for Referral Diagnostic Imaging Ultrasound (Routine) - Closed Specialty Diagnoses / Procedures Referred By Contact Refer red To Contact Radiology. 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 Diagnoses Nipple discharge Breast density Family history of breast cancer Jocelyn Jang MD Rh Ultrasound Breast Procedures US Breast Right [place] [address], [address] [place] [address] [place] [address] [place] [address] Referral ID Status Reason Start Date Expiration Date Visits Requ ested Visits Authorized [id number] Closed 03/10/2020 03/10/2021 1 1 Encounter Details Date Type Department Care Team Description 03/16/2020 Hospital Encounter [facility] [place], Nipp le discharge; [facility] Breast MD Jocelyn Breast density; Center PLANNED Family history of breast can cer [address] [place] [facility], [address] [address] [facility] [address] [address] [place], [place] [phone] [address] Social History Tobacco Use Types Packs/Day Years [...] with No / Unsure 03/16/2020 12:34 PM 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 documented in this encounter Results US Breast Right (03/16/2020 2:28 PM AUTOMOBILE APPRAISER) Anatomical Region Laterality Modality Breast Right Ultrasound Specimen (Source) Anatomical Location Collection Method / Collectio n Time Received Time / Laterality Volume Impressions 03/16/2020 2:33 PM AUTOMOBILE APPRAISER IMPRESSION: BI-RADS CATEGORY: 3 - Probably Benign. Probable papilloma in the retroareolar r egion, as above. Ultrasound-guided core biopsy is recomme nded. Results and recommendation for biopsy were discussed with the patient during her appointment. RECOMMENDED FOLLOW-UP: Biopsy. POLA CASTILLO MD Narrative 03/16/2020 2:33 PM AUTOMOBILE APPRAISER MA DIAGNOSTIC BILATERAL W/ NANCY, US BREAST RIGHT LIMITED 1-3 QUADRANTS - ??03/16/2020 2:31 PM HISTORY: ??Palpable right breast lump. R ight nipple discharge. COMPARISON: ??None. BREAST DENSITY: Scattered fibroglandular densities. FINDINGS: ??Standard bilateral diagnosti c views were obtained, including tomosynthesis. Marker was plac ed on the right breast in the area of palpable concern; no associated abnormality is evident. The pattern of glandular tissue appears symm etric and there is no mammographic evidence of malignancy in e ither breast. Further evaluation with targeted right b reast ultrasound shows only normal glandular tissue in the area of c linical concern. In the retroareolar region there is an intraduc marco a nodule at approximately the 3:00 position, measuring 1.3 x 0.4 c m. Jocelyn Jang MD IMG US ORDERABLES documented in this encounter Visit Diagnoses Diagnosis Nipple discharge Other sign and symptom in breast Breast density Other sign and symptom in breast Family history of breast cancer Family history of malignant neoplasm of breast documented in this encounter
--- OUTSIDE RECORDS SUMMARY | 2022-02-13 09:58 | XMS_ITS | Encounter Summary ---
:1985 Author Organization [facility] Address [address] [place] [address] Care Team Providers Name Role Phone Unavailable Primary Care Provider Unavailable Reason for Referral Diagnostic Imaging Mammo (Routine) - Closed Specialty Diagnoses / Procedures Referred By Contact Refer red To Contact Diagnoses Nipple discharge Breast density Family history of breast cancer Jocelyn Jang MD Procedures MA Diagnostic Bilateral w/Júnior [place] [address] [place] [address] Referral ID Status Reason Start Date Expiration Date Visits Requ ested Visits Authorized [id number] Closed 03/10/2020 03/10/2021 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 Reason for Visit Diagnostic Imaging Mammo (Routine) - Closed Specialty Diagnoses / Procedures Referred By Contact Refer red To Contact Diagnoses Nipple discharge Breast density Family history of breast cancer Jocelyn Jang MD Procedures MA Diagnostic Bilateral w/Júnior [place] [address] [place] [address] Referral ID Status Reason Start Date Expiration Date Visits Requ ested Visits Authorized [id number] Closed 03/10/2020 03/10/2021 1 1 Encounter Details Date Type Department Care Team Description 03/16/2020 Hospital Encounter [facility] Darlene Jang le discharge; [facility] Breast MD Jocelyn Breast density; Center PLANNED Family history of breast can cer [address] [place] [facility], [address] [address] [facility] [address] [address] [place], [place] [phone] [address] Social History Tobacco Use Types Packs/Day Years [...] No / Unsure 03/16/2020 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 documented in this encounter Results MA Diagnostic Bilateral w/Júnior (03/16/2020 1:03 PM AUTOMOBILE MECHANIC ASSISTANT) Anatomical Region Laterality Modality Breast Bilateral Mammography Specimen (Source) Anatomical Location Collection Method / Collectio n Time Received Time / Laterality Volume Impressions 03/16/2020 2:33 PM AUTOMOBILE MECHANIC ASSISTANT IMPRESSION: BI-RADS CATEGORY: 3 - Probably Benign. Probable papilloma in the retroareolar r egion, as above. Ultrasound-guided core biopsy is recomme nded. Results and recommendation for biopsy were discussed with the patient during her appointment. RECOMMENDED FOLLOW-UP: Biopsy. POLA CASTILLO MD Narrative 03/16/2020 2:33 PM AUTOMOBILE MECHANIC ASSISTANT MA DIAGNOSTIC BILATERAL W/ JÚNIOR, US BREAST RIGHT LIMITED 1-3 QUADRANTS - [...] 0.4 c m. Jocelyn Jang MD IMG MAMMOGRAPHY ORDERABLES documented in this encounter Visit Diagnoses Diagnosis Nipple discharge Other sign and symptom in breast Breast density Other sign and symptom in breast Family history of breast cancer Family history of malignant neoplasm of breast documented in this encounter
--- OUTSIDE RECORDS SUMMARY | 2022-02-13 09:58 | XMS_ITS | Encounter Summary ---
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 documented as of this encounter Plan of Treatment Not on filedocumented as of this encounter Visit Diagnoses Not on filedocumented in this encounter
--- OUTSIDE RECORDS SUMMARY | 2022-02-13 09:58 | XMS_ITS | Encounter Summary ---
:1985 Author Organization [place] Address [facility] [place] [address] Care Team Providers Name Role Phone Unavailable Primary Care Provider Unavailable Encounter Details Date Type Department Care Team Description 03/21/[address] 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 COVID-19 VIRUS Routine 03/21/2020 12:34 PM Encounter for Resul ts for this (CORONAVIRUS) BY BARBER screening for other proc edure are in PCR viral diseases the results section. documented in this encounter Results SARS-CoV-2 COVID-19 Virus (Coronavirus) by PCR (03/21/2020 12:34 PM BARBER) [facility] Method Time Signature SARS-CoV-2 Nasopharyngeal 03/22/2020 INFECTIOUS Virus 12:23 PM DISEASES Specimen [facility] Source LABORATORY, [facility] SARS-CoV-2 NEGATIVE 03/22/2020 INFECTIOUS PCR Result 12:23 PM DISEASES [facility] LABORATORY, [facility] Comment: SARS-CoV2 (COVID-19) RNA not de tected, presumed negative. SARS-CoV-2 PCR Testing was performed using the Aptima SARS-CoV-2 Assay on the [employer] Instrument System. 03/22/2020 12:23 PM INFECTI OUS DISEASES Comment Additional information about this Emergency Use Authorization (EUA) assay can be found via [facility] DIAGNOSTIC the Lab Guide. LABORATORY, [facility] Comment: This test should be ordered for the dete ction of SARS-CoV-2 in individuals who meet SARS-CoV-2 clinical and/or epidemi ological criteria. Test performance is unknown in asymptomatic patients. This test is for in vitro diagnostic use under the FDA EUA for laboratories certified under CLIA to perform high com plexity testing. This test has not been FDA cleared or approved. A negative result does not rule out the presence of PCR inhibitors in the specimen or target RNA in concentration below the limit of detection for the assay. The possibility of a false negati ve should be considered if the patient's recent exposure or clinical pr esentation suggests COVID-19. This test was validated by the [facility] Infectious Diseases Diagnostic Laboratory. This laboratory i s certified under the Clinical Laboratory Improvement Amendments of 198 8 (CLIA-88) as qualified to perform high complexity laboratory testing. Specimen (Source) Anatomical Collection Method Collection Time Re ceived Time Location / / Volume Laterality Specimen from 03/21/2020 12:34 03/21/2020 nasopharyngeal PM BARBER 12:37 PM BARBER structure (specimen) Jocelyn Jang MD LAB - MICRO GENERAL ORDERABL ES Performing Organization Address City/[facility]/ZIP [facility] Phon e Number INFECTIOUS DISEASES DIAGNOSTIC [address] [facility] [place], [place] [address] LABORATORY, [facility] Asymptomatic COVID-19 Virus (Coronavirus) by PCR (03/21/2020 12:34 PM BARBER) Component Value Ref Test Analysis Performed At [facility] gist Range Method Time Signature COVID-19 Nasopharyngeal 03/21/2020 [place] Virus PCR to 12:37 PM [facility] [place] [facility] Source COVID-19 Test received-See 03/21/2020 INFECTIOUS Virus PCR to reflex to IDDL 10:46 PM DISEASES [facility] [place] - test SARS CoV2 [facility] Result (COVID-19) Virus LABORATORY, RT-PCR [facility] Specimen (Source) Anatomical Collection Method Collection Time Re ceived Time Location / / Volume Laterality Specimen from 03/21/2020 12:34 03/21/2020 nasopharyngeal PM BARBER 12:37 PM BARBER structure (specimen) Jocelyn Jang MD LAB - MICRO GENERAL ORDERABL ES Performing Organization Address City/[facility]/ZIP Code Phon e Number INFECTIOUS DISEASES [address] [place] [address] DIAGNOSTIC LABORATORY, [facility] [address] [phone] documented in this encounter Visit Diagnoses Diagnosis Encounter for screening for other viral diseases documented in this encounter
[2022-02-13 14:38] LABS: Thyroid Stimulating Hormone* < 0.015 uIU/mL (0.270-4.20)
== END 2022-02-13 09:43 | disposition home or self-care (01) ==
LOC: FBOREF 09:43
PROVIDERS: PCP Family Medicine; Visit Provider Family Medicine
DX: E03.9 Hypothyroidism, unspecified (principal)
CPT/HCPCS: 84443

== ENCOUNTER 2022-06-08 08:31 | Outpatient (CLI) | payer OTHER, SELFPAY | END 2022-06-08 08:32 | disposition home or self-care (01) | PROVIDERS: PCP Family Medicine; Visit Provider Family Medicine | DX: R53.83 Other fatigue (principal); E03.9 Hypothyroidism, unspecified; N92.0 Excessive and frequent menstruation with regular cycle | CPT/HCPCS: 80048; 84443; 85025 ==

== ENCOUNTER 2022-08-01 16:22 | Emergency (ER) | payer OTHER, SELFPAY ==
[2022-08-01 16:24] VITALS: BP 156/93; PULSE 76; RESP 18; TEMP 36.6; O2SAT 99; BMI 43.9
--- NOTE | 2022-08-01 17:08 | CRLHL7_ITS ---
For Patients: As a result of the Century Cures Act, medical imaging exams and procedure reports are released immediately into your electronic medical record. You may view this report before your referring provider. If you have questions, please contact your health care provider. Indication: Swelling and pain. Technique: Ultrasound venous duplex upper left extremity. Compression venous exam was performed using wilks-scale, color Doppler, and spectral Doppler imaging. Comparison: None. Findings: The left internal jugular, subclavian, and axillary veins are patent with normal waveforms. The brachial, basilic, and cephalic veins are fully compressible. No soft tissue abnormalities seen. Impression: Normal ultrasound of the left upper extremity veins. Dictated by Al Simental MD @ 08/01/2022 7:15:35 PM (Electronically Signed)
[2022-08-01 17:38] LABS: Basophils Absolute Auto 0.01 K/uL (0.00-0.30); Basophils Percent Auto 0.1 % (0.0-3.0); Eosinophils Absolute Auto 0.11 K/uL (0.00-0.50); Eosinophils Percent Auto 1.3 % (0.0-7.0); Hematocrit 39.6 % (33.0-51.0); Hemoglobin* 13.4 gm/dL (12.0-16.0); Immature Granulocytes Abs Auto 0.02 K/uL (0.00-0.30); Immature Granulocytes Pct Auto 0.2 %; Lymphocytes Absolute Auto 2.05 K/uL (0.90-2.90); Lymphocytes Percent Auto 24.9 % (20-44); Mean Corpuscular HGB Conc 34 gm/dL (32-36); Mean Corpuscular Hemoglobin 29 pg (26-34); Mean Corpuscular Volume 85 fL (80-100); Monocytes Percent Auto 7.4 % (0.0-11.0); Neutrophils Absolute Auto 5.43 K/uL (1.7-7.0); Neutrophils Percent Auto 66.1 % (42.0-72.0); Platelet Count* 206 K/uL (140-440); RDW Coefficient of Variation % 12.5 % (11.5-15.5); Red Blood Count 4.67 m/uL (4.00-5.20); White Blood Count* 8.23 K/uL (4.50-11.00)
[2022-08-01 17:39] LABS: Slide Review Reflex No
[2022-08-01 17:52] LABS: Albumin* 4.6 g/dL (3.3-5.0); Chloride* 103 mmol/L (96-114)
[2022-08-01 17:53] LABS: Sodium* 137 mmol/L (135-149)
[2022-08-01 17:55] LABS: Creatinine* 0.6 mg/dL (0.5-1.5); D Dimer Quantitative* 0.46 ug/ml (0.00-0.50); Est. Creatinine Clearance* 124.84; Estimated Glomerular Filt Rate 118 ml/min
[2022-08-01 17:56] LABS: Alanine Aminotransferase* 35 U/L (4-35); Alkaline Phosphatase* 72 U/L (40-150); Aspartate Amino Transferase* 30 U/L (12-35); Bilirubin Direct* 0.3 mg/dL (0.0-0.5); Bilirubin Total* 0.8 mg/dL (0.1-1.5); Blood Urea Nitrogen* 14 mg/dL (5-24); Calcium* 9.3 mg/dL (8.4-10.6); Carbon Dioxide* 26 mmol/L (20-32); Glucose* 90 mg/dL (60-115); Total Protein* 8.1 g/dL (6.0-8.3)
[2022-08-01 17:59] LABS: C Reactive Protein* 1.1 mg/dL (0.5-1.0)
--- NOTE | 2022-08-01 18:04 | ED.GENADULT ---
HPI - General Adult General Date Seen: 08/01/22 Chief complaint: Shortness of Breath/Dyspnea Stated complaint: Short of Breath Dizzy Time Seen by Provider: 08/01/22 16:24 Source: patient Mode of arrival: ambulatory Limitations: no limitations History of Present Illness HPI narrative: Patient is a 37-year-old woman who says for the past week or so she has had a sore area in her left arm which feels like a bruise although she has not seen any bruise. This is gotten worse over the past couple of days and now extends from her mid forearm up to just above her elbow. It is maybe a little red in that area now too. Today, she feels like she has some dyspnea on exertion. She says she normally walks a lot at work and today she has found that more difficult. She has not had chest pain. She denies fever cough. She says she always has some swelling in her ankles and feet and that is baseline. No change. No history of DVT or PE for her, she is unaware of any history in family members. She does not take control pills. She does not smoke. Denies any history of asthma or COPD. Related Data Previous Rx's Medication Instructions Recorded levothyroxine 200 mcg tablet 200 mcg PO DAILY #90 tabs 03/06/22 escitalopram oxalate 20 mg tablet 20 mg PO DAILY #30 tabs 05/01/22 uuopyvbmcq-wvbobtsppgxkb-xgttesjk 1 cap PO Q6H PRN pain #30 caps 06/08/22 50 mg-300 mg-40 mg capsule (Fioricet) naproxen 500 mg tablet 500 mg PO BID #60 tabs 06/08/22 cetirizine 10 mg tablet (Zyrtec) 10 mg PO QDAY #30 tabs 07/27/22 duloxetine 60 mg capsule,delayed 60 mg PO QDAY #90 caps 07/27/22 release (Cymbalta) modafinil 100 mg tablet 100 mg PO QAM #30 tabs 07/27/22 Allergies Allergy/AdvReac Type Severity Reaction Status Date / Time cinnamon Allergy Severe tongue Verified 08/01/22 16:24 swelling penicillin V Allergy Unknown tongue and Verified 08/01/22 16:24 throat swelling Review of Systems Status of ROS: Reports: 10 or more systems reviewed and unremarkable except as noted in History and below PFSH [facility] Medical History Chronic daily headache ?R51.9 - Headache, unspecified (ICD-10) Fatigue ?R53.83 - Other fatigue (ICD-10) Major depression, recurrent ?F33.9 - Major depressive disorder, recurrent, unspecified (ICD-10) Post herpetic neuralgia ?B02.29 - Other postherpetic nervous system involvement (ICD-10) Shingles ?B02.9 - Zoster without complications (ICD-10) Menorrhagia ?N92.0 - Excessive and frequent menstruation with regular cycle (ICD-10) Hypothyroidism (01/12/09) ?E03.9 - Hypothyroidism, unspecified (ICD-10) Generalized anxiety disorder ?F41.1 - Generalized anxiety disorder (ICD-10) Exogenous obesity ?E66.09 - Other obesity due to excess calories (ICD-10) Excessive daytime sleepiness ?G47.19 - Other hypersomnia (ICD-10) Difficulty sleeping ?G47.9 - Sleep disorder, unspecified (ICD-10) Acne vulgaris ?L70.0 - Acne vulgaris (ICD-10) Surgical History (Updated 10/23/21 @ 19:56 by Frnacoise Johnson MD) History of breast lump/mass excision ?Z98.890 - Other specified postprocedural states (ICD-10) H/O total vaginal hysterectomy ?Z90.710 - Acquired absence of both cervix and uterus (ICD-10) History of tonsillectomy and adenoidectomy ?Z90.89 - Acquired absence of other organs (ICD-10) History of laparoscopic cholecystectomy ?Z90.49 - Acquired absence of other specified parts of digestive tract (ICD-10) History of appendectomy (01/12/09) ?Z90.49 - Acquired absence of other specified parts of digestive tract (ICD-10) Family History (Updated 09/02/21 @ 08:56 by Derek Pearson) Other Breast cancer Social History (Updated 09/02/21 @ 08:57 by Derek Pearson) 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 In general, an alert, well-appearing patient. Head: Normocephalic, atraumatic. Eyes: Pupils are equal reactive. Extraocular movements are full. Conjunctivae are normal. ENT: Mucous membranes are moist. Throat is normal. Neck: Supple without lymphadenopathy. Heart: Regular rate and rhythm. No murmur or rub. Lungs: Clear bilaterally. No increased work of breathing, crackles or wheezes. Abdomen: Soft and nontender. No organomegaly. Extremities: Well perfused. No edema. No calf tenderness. Pulses intact. Neurologic: Patient is alert and oriented to person and place. Speech is fluent. Face is symmetric. Moves all extremities equally. Affect: Normal. Skin: Warm and dry. Well perfused. Const: Vital Signs, click to edit/add: Vital Signs - 24 hr 08/01/22 16:24 08/01/22 19:25 Temperature 97.8 F Pulse Rate [Right Pulse Oximeter] 76 88 Respiratory Rate 18 18 Blood Pressure [Ri ght Upper Arm] 156/93 H 148/90 H Pulse Oximetry 99 98 Oxygen Delivery Me thod Room Air Course Course Hospital Course: Given the patient had some mild erythema and some tenderness in the left arm I did a Doppler primarily to see if there is any evidence of superficial thrombophlebitis there and also just to reassure her that there was no evidence of DVT. This is read as negative entirely. In terms of her dyspnea on exertion, I did not find any cause for that. Her lungs are clear without any evidence of bronchospasm. She is not hypoxic. Metabolic panel is normal, CO2 is 26. LFTs are normal, CRP is 1.1. BNP is less than 20, point of care troponin is 0. EKG by my review showed a normal sinus rhythm, ventricular rate of 77. No acute ischemic changes. A D-dimer was normal at 0.46. Discussed with her that at this time I do not have a clear cause for her symptoms. There is no evidence of an infectious cause, significant bronchospasm, pulmonary edema, pulmonary embolism. My suspicion for anginal equivalent is rather low given that this just started today and given lack of risk factors. I would like her to follow up with primary care for recheck. Return at any time for acute worsening. Vital Signs Vital signs: Initial Vital Signs Temperature 97.8 F 08/01/22 16:24 Temperature Source Temporal Artery Scan 08/01/22 16:24 Pulse Rate 76 08/01/22 16:24 Pulse Rhythm Regular 08/01/22 16:24 Pulse Strength 3+ Normal 08/01/22 16:24 Respiratory Rate 18 08/01/22 16:24 Blood Pressure 156/93 H 08/01/22 16:24 Blood Pressure Mean 114 H 08/01/22 16:24 Blood Pressure Position Sitting 08/01/22 16:24 Pulse Oximetry 99 08/01/22 16:24 Oxygen Delivery Method Room Air 08/01/22 16:24 Vital Signs Temperature 97.8 F 08/01/22 16:24 Pulse Rate 76 08/01/22 16:24 Respiratory Rate 18 08/01/22 16:24 Blood Pressure 156/93 H 08/01/22 16:24 Pulse Oximetry 99 08/01/22 16:24 Oxygen Delivery Method Room Air 08/01/22 16:24 Temperature 97.8 F 08/01/22 16:24 Pulse Rate 88 08/01/22 19:25 Respiratory Rate 18 08/01/22 19:25 Blood Pressure 148/90 H 08/01/22 19:25 Pulse Oximetry 98 08/01/22 19:25 Oxygen Delivery Method Room Air 08/01/22 16:24 Medical Decision Making Lab Data Labs: Lab Results 08/01/22 08/01/22 08/01/22 Range/Units 17:15 17:30 17:30 WBC 8.23 (4.50-11.00) K/uL RBC 4.67 (4.00-5.20) m/uL Hgb 13.4 (12.0-16.0) gm/dL Hct 39.6 (33.0-51.0) % MCV 85 (80-100) fL MCH 29 (26-34) pg MCHC 34 (32-36) gm/dL RDW Coeff of Cyndi 12.5 (11.5-15.5) % Plt Count 206 (140-440) K/uL Neut % (Auto) 66.1 (42.0-72.0) % Lymph % (Auto) 24.9 (20-44) % [place] % (Auto) 7.4 (0.0-11.0) % Eos % (Auto) 1.3 (0.0-7.0) % Baso % (Auto) 0.1 (0.0-3.0) % Neut # (Auto) 5.43 (1.7-7.0) K/uL Lymph # (Auto) 2.05 (0.90-2.90) K/uL [place] # (Auto) 0.60 (0.00-0.90) K/UL Eos # (Auto) 0.11 (0.00-0.50) K/uL Baso # (Auto) 0.01 (0.00-0.30) K/uL D-Dimer Quant (PE/DVT) 0.46 (0.00-0.50) ug/ml Sodium 137 (135-149) mmol/L Potassium 4.0 (3.6-5.1) mmol/L Chloride 103 (96-114) mmol/L Carbon Dioxide 26 (20-32) mmol/L BUN 14 (5-24) mg/dL Creatinine 0.6 (0.5-1.5) mg/dL Estimated Creat Clear 124.84 Estimated GFR 118 ml/min Glucose 90 (60-115) mg/dL Calcium 9.3 (8.4-10.6) mg/dL Total Bilirubin 0.8 Cancelled (0.1-1.5) mg/dL Direct Bilirubin 0.3 (0.0-0.5) mg/dL AST (12-35) U/L ALT (4-35) U/L Alkaline Phosphatase (40-150) U/L C-Reactive Protein (0.5-1.0) mg/dL NT-Pro-B Natriuret Pep pg/mL Total Protein (6.0-8.3) g/dL Albumin (3.3-5.0) g/dL POC Troponin I 0.00 L (0.01-0.04) ng/ml 08/01/22 08/01/22 08/01/22 Range/Units 17:30 17:30 17:30 WBC (4.50-11.00) K/uL RBC (4.00-5.20) m/uL Hgb (12.0-16.0) gm/dL Hct (33.0-51.0) % MCV (80-100) fL MCH (26-34) pg MCHC (32-36) gm/dL RDW Coeff of Cyndi (11.5-15.5) % Plt Count (140-440) K/uL Neut % (Auto) (42.0-72.0) % Lymph % (Auto) (20-44) % [place] % (Auto) (0.0-11.0) % Eos % (Auto) (0.0-7.0) % Baso % (Auto) (0.0-3.0) % Neut # (Auto) (1.7-7.0) K/uL Lymph # (Auto) (0.90-2.90) K/uL [place] # (Auto) (0.00-0.90) K/UL Eos # (Auto) (0.00-0.50) K/uL Baso # (Auto) (0.00-0.30) K/uL D-Dimer Quant (PE/DVT) (0.00-0.50) ug/ml Sodium (135-149) mmol/L Potassium (3.6-5.1) mmol/L Chloride (96-114) mmol/L Carbon Dioxide (20-32) mmol/L BUN (5-24) mg/dL Creatinine (0.5-1.5) mg/dL Estimated Creat Clear Estimated GFR ml/min Glucose (60-115) mg/dL Calcium (8.4-10.6) mg/dL Total Bilirubin (0.1-1.5) mg/dL Direct Bilirubin Cancelled (0.0-0.5) mg/dL AST 30 Cancelled (12-35) U/L ALT 35 Cancelled (4-35) U/L Alkaline Phosphatase 72 (40-150) U/L C-Reactive Protein (0.5-1.0) mg/dL NT-Pro-B Natriuret Pep pg/mL Total Protein (6.0-8.3) g/dL Albumin (3.3-5.0) g/dL POC Troponin I (0.01-0.04) ng/ml 08/01/22 08/01/22 08/01/22 Range/Units 17:30 17:30 17:30 WBC (4.50-11.00) K/uL RBC (4.00-5.20) m/uL Hgb (12.0-16.0) gm/dL Hct (33.0-51.0) % MCV (80-100) fL MCH (26-34) pg MCHC (32-36) gm/dL RDW Coeff of Cyndi (11.5-15.5) % Plt Count (140-440) K/uL Neut % (Auto) (42.0-72.0) % Lymph % (Auto) (20-44) % [place] % (Auto) (0.0-11.0) % Eos % (Auto) (0.0-7.0) % Baso % (Auto) (0.0-3.0) % Neut # (Auto) (1.7-7.0) K/uL Lymph # (Auto) (0.90-2.90) K/uL [place] # (Auto) (0.00-0.90) K/UL Eos # (Auto) (0.00-0.50) K/uL Baso # (Auto) (0.00-0.30) K/uL D-Dimer Quant (PE/DVT) (0.00-0.50) ug/ml Sodium (135-149) mmol/L Potassium (3.6-5.1) mmol/L Chloride (96-114) mmol/L Carbon Dioxide (20-32) mmol/L BUN (5-24) mg/dL Creatinine (0.5-1.5) mg/dL Estimated Creat Clear Estimated GFR ml/min Glucose (60-115) mg/dL Calcium (8.4-10.6) mg/dL Total Bilirubin (0.1-1.5) mg/dL Direct Bilirubin (0.0-0.5) mg/dL AST (12-35) U/L ALT (4-35) U/L Alkaline Phosphatase Cancelled (40-150) U/L C-Reactive Protein 1.1 H (0.5-1.0) mg/dL NT-Pro-B Natriuret Pep < 20 Cancelled pg/mL Total Protein 8.1 Cancelled (6.0-8.3) g/dL Albumin 4.6 (3.3-5.0) g/dL POC Troponin I (0.01-0.04) ng/ml 08/01/22 Range/Units 17:30 WBC (4.50-11.00) K/uL RBC (4.00-5.20) m/uL Hgb (12.0-16.0) gm/dL Hct (33.0-51.0) % MCV (80-100) fL MCH (26-34) pg MCHC (32-36) gm/dL RDW Coeff of Cyndi (11.5-15.5) % Plt Count (140-440) K/uL Neut % (Auto) (42.0-72.0) % Lymph % (Auto) (20-44) % [place] % (Auto) (0.0-11.0) % Eos % (Auto) (0.0-7.0) % Baso % (Auto) (0.0-3.0) % Neut # (Auto) (1.7-7.0) K/uL Lymph # (Auto) (0.90-2.90) K/uL [place] # (Auto) (0.00-0.90) K/UL Eos # (Auto) (0.00-0.50) K/uL Baso # (Auto) (0.00-0.30) K/uL D-Dimer Quant (PE/DVT) (0.00-0.50) ug/ml Sodium (135-149) mmol/L Potassium (3.6-5.1) mmol/L Chloride (96-114) mmol/L Carbon Dioxide (20-32) mmol/L BUN (5-24) mg/dL Creatinine (0.5-1.5) mg/dL Estimated Creat Clear Estimated GFR ml/min Glucose (60-115) mg/dL Calcium (8.4-10.6) mg/dL Total Bilirubin (0.1-1.5) mg/dL Direct Bilirubin (0.0-0.5) mg/dL AST (12-35) U/L ALT (4-35) U/L Alkaline Phosphatase (40-150) U/L C-Reactive Protein (0.5-1.0) mg/dL NT-Pro-B Natriuret Pep pg/mL Total Protein (6.0-8.3) g/dL Albumin Cancelled (3.3-5.0) g/dL POC Troponin I (0.01-0.04) ng/ml Discharge Plan Discharge Clinical Impression: RICH (dyspnea on exertion), Cellulitis Patient Disposition: Home, Self-Care Condition: Stable Instructions: Cellulitis (ED) Additional Instructions: Antibiotic as prescribed. Primary care follow-up. Return for worsening. Prescriptions: No Action modafinil 100 mg tablet 100 mg PO QAM Qty: 30 0RF cetirizine [Zyrtec] 10 mg tablet 10 mg PO QDAY Qty: 30 1RF levothyroxine 200 mcg tablet 200 mcg PO DAILY Qty: 90 1RF Rx Instructions: total dose is now 200 mcg naproxen 500 mg tablet 500 mg PO BID Qty: 60 2RF ocfhdwjfaf-xzrofjbyhrfdi-habi [Fioricet] 50-300-40 mg capsule 1 cap PO Q6H PRN (Reason: pain) Qty: 30 0RF escitalopram oxalate 20 mg tablet 20 mg PO DAILY Qty: 30 0RF duloxetine [Cymbalta] 60 mg capsule,delayed release(DR/EC) 60 mg PO QDAY Qty: 90 1RF Follow Up/Referrals: Jomar Seaman MD [Primary Care Provider] - Stand Alone Forms: [employer] Info Instructions
[2022-08-01 18:06] LABS: NT Pro B Type NatriureticPept* < 20 pg/mL
[2022-08-01 19:25] VITALS: BP 148/90; PULSE 88; RESP 18; O2SAT 98
== END 2022-08-01 19:33 | disposition home or self-care (01) ==
PROVIDERS: Emergency Provider Emergency Medicine; PCP Family Medicine
DX: R06.00 Dyspnea, unspecified (principal); L03.90 Cellulitis, unspecified
CPT/HCPCS: 36415; 80048; 80076; 83880; 84484; 85025; 85379; 86140; 93005; 93971; 99284

== ENCOUNTER 2022-12-07 09:03 | Outpatient (CLI) | payer OTHER, SELFPAY | END 2022-12-07 09:04 | disposition home or self-care (01) | PROVIDERS: PCP Family Medicine; Visit Provider Family Medicine | DX: R53.83 Other fatigue (principal); E03.9 Hypothyroidism, unspecified; N92.0 Excessive and frequent menstruation with regular cycle | CPT/HCPCS: 80048; 84439; 84443 ==

== ENCOUNTER 2023-05-30 08:15 | Outpatient (CLI) | payer OTHER, SELFPAY | END 2023-05-30 08:16 | disposition home or self-care (01) | LOC: NFLDREF 06-12 20:51 | PROVIDERS: PCP Family Medicine; Referring Provider Family Medicine; Visit Provider Family Medicine | DX: E03.9 Hypothyroidism, unspecified (principal); R51.9 Headache, unspecified | CPT/HCPCS: 80048; 84443 ==

== ENCOUNTER 2023-09-06 09:26 | Outpatient (CLI) | payer OTHER, SELFPAY ==
--- OUTSIDE RECORDS SUMMARY | 2023-09-06 09:29 | XMS_ITS | Referral Summary ---
Author Organization [facility] Address [address] [place] [id number] Care Team Providers Care Circulation Librarian Name Role Phone No Ref-Primary, Physician Primary Care Provider Allergies Active Allergy Reactions Criticality Noted Date Comments Penicillins Anaphylaxis High 04/01/2020 Medications Medication Sig Dispensed Refills Start Date End Date Status levothyroxine (SYNTHROID/LEVOTHROID) 200 MCG tabletIndications:Othe r specified hypothyroidism Take 1 tablet (200 mcg) by mouth daily 90 tablet 3 04/19/2020 Active oxyCODONE (ROXICODONE) 5 MG tabletIndications:Zain lloma of right breast Take 1-2 tablets (5-10 mg) by mouth every 4 hours as needed for moderate to severe pain 10 tablet 05/14/2020 Active Active Problems Problem Noted Date Diagnosed Date Papilloma of breast 04/02/2020 Overview: Added automatically from request for surgery [id number] Morbid obesity 04/01/2020 Immunizations Name Administration Dates Next Due Flu, Unspecified 02/04/2015,02/03/2013 Influenza (IIV3) PF 01/13/2014 TD,PF 7+ (Tenivac) 03/26/1998 TDAP Vaccine (Adacel) 08/23/2016,03/24/2015 Social History Tobacco Use Types Packs/Day Years Used Date Smoking Tobacco: Never Smokeless Tobacco: Never Tobacco Cessation:Counseling Given: No Alcohol Use Standard Drinks/Week Comments Yes 0 (1 standard drink = 0.6 oz pur e alcohol) 2 drinks per year AUDIT-C Answer Date Recorded Q1: How often do you have a drink containing alc ohol? Never 04/19/2020 Average Number of Drinks Not on file 021 Frequency of Binge Drinking Not on file 03/27 PHQ-2 Answer Date Recorded PHQ-2 Score 0 04/19/2020 Adolescent Education Answer Date Record ed Getting School Help Needed Not on file 12/19 Sex and Gender Information Value Date Recorded Sex Assigned at Not on file Gender Identity Not on file Sexual Orientation Not on file Last Filed Vital Signs Vital Sign Reading Time Taken Comments Blood Pressure 105/57 05/14/2020 12:50 PM MANAGER [employer] EVENTS Pulse 59 05/14/2020 12:50 PM [employer] Temperature 36.4 ??C (97.6 ??F) 05/14/2020 12:[address] Respiratory Rate 16 05/14/2020 12:50 PM [employer]NAGER [employer] Oxygen Saturation 100% 05/14/2020 12:50 PM [employer]NAGER [employer] Inhaled Oxygen Concentration - - Weight 122 kg (268 lb 14.4 oz) 05/14/2020 7:14 A M [employer] Height 170.2 cm (5' 7) 05/14/2020 7:14 AM [employer]NA[employer] Body Mass Index 42.12 05/14/2020 7:14 AM [employer]NA[employer] Plan of Treatment Not on file Administered Medications Care Teams Circulation Librarian Relationship Specialty Start Date End Date No Ref-Primary, Physician PCP - General 04/01/20
--- OUTSIDE RECORDS SUMMARY | 2023-09-06 09:29 | XMS_ITS | Clinical Summary ---
Author Organization [facility] Address [place], [place] [address] Care Team Providers Care Solaris Administrator Name Role Phone Jomar Seaman MD Primary Care Provider + Allergies Active Allergy Reactions Criticality Noted Date Comments Cinnamon Anaphylaxis 08/27/2006 Penicillins Anaphylaxis 08/27/2006 Medications Medication Sig Dispensed Refills Start Date End Date Status levothyroxine (SYNTHROID) 200 mcg tabletIndications:Uns pecified hypothyroidism TAKE 1 TABLET BY MOUTH EVERY DAY BEFORE BREAKFAST 30 tablet 0 02/07/2011 Active Additional Information Patient taking differently: 150 mcgOral BEFORE BREAKFAST, Reported on 08/12/2017 norgestimate-ethinyl estradiol, 0.25-35 mg-mcg, (MONO-LINYAH) 0.25-35 mg-mcg tablet Take 1 tablet by mouth once daily. Active ibuprofen (ADVIL; MOTRIN) 200 mg cap Take 400 mg by mouth one time. Active Active Problems Problem Noted Date Diagnosed Date Unspecified hypothyroidism 05/10/2007 Migraine, unspecified, witho ut mention of intractable migraine without mention of status migrainosus 04/23/2007 Allergic rhinitis, cause unspecified Resolved Problems Problem Noted Date Diagnosed Date Resolved Date Presence of intrauterine contraceptive device 10/28/19 08 08/02/2010 Overview: Mirena IUD placed 03/2005 Unspecified asthma(493.90) 0 04/23/2007 Immunizations Name Administration Dates Next Due Td (Age >=7 Years) 03/26/1998 Family History Medical History Relation Name Comments Good Health Father Other Maternal Grandmother Alzheim ers Good Health Mother Good Health Sister Relation Name Status Comments Father Maternal Grandmother Mother Sister Social History Tobacco Use Types Packs/Day Years Used Date Smoking Tobacco: Never Smokeless Tobacco: Never Comments:never Alcohol Use Standard Drinks/Week Comments Yes 0 (1 standard drink = 0.6 oz pure alcohol) occasionally, maybe once a month Sex and Gender Information Value Date Recorded Sex Assigned at Not on file Gender Identity Not on file Sexual Orientation Not on file Obstetrics History Last Filed Vital Signs Vital Sign Reading Time Taken Comments Blood Pressure 145/65 08/12/2017 10:00 PM CDT Pulse 66 08/12/2017 10:00 PM CDT Temperature 36.7 ??C (98 ??F) 08/12/2017 7:52 PM CDT Respiratory Rate 18 08/12/2017 10:0 0 PM CDT Oxygen Saturation 100% 08/12/2017 10: 00 PM CDT Inhaled Oxygen Concentration - - Weight 122.2 kg (269 lb 4.8 oz) 08/12/2017 7:52 PM CDT Height 162.6 cm (5' 4) 08/12/2017 7:52 PM CDT Body Mass Index 46.23 08/12/2017 7:52 PM CDT Plan of Treatment Health Maintenance Due Date Last Done Comments Tdap 1996 Depression screening for age 12+ 1997 HIV for age 15-65 2000 BMI (ht and wt on same day) for age 18+ 08/01/2003 Hepatitis C screening for age 18-79 08/01/2003 Tetanus booster 03/26/2008 03/26/1998 COVID-19 vaccine series (2022- season) 2022 Influenza for age 9-49 11/25/2023 Pap test for age 21-65 06/13/2024 , 06/13/2021, 04/16/2009, Additional history exists Pneumococcal series for age 6-64 Aged Out No longer eligible based on patient's age to complete this topic Procedures Procedure Name Priority Date/Time Associated Diagnosis Comments HPV THIN PREP Routine 06/13/2021 12:00 PM CDT from Last 3 Months or Most Recently Relevant to Health Maintenance Results * HPV HIGH RISK (06/13/2021 12:00 PM CDT) TYPE 16 Negative Negative 06/17/2021 10:56 AM CDT [facility] TYPE 18 Negative Negative 06/17/2021 10:56 AM CDT [facility] OTHER HIGH RISK TYPES Negative Negative 06/17/2021 10:56 AM CDT [facility] Other (Cervical/Vagina l) 06/13/2021 12:00 PM CDT 06/15/2021 8:27 AM CDT Narrative [facility] - 06/17/2021 10:56 AM CDT HPV types 16, 18, 31, 33, 35, 39, 45, 51, 52, 56, 58, 59, 66 and 68 DNA were undetectable or below the pre-set threshold. Methodology: Pascual John 4800 HPV Test Cat Jarvis OVEREDGER MICROBIOLOGY [facility] [address] [place], [place] [address] [place] [address], from Last 3 Months or Most Recently Relevant to Health Maintenance Care Teams Solaris Administrator Relationship Specialty Start Date End Date Jomar Seaman MD [address] [place] [address] PCP - General Family Practice 12/10/20
--- OUTSIDE RECORDS SUMMARY | 2023-09-06 09:29 | XMS_ITS | Clinical Summary ---
Author Organization [facility] Address [address] [place] [id number] Care Team Providers Care Geriatric Physician Name Role Phone No Ref-Primary, Physician Primary [...] Overview: Added automatically from request for surgery [id number] Morbid obesity 04/01/2020 Immunizations Name Administration Dates Next Due Flu, Unspecified 02/04/2015,02/03/2013 Influenza (IIV3) PF 01/13/2014 TD,PF 7+ (Tenivac) 03/26/1998 TDAP Vaccine (Adacel) 08/23/2016,03/24/2015 Family History Medical History Relation Comments Diabetes [...] Comments Blood Pressure 105/57 05/14/2020 12:50 PM GATHERING MACHINE SETTER Pulse 59 05/14/2020 12:50 PM GATHERING MACHINE SETTER Temperature 36.4 ??C (97.6 ??F) 05/14/2020 12:[address] Respiratory Rate 16 05/14/2020 12:50 PM GATHERING MACHINE SETTER Oxygen Saturation 100% 05/14/2020 12:50 PM GATHERING MACHINE SETTER Inhaled Oxygen Concentration - - Weight 122 kg (268 lb 14.4 oz) 05/14/2020 7:14 A M GATHERING MACHINE SETTER Height 170.2 cm (5' 7) 05/14/2020 7:14 AM GATHERING MACHINE SETTER Body Mass Index 42.12 05/14/2020 7:14 AM GATHERING MACHINE SETTER Plan of Treatment Not on file Care Teams Geriatric Physician Relationship Specialty Start Date End Date No Ref-Primary, Physician PCP - General 04/01/20
== END 2023-09-06 09:27 | disposition home or self-care (01) ==
PROVIDERS: PCP Family Medicine; Visit Provider Family Medicine
DX: R42 Dizziness and giddiness (principal)
CPT/HCPCS: 80048; 83735; 85025

== ENCOUNTER 2024-02-14 09:44 | Outpatient (CLI) | payer OTHER, SELFPAY ==
--- OUTSIDE RECORDS SUMMARY | 2024-02-14 09:48 | XMS_ITS | Clinical Summary ---
Author Organization [facility] Address [place], [place] [address] Care Team Providers Care Internal Sales Engineer Name Role Phone Jomar Seaman MD Primary [...] of intrauterine contraceptive device 10/28/19 08 08/02/2010 Overview (10/28/2007): Mirena IUD placed 03/2005 Unspecified asthma(493.90) 0 [...] 66 08/12/2017 10:00 PM CDT Temperature 36.7 C (98 F) 08/12/2017 7:52 PM CDT Respiratory Rate 18 [...] Tetanus booster 03/26/2008 03/26/1998 COVID-19 vaccine series (2023- season) 2023 Influenza for age 9-49 11/25/2023 Pap test for age 21-65 06/13/2024 , 06/13/2021, 04/16/2009, Additional history exists Pneumococcal series for age 6-64 Aged Out No longer eligible based on patient's age to complete this topic Procedures Procedure Name Priority Date/Time Associated Diagnosis Comments HPV HIGH RISK Routine 06/13/2021 12:00 PM CDT from Last 3 Months or Most Recently Relevant to Health Maintenance Results * HPV HIGH RISK (06/13/2021 12:00 PM CDT) TYPE 16 Negative Negative 06/17/2021 10:56 AM CDT [facility] TYPE 18 Negative Negative 06/17/2021 10:56 AM CDT [facility] OTHER HIGH RISK TYPES Negative Negative 06/17/2021 10:56 AM CDT [facility] Other (Cervical/Vagina l) 06/13/2021 12:00 PM CDT 06/15/2021 8:27 AM CDT Narrative [facility] - 06/17/2021 10:56 AM CDT HPV types 16, 18, 31, 33, 35, 39, 45, 51, 52, 56, 58, 59, 66 and 68 DNA were undetectable or below the pre-set threshold. Methodology: Pascual John 4800 HPV Test Cat Jarvis EMPLOYMENT LAW ATTORNEY MICROBIOLOGY [facility] [address] [place] [address] [facility] [address] [place] [address], from Last 3 Months or Most Recently Relevant to Health Maintenance Care Teams Internal Sales Engineer Relationship Specialty Start Date End Date Jomar Seaman MD [address] [place] [address] PCP - General Family Practice 12/10/20
--- OUTSIDE RECORDS SUMMARY | 2024-02-14 09:48 | XMS_ITS | Referral Summary ---
Author Organization [facility] Address [address] [place] [id number] Care Team Providers Care Telephone Order Clerk Room Service Name Role Phone No Ref-Primary, Physician Primary Care Provider Allergies Active Allergy Reactions Criticality Noted Date Comments Penicillins Anaphylaxis High 04/01/2020 Medications levothyroxine (SYNTHROID/LEVOTHRO ID) 200 MCG tabletIndications:O ther specified hypothyroidism Take 1 tablet (200 mcg) by mouth daily 90 tablet 3 1 Active oxyCODONE (ROXICODONE) 5 MG tabletIndications:P apilloma of right breast Take 1-2 tablets (5-10 mg) by mouth every 4 hours as needed for moderate to severe pain 10 tablet 1 Active Active Problems Problem Noted Date Diagnosed Date Papilloma of breast 04/02/2020 Overview (04/02/2020): Added automatically from request for surgery [id number] Morbid obesity 04/01/2020 Immunizations Name Administration Dates [...] School Help Needed Not on file 12/19 Comments No Sex and Gender Information Value Date Recorded Sex Assigned at Not on file Legal Sex Female 4:44 AM RISK INTERN Gender Identity Not on file Sexual Orientation Not on file Last Filed Vital Signs Vital Sign Reading Time Taken Comments Blood Pressure 105/57 05/14/2020 12:50 PM RISK INTERN Pulse 59 05/14/2020 12:50 PM RISK INTERN Temperature 36.4 C (97.6 F) 05/14/2020 12:50 PM RISK INTERN Respiratory Rate 16 05/14/2020 12:50 PM RISK INTERN Oxygen Saturation 100% 05/14/2020 12:50 PM RISK INTERN Inhaled Oxygen Concentration - - Weight 122 kg (268 lb 14.4 oz) 05/14/2020 7:14 A M RISK INTERN Height 170.2 cm (5' 7) 05/14/2020 7:14 AM RISK INTERN Body Mass Index 42.12 05/14/2020 7:14 AM RISK INTERN Plan of Treatment Not on file Administered Medications Insurance [employer] Care Teams Telephone Order Clerk Room Service Relationship Specialty Start Date End Date No Ref-Primary, Physician PCP - General 04/01/20
--- OUTSIDE RECORDS SUMMARY | 2024-02-14 09:48 | XMS_ITS | Clinical Summary ---
Author Organization [facility] Address [address] [place] [address] Care Team Providers Care Pole Shaver Helper Name Role Phone No Ref-Primary, Physician Primary [...] (04/02/2020): Added automatically from request for surgery [id number] Morbid obesity 04/01/2020 Immunizations Name Administration Dates [...] on file Legal Sex Female 4:44 AM DRAWER WAXER Gender Identity Not on file Sexual Orientation Not on file Last Filed Vital Signs Vital Sign Reading Time Taken Comments Blood Pressure 105/57 05/14/2020 12:50 PM DRAWER WAXER Pulse 59 05/14/2020 12:50 PM DRAWER WAXER Temperature 36.4 C (97.6 F) 05/14/2020 12:50 PM DRAWER WAXER Respiratory Rate 16 05/14/2020 12:50 PM DRAWER WAXER Oxygen Saturation 100% 05/14/2020 12:50 PM DRAWER WAXER Inhaled Oxygen Concentration - - Weight 122 kg (268 lb 14.4 oz) 05/14/2020 7:14 A M DRAWER WAXER Height 170.2 cm (5' 7) 05/14/2020 7:14 AM DRAWER WAXER Body Mass Index 42.12 05/14/2020 7:14 AM DRAWER WAXER Plan of Treatment Not on file Insurance [employer] Care Teams Pole Shaver Helper Relationship Specialty Start Date End Date No Ref-Primary, Physician PCP - General 04/01/20
== END 2024-02-14 09:45 | disposition home or self-care (01) ==
PROVIDERS: PCP Family Medicine; Visit Provider Family Medicine
DX: Z00.00 Encounter for general adult medical examination without abnormal findings (principal); R53.83 Other fatigue; E03.9 Hypothyroidism, unspecified; E66.09 Other obesity due to excess calories; M25.50 Pain in unspecified joint; F41.9 Anxiety disorder, unspecified; Z13.6 Encounter for screening for cardiovascular disorders
CPT/HCPCS: 80048; 80061; 84439; 84443; 85025; 86038; 86039; 86431

== ENCOUNTER 2024-02-25 13:01 | Outpatient (CLI) | payer OTHER, SELFPAY ==
--- OUTSIDE RECORDS SUMMARY | 2024-02-25 13:04 | XMS_ITS | Clinical Summary ---
Author Organization [facility] Address [address] [place] [id number] Care Team Providers Care Commercial Carpet Installer Name Role Phone No Ref-Primary, Physician Primary [...] (04/02/2020): Added automatically from request for surgery [id number] Morbid obesity 04/01/2020 Immunizations Name Administration Dates [...] on file Legal Sex Female 4:44 AM COUNTER HELP Gender Identity Not on file Sexual Orientation Not on file Last Filed Vital Signs Vital Sign Reading Time Taken Comments Blood Pressure 105/57 05/14/2020 12:50 PM COUNTER HELP Pulse 59 05/14/2020 12:50 PM COUNTER HELP Temperature 36.4 C (97.6 F) 05/14/2020 12:50 PM COUNTER HELP Respiratory Rate 16 05/14/2020 12:50 PM COUNTER HELP Oxygen Saturation 100% 05/14/2020 12:50 PM COUNTER HELP Inhaled Oxygen Concentration - - Weight 122 kg (268 lb 14.4 oz) 05/14/2020 7:14 A M COUNTER HELP Height 170.2 cm (5' 7) 05/14/2020 7:14 AM COUNTER HELP Body Mass Index 42.12 05/14/2020 7:14 AM COUNTER HELP Plan of Treatment Not on file Insurance [employer] Care Teams Commercial Carpet Installer Relationship Specialty Start Date End Date No Ref-Primary, Physician PCP - General 04/01/20
--- OUTSIDE RECORDS SUMMARY | 2024-02-25 13:04 | XMS_ITS | Clinical Summary ---
Author Organization [facility] Address [place], [place] [address] Care Team Providers Care Dopeman Name Role Phone Jomar Seaman MD Primary [...] 16 Negative Negative 06/17/2021 10:56 AM CDT [facility] TYPE 18 Negative Negative 06/17/2021 10:56 AM CDT [facility] OTHER HIGH RISK TYPES Negative Negative 06/17/2021 10:56 AM CDT [facility] Other (Cervical/Vagina l) 06/13/2021 12:00 PM CDT 06/15/2021 8:27 AM CDT Narrative [facility] - 06/17/2021 10:56 AM CDT HPV types 16, 18, 31, 33, 35, 39, 45, 51, 52, 56, 58, 59, 66 and 68 DNA were undetectable or below the pre-set threshold. Methodology: Pascual John 4800 HPV Test Cat Jarvis [facility] [employer] MICROBIOLOG[employer] [facility] [address] [place] [address] [email or web address]. [address] [place] [address], from Last 3 Months or Most Recently Relevant to Health Maintenance Care Teams Dopeman Relationship Specialty Start Date End Date Joamr Seaman MD [address] [place] [address] PCP - General Family Practice 12/10/20
--- OUTSIDE RECORDS SUMMARY | 2024-02-25 13:04 | XMS_ITS | Referral Summary ---
Author Organization [facility] Address [address] [place] [address] Care Team Providers Care Media Coordinator Name Role Phone No Ref-Primary, Physician Primary [...] (04/02/2020): Added automatically from request for surgery [id number] Morbid obesity 04/01/2020 Immunizations Name Administration Dates [...] on file Legal Sex Female 4:44 AM JAILER Gender Identity Not on file Sexual Orientation Not on file Last Filed Vital Signs Vital Sign Reading Time Taken Comments Blood Pressure 105/57 05/14/2020 12:50 PM JAILER Pulse 59 05/14/2020 12:50 PM JAILER Temperature 36.4 C (97.6 F) 05/14/2020 12:50 PM JAILER Respiratory Rate 16 05/14/2020 12:50 PM JAILER Oxygen Saturation 100% 05/14/2020 12:50 PM JAILER Inhaled Oxygen Concentration - - Weight 122 kg (268 lb 14.4 oz) 05/14/2020 7:14 A M JAILER Height 170.2 cm (5' 7) 05/14/2020 7:14 AM JAILER Body Mass Index 42.12 05/14/2020 7:14 AM JAILER Plan of Treatment Not on file Administered Medications Insurance [employer] Care Teams Media Coordinator Relationship Specialty Start Date End Date No Ref-Primary, Physician PCP - General 04/01/20
== END 2024-02-25 13:02 | disposition home or self-care (01) ==
LOC: NFLDREF 13:02
PROVIDERS: PCP Family Medicine; Visit Provider Family Medicine
DX: R76.8 Other specified abnormal immunological findings in serum (principal)
CPT/HCPCS: 80076; 86225; 86256; 86381

== ENCOUNTER 2024-03-31 07:32 | Outpatient (CLI) | payer OTHER, SELFPAY ==
--- NOTE | 2024-03-31 08:00 | CRLHL7_ITS ---
For Patients: As a result of the Century Cures Act, medical imaging exams and procedure reports are released immediately into your electronic medical record. You may view this report before your referring provider. If you have questions, please contact your health care provider. Indication: VENTRAL HERNIA WO OBSTRUCTION. LEFT SIDE MID ABD PAIN Technique: CT Abdomen/Pelvis 150CC ISOVUE 370 AND WATER PREP Please note that all CT scans at this facility use dose modulation, iterative reconstruction, and/or weight-based dosing when appropriate to reduce radiation dose to as low as reasonably achievable. Comparison: 04/14/2019 Findings: At the level of the umbilicus, the distance between the rectus muscles is 7.2 cm. Umbilical hernia containing fat is noted measuring 2.7 cm on the sagittal images. No bowel involvement. Dependent atelectasis in both lung bases. No pleural effusion. Fatty infiltration of the liver with diffuse decreased attenuation. Liver measures 21.6 cm. No intrahepatic mass. Gallbladder absent. No biliary obstruction. Spleen measures 14.3 cm normal adrenal glands. Kidneys are normal. Normal pancreas. Scattered sub cm lymph nodes at the GE junction are similar. Scattered sub cm lymph nodes throughout the mesenteric fat and retroperitoneum are also unchanged. Bladder is normal. The appendix is absent. No fracture Impression: Diastasis recti. 2.7 cm fat filled umbilical hernia. Hepatic steatosis. Hepatosplenomegaly. Stable sub cm lymph nodes in the retroperitoneum and mesenteric fat along with the GE junction. Please note that all CT scans at this facility use dose modulation, iterative reconstruction, and/or weight-based dosing when appropriate to reduce radiation dose to as low as reasonably achievable. Dictated by Jomar Webber MD @ 03/31/2024 10:26:50 AM (Electronically Signed)
== END 2024-03-31 07:33 | disposition home or self-care (01) ==
LOC: CT 07:34
PROVIDERS: PCP Family Medicine; Visit Provider Surgery
DX: K43.9 Ventral hernia without obstruction or gangrene (principal); K42.9 Umbilical hernia without obstruction or gangrene; K76.0 Fatty (change of) liver, not elsewhere classified; R59.0 Localized enlarged lymph nodes
CPT/HCPCS: 74177; Q9967

== ENCOUNTER 2024-05-01 10:36 | Outpatient (CLI) | payer OTHER, SELFPAY | END 2024-05-01 10:37 | disposition home or self-care (01) | LOC: FBOREF 10:36 | PROVIDERS: PCP Family Medicine; Visit Provider Family Medicine | DX: E03.9 Hypothyroidism, unspecified (principal); R53.83 Other fatigue | CPT/HCPCS: 84439; 84443 ==

== ENCOUNTER 2024-08-20 08:15 | Outpatient (CLI) | payer OTHER, SELFPAY | END 2024-08-20 08:16 | disposition home or self-care (01) | LOC: FBOREF 08:16 | PROVIDERS: PCP Family Medicine; Visit Provider Family Medicine | DX: E03.9 Hypothyroidism, unspecified (principal) | CPT/HCPCS: 84439; 84443 ==